=== PATIENT | female | born 1965 | race Caucasian/White ===

== ENCOUNTER 2024-12-05 22:08 | Emergency (ER) | payer BC, SELFPAY ==
--- OUTSIDE RECORDS SUMMARY | 2024-12-05 22:16 | XMS_ITS | Patient Health Record ---
Author Organization [facility] Address [address] [facility] 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 Name Role Phone Rocky Disla Primary Care Provider Unavailab le Allergies Allergen (clinical drug ingredient) Drug/Non Drug Allergy documented on EMR Reaction Allergy Type Onset Date Status angiotensin-converting enzyme inhibitor (FN) vinita inhibitors (uncoded) Unknown Allergy Active Non-steroidal anti-inflammatory agent (FN) nsaids (uncoded) swelling Allergy Active ketamine Ketamine HCl Unknown Drug Allergy Acti ve Reason For Referral No Information Medications Medication SIG (Take, Route, Frequency, Duration) Notes Start Date End Date Status Carvedilol 6.25 MG TAKE ONE (1) TABLET(S) BY MOUTH TWICE A DAY. Oral; Duration: 30 Active Colchicine-Probenecid 0.5-500 MG TAKE ONE (1) TABLET(S) BY MOUTH TWICE A DAY. Oral; Duration: 30 Active oxyBUTYnin Chloride 5 MG TAKE TWO (2) TABLET(S) BY MOUTH TWICE A DAY. Oral; Duration: 30 Active Cyclobenzaprine HCl 10 MG TAKE ONE (1) TABLET(S) BY MOUTH EVERY EIGHT HOURS NEEDED. Oral; Duration: 30 Not-Taking Vitamin D (Ergocalciferol) 45816 UNIT TAKE ONE (1) CAPSULE(S) BY MOUTH ONCE A WEEK. Oral; Duration: 30 Active Montelukast Sodium 10 MG 1 tablet Orally Once a day; Duration: 30 day(s) 12/24/2018 Active Lyrica 50 MG 1 capsule Orally twice daily; Duration: 30 days 02/03/2019 Active rOPINIRole HCl 2 MG TAKE TWO (2) TABLET(S) BY MOUTH ONCE A DAY AT BEDTIME. Oral; Duration: 30 Active Citalopram Hydrobromide 40 MG TAKE ONE AND ONE-HALF (1 AND 1/2) TABLET(S) BY MOUTH ONCE A DAY. Oral; Duration: 30 Active Omeprazole 40 MG TAKE ONE (1) CAPSULE(S) BY MOUTH ONCE A DAY. Oral; Duration: 30 Active Methocarbamol 750 MG TAKE ONE (1) TABLET(S) BY MOUTH THREE TIMES A DAY FOR 7 DAYS. Oral; Duration: 30 Not-Taking Social History Tobacco Use: Social History Observation Description Date Details (start date - stop date) Never Smoker NA - NA Tobacco Use/Smoking Question Answer Notes Are you a nonsmoker Problems Problem Type SNOMED Code ICD Code Onset Dates Problem Status W/U Status Risk Notes Problem Fibromyalgia (421408974) Fibromyalgia (M79.7) Active confirmed Plan Of Treatment No Information Insurance Providers Payer Name Payer Address Payer Phone Subscriber Number Group Number Insured Name Patient Relationship to Insured Coverage Start Date Coverage End Date [facility] [address] [place] [address] [id number] LALY GEORGE Self - patient is the insured 9 Medical (General) History Medical History History ICD Code stroke: No seizures: No schizophrenia: No restless leg syndrome: Yes neuropathy: Yes memory loss: Yes ischemic heart disease: No hypertension: Yes hyperlipidemia: No diabetes, type I: No diabetes, type II: No vitamin B12 deficiency: No Surgical History Surgery Date(Month/Year) tubal 1993 foot 2008 hernia 2004 ovarian cyst 2004 cataract 2009 Hospitalization History Reason Date(Month/Year) blood transfusion 2015
--- OUTSIDE RECORDS SUMMARY | 2024-12-05 22:16 | XMS_ITS | Patient Health Record ---
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 Name Role Phone Patric Lynn DO Primary Care Provider Unavailab le Allergies Allergen (clinical drug ingredient) Drug/Non Drug Allergy documented on EMR Reaction Allergy Type Onset Date Status hydrogen peroxide Hydrogen Peroxide (uncoded) Unknown Allergy Active Vicodin Unknown Drug Allergy Active Naproxen Unknown Drug Allergy Active Lodine Unknown Drug Allergy Active ibuprofen Unknown Drug Allergy Active celecoxib Celebrex Unknown Drug Allergy Active Reason For Referral No Information Medications Medication SIG (Take, Route, Fr equency, Duration) Notes Start Date End Date Status Mobic 7.5 mg 1 tab(s) orally once daily Active Lyrica 100 mg 1 cap by mouth bid Active Lexapro 1 tab(s) orally once daily Active Iron as directed qd Activ e Benicar 20 mg 1 tab(s) orally once daily for 30 day(s) Active melatonin 3 mg 1 tab qd Activ e Ambien 5 mg 1 tab(s) orally at b edtime for 30 day(s) Active Plan Of Treatment No Information Medical (General) History Medical History History ICD Code hypertension depression anemia headache polymyalgia rheumatica Surgical History Surgery Date(Month/Year) tubal ligation 1992 Foot Surgery (right) 1999 Gallbladder 2005 Hernia repair 2006,2007
--- OUTSIDE RECORDS SUMMARY | 2024-12-05 22:17 | XMS_ITS | Clinical Summary ---
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 Active ergocalciferol (ERGOCALCIFEROL) 1,250 mcg (50,000 unit) capsule Take 1 capsule (50,000 Units total) by mouth every 7 (seven) days. Active montelukast (SINGULAIR) 10 mg tablet Take 1 tablet (10 mg total) by mouth daily. Active carvediloL (COREG) 6.25 MG tablet Take 1 tablet (6.25 mg total) by mouth 2 (two) times daily. Active hyoscyamine (SYMAX DUOTAB) 0.125 mg-0.25 mg (0.375 mg) TbMP extended release tablet Take 1 tablet (0.375 mg total) by mouth every 12 (twelve) hours. Active omeprazole (PRILOSEC) 40 MG capsule Take 1 capsule (40 mg total) by mouth daily. Active cyclobenzaprine (FLEXERIL) 5 MG tabletIndication s:Fibromyalgia Take 1 tablet (5 mg total) by mouth nightly. Active acetaminophen (TYLENOL) 500 MG tabletIndication s:Fibromyalgia Take 1,000 mg by mouth every 6 (six) hours as needed for pain. Active semaglutide (OZEMPIC) 1 mg/dose (2 mg/1.5 mL) PnIjIndications: Morbid obesity with BMI of 50.0-59.9, adult ([facility]) Inject 0.75 mLs (1 mg total) under the skin every 7 (seven) days Inject 1 mg into the skin every 7 days Pt stated she is doing compounded med taking 20 units weekly . Active traMADoL (ULTRAM) 50 mg tabletIndication s:acute pain Take 1 tablet (50 mg total) by mouth every 8 (eight) hours as needed for pain. Indications: acute pain 30 tablet 5 Active methylPREDNISolo ne (MEDROL DOSEPACK) 4 mg tabletIndication s:Acute bronchitis, unspecified organism Take 21 tablets (84 mg total) by mouth As directed Follow package directions.. 21 each 5 Active Active Problems Problem Noted Date Diagnosed Date Depressive disorder 06/24/2024 Anxiety disorder, unspecified 06/24/2024 Body mass index (BMI) 50.0-59.9, adult 5 Fibromyalgia 06/24/2024 Family History Medical History Relation Name Comments Cancer Father Heart disease Father Abnormal EKG Mother Relation Name Status Comments Brother Alive Daughter 1 Alive Daughter 2 Alive Daughter 3 Alive Father Mother Alive Other Son 1 Alive Son 2 Alive Social History Tobacco Use Types Packs/Day Years Used Date Smoking Tobacco: Never Smokeless Tobacco: Never Tobacco Cessation:Counseling Given: Not Answered Alcohol Use Standard Drinks/Week Comments Not Currently 0 (1 standard drink = 0.6 oz pur e alcohol) Depression Answer Date Recorded PHQ-2 Score 1 06/24/2024 Last PHQ-9 Score Not on file 06/24/2024 Interpersonal Safety Answer Date Record ed Feels UN-safe at Home or Work/School no 01/24/2024 Feels Unsafe Not on file 01/24/2024 Physical Signs of Abuse Present no 01/24/2024 Comments No Sex and Gender Information Value Date Recorded Sex Assigned at Not on file Legal Sex Female 10:38 PM CDT Gender Identity Not on file Sexual Orientation Not on file Last Filed Vital Signs Vital Sign Reading Time Taken Comments Blood Pressure 126/70 06/24/2024 4:19 PM BIOLOGY LABORATORY ASSISTANT Pulse 69 06/24/2024 4:19 PM BIOLOGY LABORATORY ASSISTANT Temperature 36.7 C (98.1 F) 06/24/2024 4:19 PM BIOLOGY LABORATORY ASSISTANT Respiratory Rate 18 06/24/2024 4:19 PM BIOLOGY LABORATORY ASSISTANT Oxygen Saturation 97% 06/24/2024 4:19 PM BIOLOGY LABORATORY ASSISTANT Inhaled Oxygen Concentration - - Weight 139.7 kg (308 lb) 08/18/2024 8:48 AM CDT Height 165.1 cm (5' 5 ) 08/18/2024 8:48 AM CDT Body Mass Index 51.25 08/18/2024 8:48 AM CDT Plan of Treatment Upcoming Encounters Date Type Department Care Team (Late st Contact Info) Description 12/19/2024 3:15 PM CDT Office Visit [facility] [place] [facility] [place] [address] [place] [address] Anders Leon PA-C [address] [place], [place] [id number] Health Maintenance Due Date Last Done Comments Colorectal Cancer Screening: CT Colonography 1963 Colorectal Cancer Screening: Colonoscopy 1963 Colorectal Cancer Screening: FIT-DNA 1963 Colorectal Cancer Screening: Fecal Occult Blood 1963 Colorectal Cancer Screening: Sigmoidoscopy 1963 Colorectal Cancer Screening 1963 Hepatitis C Screening Adults 1963 Kidney Health Evaluation 1973 Preventive Visit (Non-Medicare) 1981 Pneumococcal Vaccine (50+) ( 1 of 2 - PCV) 1982 Tetanus Booster Vaccines 1982 Zoster Vaccine (1 of 2) 1982 Lipid Screening 1983 Cervical Cancer Screening: P ap Smear 1984 Cervical Cancer Screening: HPV/Cotest 1993 Cervical Cancer Screening 1993 Breast Cancer Screening (Bilateral) 04/22/2013 04/22/2012, 04/22/2012 COVID-19 Vaccine (3 - Modern a risk series) 11/03/2020 10/06/2020, 08/25/2020 RSV (Adults 60+) (1 - Risk 60-74 years 1-dose series) 2023 Seasonal Influenza Vaccine (#1) 2025 Mood Screen 06/24/2025 06/24/2024 HPV Vaccines Aged Out No longer eligi ble based on patient's age to complete this topic Hepatitis A Vaccines Aged Out No long er eligible based on patient's age to complete this topic Hepatitis B Vaccines Aged Out No long er eligible based on patient's age to complete this topic Hib Vaccines Aged Out No longer eligi ble based on patient's age to complete this topic Meningococcal (ACWY) Vaccines Aged Out No longer eligible based on patient's age to complete this topic Meningococcal B Vaccine Aged Out No l onger eligible based on patient's age to complete this topic Pediatric RSV Vaccines Aged Out No lo nger eligible based on patient's age to complete this topic Polio Vaccines Aged Out No longer theresa gible based on patient's age to complete this topic Insurance [facility] EXCHANGE [facility] EXCHANGE [facility] EXCHANGE [facility] Care Teams Senior Business Manager Relationship Specialty Start Date End Date Octavio Santos MD [address] [id number] [address] [place] [address] PCP - General Family Medicine 06/24/24
--- OUTSIDE RECORDS SUMMARY | 2024-12-05 22:17 | XMS_ITS | Data Portability ---
Author Organization [place] - Dr. Rocky Disla, [facility], [employer] Address [address] [address] Assessment Encounter Date Assessment Date Assessment LastModified by Organization Details LastModified Time 05/19/2024 05/19/2024 Patient presented for follow up of labs. Studies ordered as below. Discussed plan with patient, who expressed understanding. Follow up as noted below. Not available 05/19/2024 16:40:58 09/25/2024 09/25/2024 Greater than 30 minutes spent discussing educating plan of care evaluating diagnostic studies and redeveloping plan of care. With and without patient today. [email or web address] Not available 09/25/2024 16:31:34 11/19/2024 11/19/2024 Patient presented for follow up of labs. Studies ordered as below. Discussed plan with patient, who expressed understanding. Follow up as noted below. 38 minutes spent discussing, educating, planning care, reviewing labs with and without patient today. Not available 11/19/2024 19:03:25 Plan of Treatment Reminders Order Date Submit Date Provider Last Modified By Organization Details Last Modified Time Details Appointments None recorded. Lab vitamin D, 25-hydroxy , total, serum 2024 025 [facility], [address], [address], [place], [address], 18:04:51 CBC w/ auto diff 2024 025 [facility], [address], [address], [place], [address], 5 18:04:52 CMP, serum or plasma 2024 025 [facility], [address], [address], [place], [address], 5 18:04:51 lipid panel, serum 2024 025 [facility], [address], [address], [place], [address], 5 18:04:52 microalbum in/creatin ine, mass ratio, urine 2024 025 [facility], [address], [address], [place], [address], 5 18:04:52 vitamin D, 25-hydroxy , total, serum 2023 025 [facility], [address], [address], [place], [address], 5 11:04:14 CBC w/ auto diff 2023 025 [facility], [address], [address], [place], [address], 5 11:04:11 CMP, serum or plasma 2023 025 [facility], [address], [address], [place], [address], 5 11:04:12 lipid panel, serum 2023 025 [facility], [address], [address], [place], [address], 5 11:04:13 microalbum in/creatin ine, mass ratio, urine 2023 025 [facility], [address], [address], [place], [address], 5 11:04:14 Referral orthopedic surgeon referral 2023 0[facility], [address], [address], [place], [address], 4 17:12:45 Procedures None recorded. Surgeries None recorded. Imaging XR, hand, 2 view 2024 025 [facility] ([facility]), [address] [place], [address], 5 17:21:32 Medication Orders tramadol 50 mg tablet [address], [id number], 5 18:04:45 oxybutynin chloride 5 mg tablet [address], [id number], 5 18:04:43 carvedilol 6.25 mg tablet [address], [id number], 5 18:04:44 amlodipine 5 mg tablet [address], [id number], 5 18:04:44 levofloxac in 500 mg tablet [address], [id number], 5 17:05:38 compounded medication 2024 025 [facility], 1928–[facility], [address], [address], 5 16:05:16 omeprazole 40 mg capsule,de layed release [address], [id number], 4 17:23:49 compounded medication [address], [address], [facility] [address], [address], 5 15:27:34 duloxetine 60 mg capsule,de layed release [address], [id number], 4 17:23:44 ergocalcif roberto (vitamin D2) 1,250 mcg (50,000 unit) capsule [address], [id number], 5 17:52:14 cyclobenza shima 5 mg tablet [address], [id number], 4 17:23:42 metronidaz ole 500 mg tablet [address], [id number], 5 15:27:15 ciprofloxa refugio 500 mg tablet 2023 024 [facility] [place], [facility] [address] [place], [place], [id number], 15:27:07 carvedilol 6.25 mg tablet 2023 024 [facility] [place] [address] [place], [place], [id number], 17:23:48 tramadol 50 mg tablet [address] [facility] [place] [address] [place], [place], [id number], 15:28:00 Patient TargetsNo targets recorded. Patient InstructionsNo instructions recorded. Reason for Referral Orthopedic Surgeon Referral for Pain of right shoulder joint Right shoulder pain Referring Physician: Birgit Mcrae, Family Medicine, Encounter Date: 08/09/2023 Results Created Date Observation Date Name Description Value Unit Range Abnormal Flag Note LastModifiedBy Organization Detail LastModifiedTime 05/12/2005/13/2024 CBC W/AUT O DIFF WITH PLATE LETS WBC 5.3 K/uL 3.5-11 .0 Not Available [facility] Main Lab (Blood Not Drawn At This Location) Visit [employer] [place], [address], 05/13/2024 09:08:23 05/12/2005/13/2024 CBC W/AUT O DIFF WITH PLATE LETS RBC 4.59 M/uL 3.80-5 .40 Not Available [facility] Main Lab (Blood Not Drawn At This Location) Visit [employer] [place], [address], 05/13/2024 09:08:23 05/12/20 24 05/13/2024 CBC W/AUT O DIFF WITH PLATE LETS hemoglobin 12.4 g/dL 11.5-1 5.5 Not Available [facility] Main Lab (Blood Not Drawn At This Location) Visit [employer] [place], [address], 05/13/2024 09:08:23 05/12/20 24 05/13/2024 CBC W/AUT O DIFF WITH PLATE LETS hematocrit 39.4 % 34.0-4 5.0 Not Available [facility] Main Lab (Blood Not Drawn At This Location) Visit [employer] [place], [address], 05/13/2024 09:08:23 05/12/20 24 05/13/2024 CBC W/AUT O DIFF WITH PLATE LETS MCV 85.8 fL 80.0-9 9.0 Not Available [facility] Main Lab (Blood Not Drawn At This Location) Visit [employer] [place], [address], 05/13/2024 09:08:23 05/12/20 24 05/13/2024 CBC W/AUT O DIFF WITH PLATE LETS MCH 27.0 pg 25.0-3 3.0 Not Available [facility] Main Lab (Blood Not Drawn At This Location) Visit [employer] [place], [address], 05/13/2024 09:08:23 05/12/20 24 05/13/2024 CBC W/AUT O DIFF WITH PLATE LETS MCHC 31.5 g/dL 31.0-3 6.0 Not Available [facility] Main Lab (Blood Not Drawn At This Location) Visit [employer] [place], [address], 05/13/2024 09:08:23 05/12/20 24 05/13/2024 CBC W/AUT O DIFF WITH PLATE LETS RDW 13.9 % 11.5-1 5.0 Not Available [facility] Main Lab (Blood Not Drawn At This Location) Visit [employer] [place], [address], 05/13/2024 09:08:23 05/12/20 24 05/13/2024 CBC W/AUT O DIFF WITH PLATE LETS neutrophils 61.1 % Not Available [facility] Main Lab (Blood Not Drawn At This Location) Visit [facility] Location Nearest [facility], [place], [address], 05/13/2024 09:08:23 05/12/20 24 05/13/2024 CBC W/AUT O DIFF WITH PLATE LETS lymphocytes 30.6 % Not Available [facility] - Main Lab (Blood Not Drawn At This Location) Visit [facility] For Location Nearest [facility], [place], [address], 05/13/2024 09:08:23 05/12/20 24 05/13/2024 CBC W/AUT O DIFF WITH PLATE LETS monocytes 6.2 % Not Available [facility] Main Lab (Blood Not Drawn At This Location) Visit [facility] For Location Nearest [facility], [place], [address], 05/13/2024 09:08:23 05/12/20 24 05/13/2024 CBC W/AUT O DIFF WITH PLATE LETS eosinophils 1.5 % Not Available [facility] - Main Lab (Blood Not Drawn At This Location) Visit [facility] For Location Nearest [facility], [place], [address], 05/13/2024 09:08:23 05/12/20 24 05/13/2024 CBC W/AUT O DIFF WITH PLATE LETS basophils 0.4 % Not Available [facility] Main Lab (Blood Not Drawn At This Location) Visit [facility] For Location Nearest [facility], [place], [address], 05/13/2024 09:08:23 05/12/20 24 05/13/2024 CBC W/AUT O DIFF WITH PLATE LETS immature granulocytes 0.2 % Not Available [facility] - Main Lab (Blood Not Drawn At This Location) Visit [employer] [place], [address], 05/13/2024 09:08:23 05/12/20 24 05/13/2024 CBC W/AUT O DIFF WITH PLATE LETS nucleated RBCs 0.0 /100_ WBC's 0.0 Not Available [facility] Main Lab (Blood Not Drawn At This Location) Visit [employer] [place], [address], 05/13/2024 09:08:23 05/12/20 24 05/13/2024 CBC W/AUT O DIFF WITH PLATE LETS platelet count 234 K/uL 130-40 0 Not Available [facility] Main Lab (Blood Not Drawn At This Location) Visit [facility] [place], [address], 05/13/2024 09:08:23 05/12/20 24 05/13/2024 CBC W/AUT O DIFF WITH PLATE LETS absolute neutrophils 3.26 K/uL 1.50-7 .50 Not Available [facility] Main Lab (Blood Not Drawn At This Location) Visit [facility] [place], [address], 05/13/2024 09:08:23 05/12/20 24 05/13/2024 CBC W/AUT O DIFF WITH PLATE LETS absolute lymphocytes 1.63 K/uL 1.00-4 .00 Not Available [facility] Main Lab (Blood Not Drawn At This Location) Visit [facility] [place], [address], 05/13/2024 09:08:23 05/12/20 24 05/13/2024 CBC W/AUT O DIFF WITH PLATE LETS absolute monocytes 0.33 K/uL 0.20-1 .00 Not Available [facility] Main Lab (Blood Not Drawn At This Location) Visit [facility] [place], [address], 05/13/2024 09:08:23 05/12/20 24 05/13/2024 CBC W/AUT O DIFF WITH PLATE LETS absolute eosinophils 0.08 K/uL 0.00-0 .50 Not Available [facility] Main Lab (Blood Not Drawn At This Location) Visit [facility] [place], [address], 05/13/2024 09:08:23 05/12/20 24 05/13/2024 CBC W/AUT O DIFF WITH PLATE LETS absolute basophils 0.02 K/uL 0.00-0 .20 Not Available [facility] Main Lab (Blood Not Drawn At This Location) Visit [employer] [place], [address], 05/13/2024 09:08:23 05/12/20 24 05/13/2024 CBC W/AUT O DIFF WITH PLATE LETS abs immature granulocytes 0.01 K/uL 0.00-0 .10 Not Available [facility] Main Lab (Blood Not Drawn At This Location) Visit [employer] [place], [address], 05/13/2024 09:08:23 05/12/20 24 05/13/2024 CBC W/AUT O DIFF WITH PLATE LETS abs nucleated RBCs 0.00 K/uL 0.00-0 .11 Testi ng Perfo rmed At: [facility] [address] [place] [address] Labor atory Dire tor: Jalen maradiaga, MZhanna. SARAH villafana [id number] [place]. [id number] Not Available [facility] Main Lab (Blood Not Drawn At This Location) Visit [employer] [place], [address], 05/13/2024 09:08:23 05/12/20 24 05/13/2024 COMPR EHENS CESAR METAB OLIC PANEL + E-GFR glucose 109 mg/dL 70-99 high Not Available [facility] Main Lab (Blood Not Drawn At This Location) Visit [employer] [place], [address], 05/13/2024 09:08:24 05/12/20 24 05/13/2024 COMPR EHENS CESAR METAB OLIC PANEL + E-GFR BUN 23 mg/dL 8-23 Not Available [facility] Main Lab (Blood Not Drawn At This Location) Visit [employer] [place], [address], 05/13/2024 09:08:24 05/12/20 24 05/13/2024 COMPR EHENS CESAR METAB OLIC PANEL + E-GFR creatinine 0.96 mg/dL 0.60-1 .30 Not Available [facility] Main Lab (Blood Not Drawn At This Location) Visit [employer] [place], [address], 05/13/2024 09:08:24 05/12/20 24 05/13/2024 COMPR EHENS CESAR METAB OLIC PANEL + E-GFR eGFR (2020 CKD-epi) 68 mL/mi n/1.7 3 >60 Not Available [facility] Main Lab (Blood Not Drawn At This Location) Visit [employer] [place], [address], 05/13/2024 09:08:24 05/12/20 24 05/13/2024 COMPR EHENS CESAR METAB OLIC PANEL + E-GFR calc BUN/creat 24 ratio 6-28 Not Available [facility] Main Lab (Blood Not Drawn At This Location) Visit [employer] [place], [address], 05/13/2024 09:08:24 05/12/20 24 05/13/2024 COMPR EHENS CESAR METAB OLIC PANEL + E-GFR sodium 138 mEq/L 133-14 6 Not Available [facility] Main Lab (Blood Not Drawn At This Location) Visit [employer] [place], [address], 05/13/2024 09:08:24 05/12/20 24 05/13/2024 COMPR EHENS CESAR METAB OLIC PANEL + E-GFR potassium 4.5 mEq/L 3.5-5. 4 Not Available [facility] Main Lab (Blood Not Drawn At This Location) Visit [employer] [place], [address], 05/13/2024 09:08:24 05/12/20 24 05/13/2024 COMPR EHENS CESAR METAB OLIC PANEL + E-GFR chloride 104 mEq/L 95-107 Not Available [facility] Main Lab (Blood Not Drawn At This Location) Visit [facility] [place], [address], 05/13/2024 09:08:24 05/12/20 24 05/13/2024 COMPR EHENS CESAR METAB OLIC PANEL + E-GFR carbon dioxide 27 mEq/L 19-31 Not Available [facility] Main Lab (Blood Not Drawn At This Location) Visit [facility] [place], [address], 05/13/2024 09:08:24 05/12/20 24 05/13/2024 COMPR EHENS CESAR METAB OLIC PANEL + E-GFR calcium 9.1 mg/dL 8.5-10 .5 Not Available [facility] Main Lab (Blood Not Drawn At This Location) Visit [facility] [place], [address], 05/13/2024 09:08:24 05/12/20 24 05/13/2024 COMPR EHENS CESAR METAB OLIC PANEL + E-GFR protein, total 6.7 g/dL 6.1-8. 3 Not Available [facility] Main Lab (Blood Not Drawn At This Location) Visit [employer] [place], [address], 05/13/2024 09:08:24 05/12/20 24 05/13/2024 COMPR EHENS CESAR METAB OLIC PANEL + E-GFR albumin 3.8 g/dL 3.5-5. 2 Not Available [facility] Main Lab (Blood Not Drawn At This Location) Visit [facility] [place], [address], 05/13/2024 09:08:24 05/12/20 24 05/13/2024 COMPR EHENS CESAR METAB OLIC PANEL + E-GFR calc globulin 2.9 g/dL 1.9-3. 7 Not Available [facility] Main Lab (Blood Not Drawn At This Location) Visit [employer] [place], [address], 05/13/2024 09:08:24 05/12/20 24 05/13/2024 COMPR EHENS CESAR METAB OLIC PANEL + E-GFR calc A/G ratio 1.3 ratio 1.0-2. 6 Not Available [facility] Main Lab (Blood Not Drawn At This Location) Visit [employer] [place], [address], 05/13/2024 09:08:24 05/12/20 24 05/13/2024 COMPR EHENS CESAR METAB OLIC PANEL + E-GFR bilirubin, total 0.5 mg/dL <=1.2 Not Available [facility] Main Lab (Blood Not Drawn At This Location) Visit [employer] [place], [address], 05/13/2024 09:08:24 05/12/20 24 05/13/2024 COMPR EHENS CESAR METAB OLIC PANEL + E-GFR alkaline phosphatase 89 U/L 40-136 Not Available [facility] - Main Lab (Blood Not Drawn At This Location) Visit [employer] [place], [address], 05/13/2024 09:08:24 05/12/20 24 05/13/2024 COMPR EHENS CESAR METAB OLIC PANEL + E-GFR AST 14 U/L 9-40 Not Available [facility] Main Lab (Blood Not Drawn At This Location) Visit [employer] [place], [address], 05/13/2024 09:08:24 05/12/20 24 05/13/2024 COMPR EHENS CESAR METAB OLIC PANEL + E-GFR ALT 9 U/L 5-40 Testi ng Perfo rmed At: [facility] [address] [place] [address] Labor atory Dire tor: Denise Hammonds r [id number] [place] [id number] Not Available [facility] Main Lab (Blood Not Drawn At This Location) Visit [employer] [place], [address], 05/13/2024 09:08:24 05/12/20 24 05/13/2024 LIPID PANEL cholesterol 153 mg/dL <200 Not Available [facility] Lab (Blood Not Drawn At This Location) Visit [employer] [place], [address], 05/13/2024 09:08:24 05/12/20 24 05/13/2024 LIPID PANEL triglyceride s 61 mg/dL <150 Not Available [facility] Lab (Blood Not Drawn At This Location) Visit [employer] [place], [address], 05/13/2024 09:08:24 05/12/20 24 05/13/2024 LIPID PANEL HDL cholesterol 68 mg/dL >39 Not Available [facility] - Main Lab (Blood Not Drawn At This Location) Visit [employer] [place], [address], 05/13/2024 09:08:24 05/12/20 24 05/13/2024 LIPID PANEL calc LDL chol 71 mg/dL <100 NOTE: CALCU LATED LDL IS BASED ON TARUN N-HOP KINS METHO D WHICH INCLU HERNANDEZ ADJUS TABLE TRIGL YCERI DE:VL DL GURU STERO L RATIO . THIS FACTO R VARIE S BY MEASU RED TRIGL YCERI DE AND NON-H DL GURU STERO L MICHELLE NTRAT IONS WITH INCRE ASED CALCU LATED LDL SEEN IN HIGHE R TRIGL YCERI DE OR LOWER NON-H DL SPECI MENS. FOR MORE INFOR BRENNA Mary, SEE BITA REGALADO NT AT [email or web address]: [email or web address] Not Available [facility] Main Lab (Blood Not Drawn At This Location) Visit [employer] [place], [address], 05/13/2024 09:08:24 05/12/20 24 05/13/2024 LIPID PANEL risk ratio LDL/HDL 1.04 ratio <3.22 Testi ng Perfo rmed At: [facility] [address] [place] [address] Labor atory Dire tor: Denise Hammonds [id number] [place]. [id number] Not Available [facility] Main Lab (Blood Not Drawn At This Location) Visit [employer] [place], [address], 05/13/2024 09:08:24 05/12/20 24 05/13/2024 ALBUM IN/CR EATIN INE RATIO , URINE , RANDO M creatinine, urine, conc. 276.0 mg/dL not estab Not Available [facility] Main Lab (Blood Not Drawn At This Location) Visit [employer] [place], [address], 05/13/2024 09:08:25 05/12/20 24 05/13/2024 ALBUM IN/CR EATIN INE RATIO , URINE , RANDO M albumin, urine, random 2.9 mg/dL not estab Not Available [facility] Main Lab (Blood Not Drawn At This Location) Visit [employer] [place], [address], 05/13/2024 09:08:25 05/12/20 24 05/13/2024 ALBUM IN/CR EATIN INE RATIO , URINE , RANDO M calc albumin/crea t, rnd 11 mg/g <30 Note: Album in/Cr eatin ine ratio refer ence inter kodi refle cts ADA and NKF guide lines . Testi ng Perfo rmed At: [facility] [address] [place] [address] Labor atory Direc tor: Denise Hammonds [id number] [place] [id number] Not Available [facility] Main Lab (Blood Not Drawn At This Location) Visit [employer] [place], [address], 05/13/2024 09:08:25 05/12/20 24 05/13/2024 VITAM IN D, 25 OH vitamin D, 25 oh 22 NG/mL see below low NOTE: 25-HY DROXY VITAM IN D ASSAY INCLU HERNANDEZ 25-HY DROXY VITAM IN D2 AND D3. INTER PRETI VE RANGE S PEDIA TRIC (<17 YEARS ) . . . . . . . . . . . NG/ML 20-10 0 ADULT : INSUF FICIE NT . . . . . . . . . . . . . . NG/ML <20 SUBOP TIMAL . . . . . . . . . . . . . . . NG/ML 20-29 OPTIM AL . . . . . . . . . . . . . . . . . NG/ML 30-10 0 Testi ng Perfo rmed At: [facility] [address] [place] [address] Labor atory Dire tor: Jalen maradiaga M.D. SARAH Bolanos r [id number] [place]. [id number] Not Available [facility] Main Lab (Blood Not Drawn At This Location) Visit [employer] [place], [address], 05/13/2024 09:08:25 11/14/19 25 11/14/2024 CBC W/AUT O DIFF WITH PLATE LETS WBC 5.8 K/uL 3.5-11 .0 Not Available [facility] Main Lab (Blood Not Drawn At This Location) Visit [employer] [place], [address], 11/14/2024 11:04:11 11/14/19 25 11/14/2024 CBC W/AUT O DIFF WITH PLATE LETS RBC 4.07 M/uL 3.80-5 .40 Not Available [facility] Main Lab (Blood Not Drawn At This Location) Visit [employer] [place], [address], 11/14/2024 11:04:11 11/14/19 25 11/14/2024 CBC W/AUT O DIFF WITH PLATE LETS hemoglobin 11.1 g/dL 11.5-1 5.5 low Not Available [facility] Main Lab (Blood Not Drawn At This Location) Visit [employer] [place], [address], 11/14/2024 11:04:11 11/14/19 25 11/14/2024 CBC W/AUT O DIFF WITH PLATE LETS hematocrit 35.3 % 34.0-4 5.0 Not Available [facility] Main Lab (Blood Not Drawn At This Location) Visit [employer] [place], [address], 11/14/2024 11:04:11 11/14/19 25 11/14/2024 CBC W/AUT O DIFF WITH PLATE LETS MCV 86.7 fL 80.0-9 9.0 Not Available [facility] Main Lab (Blood Not Drawn At This Location) Visit [employer] [place], [address], 11/14/2024 11:04:11 11/14/19 25 11/14/2024 CBC W/AUT O DIFF WITH PLATE LETS MCH 27.3 pg 25.0-3 3.0 Not Available [facility] Main Lab (Blood Not Drawn At This Location) Visit [employer] [place], [address], 11/14/2024 11:04:11 11/14/19 25 11/14/2024 CBC W/AUT O DIFF WITH PLATE LETS MCHC 31.4 g/dL 31.0-3 6.0 Not Available [facility] Main Lab (Blood Not Drawn At This Location) Visit [employer] [place], [address], 11/14/2024 11:04:11 11/14/19 25 11/14/2024 CBC W/AUT O DIFF WITH PLATE LETS RDW 13.7 % 11.5-1 5.0 Not Available [facility] Main Lab (Blood Not Drawn At This Location) Visit [employer] [place], [address], 11/14/2024 11:04:11 11/14/19 25 11/14/2024 CBC W/AUT O DIFF WITH PLATE LETS neutrophils 55.9 % Not Available [facility] Main Lab (Blood Not Drawn At This Location) Visit [employer] [place], [address], 11/14/2024 11:04:11 11/14/19 25 11/14/2024 CBC W/AUT O DIFF WITH PLATE LETS lymphocytes 33.7 % Not Available [facility] Main Lab (Blood Not Drawn At This Location) Visit [employer] [place], [address], 11/14/2024 11:04:11 11/14/19 25 11/14/2024 CBC W/AUT O DIFF WITH PLATE LETS monocytes 7.3 % Not Available [facility] Main Lab (Blood Not Drawn At This Location) Visit [employer] [place], [address], 11/14/2024 11:04:11 11/14/19 25 11/14/2024 CBC W/AUT O DIFF WITH PLATE LETS eosinophils 2.3 % Not Available [facility] Lab (Blood Not Drawn At This Location) Visit [employer] [place], [address], 11/14/2024 11:04:11 11/14/19 25 11/14/2024 CBC W/AUT O DIFF WITH PLATE LETS basophils 0.5 % Not Available [facility] Main Lab (Blood Not Drawn At This Location) Visit [employer] [place], [address], 11/14/2024 11:04:11 11/14/19 25 11/14/2024 CBC W/AUT O DIFF WITH PLATE LETS immature granulocytes 0.3 % Not Available [facility] - Main Lab (Blood Not Drawn At This Location) Visit [facility] [place], [address], 11/14/2024 11:04:11 11/14/19 25 11/14/2024 CBC W/AUT O DIFF WITH PLATE LETS nucleated RBCs 0.0 /100_ WBC's 0.0 Not Available [facility] Main Lab (Blood Not Drawn At This Location) Visit [facility] [place], [address], 11/14/2024 11:04:11 11/14/19 25 11/14/2024 CBC W/AUT O DIFF WITH PLATE LETS platelet count 251 K/uL 130-40 0 Not Available [facility] Main Lab (Blood Not Drawn At This Location) Visit [facility] [place], [address], 11/14/2024 11:04:11 11/14/19 25 11/14/2024 CBC W/AUT O DIFF WITH PLATE LETS absolute neutrophils 3.21 K/uL 1.50-7 .50 Not Available [facility] Main Lab (Blood Not Drawn At This Location) Visit [facility] [place], [address], 11/14/2024 11:04:11 11/14/19 25 11/14/2024 CBC W/AUT O DIFF WITH PLATE LETS absolute lymphocytes 1.94 K/uL 1.00-4 .00 Not Available [facility] Main Lab (Blood Not Drawn At This Location) Visit [facility] [place], [address], 11/14/2024 11:04:11 11/14/19 25 11/14/2024 CBC W/AUT O DIFF WITH PLATE LETS absolute monocytes 0.42 K/uL 0.20-1 .00 Not Available [facility] Lab (Blood Not Drawn At This Location) Visit [facility] [place], [address], 11/14/2024 11:04:11 11/14/19 25 11/14/2024 CBC W/AUT O DIFF WITH PLATE LETS absolute eosinophils 0.13 K/uL 0.00-0 .50 Not Available [facility] Main Lab (Blood Not Drawn At This Location) Visit [facility] [place], [address], 11/14/2024 11:04:11 11/14/19 25 11/14/2024 CBC W/AUT O DIFF WITH PLATE LETS absolute basophils 0.03 K/uL 0.00-0 .20 Not Available [facility] Lab (Blood Not Drawn At This Location) Visit [facility] [place], [address], 11/14/2024 11:04:11 11/14/19 25 11/14/2024 CBC W/AUT O DIFF WITH PLATE LETS abs immature granulocytes 0.02 K/uL 0.00-0 .10 Not Available [facility] Lab (Blood Not Drawn At This Location) Visit [facility] [place], [address], 11/14/2024 11:04:11 11/14/19 25 11/14/2024 CBC W/AUT O DIFF WITH PLATE LETS abs nucleated RBCs 0.00 K/uL 0.00-0 .11 Testi ng Perfo rmed At: [facility] [address] [place] [address] Labor atory Direc tor: Jalen maradiaga M.D. MARGIIA Numbe r [id number] [place]. [id number] Not Available [facility] (Blood Not Drawn At This Location) Visit [facility] [place], [address], 11/14/2024 11:04:11 11/14/19 25 11/14/2024 COMPR EHENS CESAR METAB OLIC PANEL + E-GFR glucose 107 mg/dL 70-99 high Not Available [facility] Lab (Blood Not Drawn At This Location) Visit [facility] [place], [address], 11/14/2024 11:04:12 11/14/19 25 11/14/2024 COMPR EHENS CESAR METAB OLIC PANEL + E-GFR BUN 17 mg/dL 8-23 Not Available [facility] Main Lab (Blood Not Drawn At This Location) Visit [facility] [place], [address], 11/14/2024 11:04:12 11/14/19 25 11/14/2024 COMPR EHENS CESAR METAB OLIC PANEL + E-GFR creatinine 0.91 mg/dL 0.60-1 .30 Not Available [facility] Main Lab (Blood Not Drawn At This Location) Visit [facility] [place], [address], 11/14/2024 11:04:12 11/14/19 25 11/14/2024 COMPR EHENS CESAR METAB OLIC PANEL + E-GFR eGFR (2020 CKD-epi) 72 mL/mi n/1.7 3 >60 Not Available [facility] Lab (Blood Not Drawn At This Location) Visit [facility] [place], [address], 11/14/2024 11:04:12 11/14/19 25 11/14/2024 COMPR EHENS CESAR METAB OLIC PANEL + E-GFR calc BUN/creat 19 ratio 6-28 Not Available [facility] - Main Lab (Blood Not Drawn At This Location) Visit [facility] [place], [address], 11/14/2024 11:04:12 11/14/19 25 11/14/2024 COMPR EHENS CESAR METAB OLIC PANEL + E-GFR sodium 138 mEq/L 133-14 6 Not Available [facility] Main Lab (Blood Not Drawn At This Location) Visit [facility] [place], [address], 11/14/2024 11:04:12 11/14/19 25 11/14/2024 COMPR EHENS CESAR METAB OLIC PANEL + E-GFR potassium 4.5 mEq/L 3.5-5. 4 Not Available [facility] Main Lab (Blood Not Drawn At This Location) Visit [facility] [place], [address], 11/14/2024 11:04:12 11/14/19 25 11/14/2024 COMPR EHENS CESAR METAB OLIC PANEL + E-GFR chloride 102 mEq/L 95-107 Not Available [facility] Main Lab (Blood Not Drawn At This Location) Visit [facility] [place], [address], 11/14/2024 11:04:12 11/14/19 25 11/14/2024 COMPR EHENS CESAR METAB OLIC PANEL + E-GFR carbon dioxide 26 mEq/L 19-31 Not Available [facility] Lab (Blood Not Drawn At This Location) Visit [facility] [place], [address], 11/14/2024 11:04:12 11/14/19 25 11/14/2024 COMPR EHENS CESAR METAB OLIC PANEL + E-GFR calcium 9.3 mg/dL 8.5-10 .5 Not Available [facility] Main Lab (Blood Not Drawn At This Location) Visit [facility] [place], [address], 11/14/2024 11:04:12 11/14/19 25 11/14/2024 COMPR EHENS CESAR METAB OLIC PANEL + E-GFR protein, total 6.5 g/dL 6.1-8. 3 Not Available [facility] Main Lab (Blood Not Drawn At This Location) Visit [facility] [place], [address], 11/14/2024 11:04:12 11/14/19 25 11/14/2024 COMPR EHENS CESAR METAB OLIC PANEL + E-GFR albumin 3.6 g/dL 3.5-5. 2 Not Available [facility] Main Lab (Blood Not Drawn At This Location) Visit [facility] [place], [address], 11/14/2024 11:04:12 11/14/19 25 11/14/2024 COMPR EHENS CESAR METAB OLIC PANEL + E-GFR calc globulin 2.9 g/dL 1.9-3. 7 Not Available [facility] Main Lab (Blood Not Drawn At This Location) Visit [facility] [place], [address], 11/14/2024 11:04:12 11/14/19 25 11/14/2024 COMPR EHENS CESAR METAB OLIC PANEL + E-GFR calc A/G ratio 1.2 ratio 1.0-2. 6 Not Available [facility] - Main Lab (Blood Not Drawn At This Location) Visit [facility] [place], [address], 11/14/2024 11:04:12 11/14/19 25 11/14/2024 COMPR EHENS CESAR METAB OLIC PANEL + E-GFR bilirubin, total 0.6 mg/dL <=1.2 Not Available [facility] - Main Lab (Blood Not Drawn At This Location) Visit [facility] [place], [address], 11/14/2024 11:04:12 11/14/19 25 11/14/2024 COMPR EHENS CESAR METAB OLIC PANEL + E-GFR alkaline phosphatase 99 U/L 40-140 Not Available [facility] - Main Lab (Blood Not Drawn At This Location) Visit [facility] [place], [address], 11/14/2024 11:04:12 11/14/19 25 11/14/2024 COMPR EHENS CESAR METAB OLIC PANEL + E-GFR AST 12 U/L 9-40 Not Available [facility] Main Lab (Blood Not Drawn At This Location) Visit [facility] [place], [address], 11/14/2024 11:04:12 11/14/19 25 11/14/2024 COMPR EHENS CESAR METAB OLIC PANEL + E-GFR ALT 11 U/L 5-40 Testi ng Perfo rmed At: [facility] [address] [place] [address] Labor atory [facility] tor: Jalen maradiaga M.D. SARAH Bolanos r [id number] [place] [id number] Not Available [facility] - Main Lab (Blood Not Drawn At This Location) Visit [facility] [place], [address], 11/14/2024 11:04:12 11/14/19 25 11/14/2024 LIPID PANEL cholesterol 155 mg/dL <200 Not Available [facility] Lab (Blood Not Drawn At This Location) Visit [facility] [place], [address], 11/14/2024 11:04:13 11/14/19 25 11/14/2024 LIPID PANEL triglyceride s 72 mg/dL <[address] [facility] - Main Lab (Blood Not Drawn At This Location) Visit [facility] [place], [address], 11/14/2024 11:04:13 11/14/19 25 11/14/2024 LIPID PANEL HDL cholesterol 72 mg/dL >39 Not Available [facility] - Main Lab (Blood Not Drawn At This Location) Visit [facility] [place], [address], 11/14/2024 11:04:13 11/14/19 25 11/14/2024 LIPID PANEL calc LDL chol 68 mg/dL <100 NOTE: CALCU LATED LDL IS BASED ON TARUN N-HOP KINS METHO D WHICH INCLU HERNANDEZ ADJUS TABLE TRIGL YCERI DE:VL DL GURU STERO L RATIO . THIS FACTO R VARIE S BY MEASU RED TRIGL YCERI DE AND NON-H DL GURU STERO L MICHELLE NTRAT IONS WITH INCRE ASED CALCU LATED LDL SEEN IN HIGHE R TRIGL YCERI DE OR LOWER NON-H DL SPECI MENS. FOR MORE INFOR BRENNA Mary, SEE BITA REGALADO NT AT [email or web address]: [email or web address] Not Available [facility] - Main Lab (Blood Not Drawn At This Location) Visit [facility] [place], [address], 11/14/2024 11:04:13 11/14/19 25 11/14/2024 LIPID PANEL risk ratio LDL/HDL 0.94 ratio <3.22 Testi ng Perfo rmed At: [facility] [address] [place] [address] Labor atory Dire tor: Denise HammondsIA Luis Miguel r [id number] [place] [id number] Not Available [facility] Main Lab (Blood Not Drawn At This Location) Visit [facility] [place], [address], 11/14/2024 11:04:13 11/14/19 25 11/14/2024 ALBUM IN/CR EATIN INE RATIO , URINE , RANDO M creatinine, urine, conc. 76.9 mg/dL not estab Not Available [facility] Main Lab (Blood Not Drawn At This Location) Visit [facility] [place], [address], 11/14/2024 11:04:14 11/14/19 25 11/14/2024 ALBUM IN/CR EATIN INE RATIO , URINE , RANDO M albumin, urine, random 0.4 mg/dL not estab Not Available [facility] - Main Lab (Blood Not Drawn At This Location) Visit [facility] [place], [address], 11/14/2024 11:04:14 11/14/19 25 11/14/2024 ALBUM IN/CR EATIN INE RATIO , URINE , RANDO M calc albumin/crea t, rnd 5 mg/g <30 Note: Album in/Cr eatin ine ratio refer ence inter kodi refle cts ADA and NKF guide lines . Testi ng Perfo rmed At: [facility] [employer] [address] [place] [address] Labor [employer] Dire tor: Denise Hammonds r [id number] [place] [id number] Not Available [facility] Main Lab (Blood Not Drawn At This Location) Visit [facility] [place], [address], 11/14/2024 11:04:14 11/14/19 25 11/14/2024 VITAM IN D, 25 OH vitamin D, 25 oh 18 NG/mL see below low NOTE: 25-HY DROXY VITAM IN D ASSAY INCLU HERNANDEZ 25-HY DROXY VITAM IN D2 AND D3. INTER PRETI VE RANGE S PEDIA TRIC (<17 YEARS ) . . . . . . . . . . . NG/ML 20-10 0 ADULT : INSUF FICIE NT . . . . . . . . . . . . . . NG/ML <20 SUBOP TIMAL . . . . . . . . . . . . . . . NG/ML 20-29 OPTIM AL . . . . . . . . . . . . . . . . . NG/ML 30-10 0 Testi ng Perfo rmed At: [facility] [address] [place] [address] Labor [employer] Dire tor: Denise Hammonds r [id number] [place] [id number] Not Available [facility] Main Lab (Blood Not Drawn At This Location) Visit [facility] [place], [address], 11/14/2024 11:04:14 11/14/19 25 11/19/2024 NOTE: note: (NOTE) IN ACCOR DANCE WITH PASCUAL [place] GUIDE LINES REQUI RING ALL VERBA L REQUE STS FOR LABOR ATORY TESTS TO BE ACCOM CHERISE Lopez BY MARIBEL EN ALMA DELIAO RIAMPAROT ION WITHI N [address], PLEAS E SIGN BELOW AND RETUR N A COPY OF THIS REPOR T BY FAX TO THE LABOR ATORY SCANN ING DEPAR TMENT AT [phone]. PHYSI PATITO' S SIGNA TURE DATE Testi ng Perfo rmed At: [facility] [address] [place] [address] Labor atory Direc tor: Denise Hammonds r [id number] [place] [id number] Not Available [facility] Main Lab (Blood Not Drawn At This Location) Visit [facility] [place], [address], 11/19/2024 07:09:22 11/14/19 25 11/18/2024 HEMOG LOBIN A1C hemoglobin A1C 5.6 % 4.2-5. 6 Testi ng Perfo rmed At: [facility] [employer] [facility] [address] [place] [address] Labor atory Dire tor: Denise Hammonds Numbe r [id number] [place] [id number] Not Available [facility] - Main Lab (Blood Not Drawn At This Location) Visit [facility] [place], [address], 11/19/2024 07:09:23 09/26/19 25 09/25/2024 XR, hand, 2 view No observ ation record ed. [address] (Medical Records) [address] [place], [address], 09/26/2024 08:09:53 09/26/19 25 09/25/2024 XR, hand, 2 view No observ ation record ed. [email or web address] [facility] (Medical Records) [address], [place], [address], 09/25/2024 17:58:50 Result Notes None recorded. 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 Rocky Disla, [facility] 0 18:24:08 Dehydrat ion 39959945 Active 2016 CJ lamb - Dr. Rocky Disla, [facility] 7 10:24:45 Wheezing 04512912 Active 2016 CJ lamb - Dr. Rocky Disla, [facility] 7 16:49:39 Cough 15304665 Completed 201611/14/2017 Removal Reason: resolved CJ lamb - Dr. Rocky Disla, [facility] 0 18:24:08 Communit y acquired pneumoni a 704477262 Completed 201611/20/2018 CJ Regalado - Dr. Rocky Disla, [facility] 9 23:02:33 Increase d frequenc y of urinatio n 877742977 Active [address] [facility] 7 17:15:03 Restless legs 95891466 Active [address] [facility] 7 17:16:05 Acute pharyngi tis 760774811 Completed 201611/20/[address] [facility] 9 12:44:41 Candidia sis of skin 33400660 Active [address] [facility] 7 11:59:32 Sinusiti s 22882043 Completed 201711/20/[address] [facility] 9 23:02:36 Perimeno pausal disorder 610539227 Active 2017 richard gordon, [place] - Dr. Rocky Disla, [facility] 8 16:47:10 Adult health examinat ion Completed 201711/14/2017 Removal Reason: resolved richard gordon, C[place] - Dr. Rocky Disla, [facility] 2 10:45:19 Hyperlip idemia screenin g Completed 201711/14/2017 Removal Reason: resolved richard gordon, [place] - Dr. Rocky Disla, [facility] 2 10:45:31 Mixed anxiety and depressi ve disorder 721929982 Active 2017 CJ lamb - Dr. Rocky Disla, [facility] 8 14:04:30 Benign essentia l hyperten kevin 6025891 Active 2017 CJ lamb - Dr. Rocky Disla, [facility] 8 14:04:31 Gynecolo gic examinat ion Completed 201711/20/2018 Removal Reason: complete d CJ Regalado - Dr. Rocky Disla, [facility] 9 23:02:54 Seasonal allergic rhinitis 493935758 Active [address] [facility] 8 14:06:19 Vitamin D deficien cy 82657746 Active [address] [facility] 8 17:13:33 Acute ethmoida l sinusiti s 36144103 Active [address] [facility] 8 17:13:37 Obesity 247130982 Active [address] [facility] 8 15:40:51 Nausea and vomiting 87198711 Active 2017 CJ lamb - Dr. Rocky Disla, [facility] 8 15:40:52 Myalgia/ myositis - multiple 642757849 Active 2017 richard gordon, [place] - Dr. Rocky Disla, [facility] 8 15:40:53 Acute sinusiti s 18928340 Active 2018 richard gordon, [place] - Dr. Rocky Disla, [facility] 9 17:56:24 Knee pain Active 2018 richard gordon, [place] - Dr. Rocky Disla, [facility] 9 17:59:04 Fatigue 73071077 Active 2018 richard gordon, [place] - Dr. Rocky Disla, [facility] 9 17:59:20 Otitis externa 9483179 Completed 201811/20/2018 Rita gordon, [place] - Dr. Rocky Disla, [facility] 9 23:02:22 Morbid obesity 931662679 Active 2018 Rita gordon, [place] - Dr. Rocky Disla, [facility] 9 18:21:49 Spasm 16540699 Active 2018 Rita gordon, [place] - Dr. Rocky Disla, [facility] 9 18:54:32 Lumbago with sciatica 505854809 Active 2018 Rita gordon, [place] - Dr. Rocky Disla, [facility] 9 15:37:29 Streptoc occal tonsilli tis 59797076 Active 2018 Rita gordon, [place] - Dr. Rocky Disla, [facility] 9 12:43:18 Generali zed acute body pains 992241700 Active 2018 Rita gordon, [place] - Dr. Rocky Disla, [facility] 9 12:44:37 Acute pharyngi tis 578108909 Active 2018 Rita gordon, [place] - Dr. Rocky Disla, [facility] 9 12:44:41 Muscle pain 57076238 Active 2019 richard gonzalez null, [place] - Dr. Rocky Disla, [facility] 0 11:02:34 Influenz a 1083565 Active 2019 richard gonzalez null, [place] - Dr. Rocky Disla, [facility] 0 11:19:11 Sore throat 190347634 Active 2019 richard gordon, [place] - Dr. Rocky Disla, [facility] 0 11:19:28 Streptoc occal sore throat 82139768 Active 2019 richard gordon, [place] - Dr. Rocky Disla, [facility] 0 11:24:37 Dyspnea 136403918 Active 2019 richard gordon, [place] - Dr. Rocky Disla, [facility] 0 18:24:07 Cough 17489907 Active 2019 richard gordon, [place] - Dr. Rocky Disla, [facility] 0 18:24:08 Respirat ory tract congesti on and cough 396924622 Active 2019 richard gordon, [place] - Dr. Rocky Disla, [facility] 0 18:24:10 Diarrhea 28217990 Active 2019 richard gordon, [place] - Dr. Rocky Disla, [facility] 0 18:24:10 Feeling nervous 262293389 Active 2019 richard gordon, [place] - Dr. Rocky Disla, [facility] 0 11:25:44 Abdomina l pain 14545524 Active 2019 Rubio Garza null, [place] - Dr. Rocky Disla, [facility] 0 11:09:07 Severe obesity 11242181937 104 Active 2019 Rubio Garza null, [place] - Dr. Rocky Disla, [facility] 0 13:46:58 Body mass index 40+ - severely obese 844411130 Active 2019 Rubiocholo Garza null, [place] - Dr. Rocky Disla, [facility] 0 13:46:59 Acute bronchit is 55284019 Active 2019 Rubio Garza null, [place] - Dr. Rocky Disla, [facility] 0 14:38:44 Gastroes ophageal reflux disease without esophagi tis 994675527 Active 2019 Rubiocholo Garza null, [place] - Dr. Rocky Disla, [facility] 0 09:53:46 Chronic kidney disease stage 3 935850349 Active 2019 Adrian Greg null, [place] - Dr. Rocky Disla, [facility] 0 18:12:28 Divertic ulitis of colon 321567299 Active 2020 richard gordon, [place] - Dr. Rocky Disla, [facility] 1 17:50:44 Candidia sis of vagina 39097127 Active 2020 richard gordon, [place] - Dr. Rocky Disla, [facility] 1 11:08:55 Exposure to SARS-CoV -2 Active 2020 richard gordon, [place] - Dr. Rocky Disla, [facility] 1 10:27:57 Pain in throat 106943346 Active 2020 richard gordon, [place] - Dr. Rocky Disla, [facility] 1 10:29:21 Allergy Active 2021 RONAL Goins [address], [address] , [place] - Dr. Rocky Disla, [facility] 2 11:53:32 Generali zed anxiety disorder 37249915 Active 2021 RONAL Goins [address], [address], [place] - Dr. Rocky Disla, [facility] 2 15:10:52 Edema of lower extremit y 946219338 Active 2021 Tevin Thor, [employer] [address] [facility] [address], [place], [address], [place] - Dr. Rocky Disla, [facility] 2 15:13:48 Adult health examinat ion Active 2021 richard gordon, [place] - Dr. Rocky Disla, [facility] 2 10:45:19 Hyperlip idemia screenin g Active 2021 richard gordon, [place] - Dr. Rocky Disla, [facility] 2 10:45:31 Screenin g for osteopor osis Active 2021 richard gordon, [place] - Dr. Rocky Disla, [facility] 2 10:46:48 Screenin g mammogra phy of bilatera l breasts Active 2021 richard gordon, [place] - Dr. Rocky Disla, [facility] 2 10:46:58 Renewal of prescrip tion Active 2021 richard gordon, [place] - Dr. Rocky Disla, [facility] 2 16:23:41 Nocturna l sleep-re lated eating disorder 659909537 Active 2021 richard gordon, [place] - Dr. Rocky Disla, [facility] 2 16:25:30 Sleep disorder 39459689 Active 2021 richard gordon, [place] - Dr. Rocky Disla, [facility] 2 16:26:15 Insomnia 470221746 Active 2021 richard gordon, [place] - Dr. Rocky Disla, [facility] 2 16:32:20 Anemia 347265924 Active 2021 richard gordon [place] - Dr. Rocky Disla, [facility] 2 07:58:09 COVID-19 733052621 Active 2022 Tevin MARLENE McraeP-C [address] [address], [place], [address], [place] - Dr. Rocky Disla, [facility] 3 16:46:22 Prediabe ida 668564133 Active 2022 richard gordon, [place] - Dr. Rocky Disla, [facility] 3 08:40:42 Lower abdomina l pain 44960541 Active 2022 CJ lamb - Dr. Rocky Disla, [facility] 3 16:07:27 Derangem ent of joint of hand 49018936283 9109 Active 2024 Tevin Mcrae [facility]- [address] [address], [place], [address], [place] - Dr. Rocky Disla, [facility] 5 17:48:45 Notes:Some problems listed i n Documents: #[id number], #[id number] could not be added to this patient's chart. Please review these documents and add these problems to the patient's chart manually as needed. Problem Notes None recorded. Procedures Surgical History Date Name Laterality Status Provider Name and Address Organization Details Recorded Time 12/02/19 20 Skin Tag Removal completed Rubio Garza [place] - Dr. Fr sydney Disla, [facility] 12/04/2019 20:18:53 10/13/19 17 Nebulizer tx completed richard Disla, [facility] 10/12/2016 17:30:48 Cataract Surgery completed FILIPE Shen - Dr. Rocky Disla, [facility] 02/14/2016 16:33:13 Cholecystectomy completed FILIPE Shen - Dr. Rocky Disla, [facility] 02/14/2016 16:33:22 Hernia Repair completed FILIPE Shen - Dr. Rocky Disla, [facility] 02/14/2016 16:33:31 Tubal Ligation completed Jenifer Ortez [place] - Dr. Rocky Disla, [facility] 02/14/2016 16:33:47 Colonoscopy completed FILIPE Shen - Dr. Rocky Disla, [facility] 02/14/2016 16:37:21 Imaging Results None recorded. Procedure Notes None recorded. Medical Equipment None Reported. Allergies Allergen ID Allergen Name Allergen Category Reaction Reaction Severity Criticality Documentation Date Start Date Code Code System Note Provider Name and Address Organization Details Recorded Time 3301 Non-stero idal anti-infl ammatory agent (product) medicatio n Not available Not available Not available 02/14/2016 56406 005 SNOMED FILIPE Shen, CJ - Dr. Rocky Disla, [facility] 6 16:34:11 3302 Product containin g angiotens in-conver ting enzyme inhibitor (product) medicatio n Not available Not available Not available 02/14/2016 11156 009 SNOMED FILIPE Shen, [place] - Dr. Rocky Disla, [facility] 6 16:34:20 3303 ketamine medicatio n Not available Not available Not available 02/14/2016 6130 RxNorm FILIPE Shen, CJ - Dr. Rocky Disla, [facility] 6 16:34:29 3304 hydrogen peroxide medicatio n Not available Not available Not available 02/14/2016 5499 RxNorm FILIPE Shen, CJ Disla, [facility] 6 16:34:41 Medications Name Sig Start Date Stop Date Status Note LastModified by Organization Details LastModified Time compounde d medicatio n INJECT UNDER THE SKIN 20 UNITS (0.5MG) EVERY 7 DAYS 2024 active Not Available Not Available Not Avai lable compounde d medicatio n INJECT 20 UNITS (0.50 MG) BY SUBCUTAN EOUSLY ROUTE ONCE WEEKLY FOR 5 WEEKS 09/25 completed Not Available Not Available Not Available compounde d medicatio n INJECT UNDER THE SKIN 20 UNITS (0.5MG) EVERY 7 DAYS 10/06 completed Not Available Not Available Not Available [facility] home ida 09/04 completed Not Available Not Available Not Available celecoxib 200 mg capsule TAKE ONE (1) CAPSULE( S) BY MOUTH TWICE A DAY. 05/12 completed Not Available Not Available Not Available amoxicill in 500 mg capsule Take 2 capsules every 8 hours by oral route for 10 days. 06/10 completed Not Available Not Available Not Available desonide 0.05 % topical cream APPLY TO AFFECTED AREA TWICE A DAY FOR 1 TO 2 WEEKS. 12/28 completed Not Available Not Available Not Available metformin 500 mg tablet 1 qam and 2 qpm 10/17 completed made her sick Not Available Not Available Not Available promethaz ine-DM 6.25 mg-15 mg/5 mL oral syrup TAKE FIVE (5) ML(S) BY MOUTH FOUR TIMES A DAY NEEDED. 09/25 completed Not Available Not Available Not Available carvedilo l 6.25 mg tablet TAKE ONE (1) TABLET(S ) BY MOUTH TWICE A DAY. 2024 active Not Available Not Available Not Avai lable prednison e 10 mg tablet TAKE FOUR (4) TABLET(S ) BY MOUTH IN THE MORNING FOR 4 DAYS, THEN 3 TABLETS DAILY FOR 3 DAYS, THEN 2 TABLETS DAILY FOR 2 DAYS, THEN 1 TABLET 12/01 completed Not Available Not Available Not Available ipratropi um 0.5 mg-albute rol 3 mg (2.5 mg base)/3 mL nebulizat ion soln USE ONE (1) VIAL VIA NEBULIZE R TWICE A DAY. 08/24 completed Not Available Not Available Not Available citalopra m 40 mg tablet TAKE ONE AND ONE-HALF (1 AND 1/2) TABLET(S ) BY MOUTH ONCE A DAY. 08/19 completed Not Available Not Available Not Available azithromy refugio 250 mg tablet TAKE 2 TABLETS BY MOUTH ON DAY 1, THEN 1 TABLET DAILY ON DAYS 2 TO 5. 03/30 completed Not Available Not Available Not Available ibuprofen 800 mg tablet TAKE ONE (1) TABLET(S ) BY MOUTH THREE TIMES A DAY. 03/04 completed Not Available Not Available Not Available tizanidin e 4 mg tablet TAKE ONE (1) OR TWO (2) TABLET(S ) BY MOUTH ONCE A DAY AT BEDTIME NEEDED FOR INSOMNIA . 12/01 completed Not Available Not Available Not Available fluconazo le 150 mg tablet TAKE ONE (1) TABLET(S ) BY MOUTH ONE DOSE. 06/24 completed Not Available Not Available Not Available benzonata te 200 mg capsule TAKE ONE (1) CAPSULE( S) BY MOUTH 2 TO 3 TIMES A DAY NEEDED FOR COUGH. 09/25 completed Not Available Not Available Not Available clarithro mycin 500 mg tablet TAKE ONE (1) TABLET(S ) BY MOUTH TWICE A DAY. 12/01 completed Not Available Not Available Not Available hydrocodo ne 5 mg-acetam inophen 325 mg tablet Take 1 tablet every 8 hours by oral route. 08/15 completed prescrib ed by Dr. Salvatore brumfield Not Available Not Available Not Available fluconazo le 200 mg tablet TAKE ONE (1) TABLET(S ) BY MOUTH ONCE NEEDED FOR YEAST INFECTIO N. 07/25 completed Not Available Not Available Not Available meloxicam 15 mg tablet TAKE ONE (1) TABLET(S ) BY MOUTH DAILY NEEDED FOR PAIN. 05/19 completed Not Available Not Available Not Available ondansetr on HCl 4 mg tablet TAKE ONE (1) TABLET(S ) BY MOUTH FOUR TIMES A DAY. 05/01 completed Not Available Not Available Not Available prednison e 20 mg tablet TAKE TWO (2) TABLET(S ) BY MOUTH ONCE A DAY FOR 5 DAYS. 08/19 completed Not Available Not Available Not Available probeneci d 500 mg-colchi cine 0.5 mg tablet TAKE ONE (1) TABLET(S ) BY MOUTH TWICE A DAY. 12/01 completed Not Available Not Available Not Available penicilli n V potassium 500 mg tablet Take 1 tablet every 8 hours by oral route for 10 days. 08/25 completed Not Available Not Available Not Available topiramat e 25 mg tablet TAKE ONE (1) TABLET(S ) BY MOUTH ONCE A DAY AT BEDTIME. 11/19 completed Not Available Not Available Not Available potassium chloride ER 10 mEq tablet,ex tended release TAKE ONE (1) TABLET(S ) BY MOUTH DAILY. 05/19 completed Not Available Not Available Not Available metronida zole 500 mg tablet Take 1 tablet twice a day by oral route for 7 days. 09/25 completed Not Available Not Available Not Available phentermi ne 37.5 mg tablet TAKE ONE (1) TABLET(S ) BY MOUTH ONCE A DAY. 12/28 completed Not Available Not Available Not Available acetamino phen 300 mg-codein e 30 mg tablet TAKE ONE (1) TABLET(S ) BY MOUTH EVERY FOUR HOURS NEEDED FOR PAIN. 11/30 completed Not Available Not Available Not Available amlodipin e 5 mg tablet TAKE ONE (1) TABLET(S ) BY MOUTH ONCE A DAY FOR BLOOD PRESSURE . active Not Available Not Available No t Available ciproflox acin 500 mg tablet Take 1 tablet every 12 hours by oral route for 7 days. 09/25 completed Not Available Not Available Not Available Tamiflu 75 mg capsule Take 1 capsule twice a day by oral route for 5 days. 08/25 completed Not Available Not Available Not Available sulfameth oxazole 800 mg-trimet hoprim 160 mg tablet TAKE ONE (1) TABLET(S ) BY MOUTH EVERY TWELVE HOURS FOR SEVEN DAYS. 05/01 completed Not Available Not Available Not Available omeprazol e 40 mg capsule,d elayed release TAKE ONE (1) CAPSULE( S) BY MOUTH ONCE A DAY. active Not Available Not Available No t Available doxycycli ne monohydra te 100 mg tablet TAKE ONE (1) TABLET(S ) BY MOUTH EVERY TWELVE HOURS. 09/25 completed Not Available Not Available Not Available tramadol 50 mg tablet TAKE ONE (1) TABLET(S ) BY MOUTH TWICE A DAY NEEDED FOR SEVERE PAIN. active Not Available Not Available No t Available triamtere ne 37.5 mg-hydroc hlorothia zide 25 mg capsule TAKE ONE (1) CAPSULE( S) BY MOUTH ONCE A DAY. 12/01 completed Not Available Not Available Not Available ondansetr on 8 mg disintegr ating tablet DISSOLVE ONE (1) TABLET(S ) BY MOUTH EVERY SIX HOURS. 04/27 completed Not Available Not Available Not Available Kenalog 40 mg/mL suspensio n for injection Take 40 mg by injectio n route. 08/15 completed Not Available Not Available Not Available methocarb ellen 750 mg tablet Take 1 tablet 3 times a day by oral route for 7 days. 06/10 completed Not Available Not Available Not Available hyoscyami ne ER 0.375 mg tablet,ex tended release,1 2 hr TAKE ONE (1) TABLET(S ) BY MOUTH EVERY TWELVE HOURS. 05/19 completed Not Available Not Available Not Available dicyclomi ne 20 mg tablet TAKE ONE (1) TABLET(S ) BY MOUTH FOUR TIMES A DAY NEEDED. 05/12 completed Not Available Not Available Not Available meclizine 25 mg tablet Take 1 tablet 3 times a day by oral route for 20 days. 08/15 completed Not Available Not Available Not Available colesevel am 625 mg tablet TAKE ONE (1) TABLET(S ) BY MOUTH THREE TIMES A DAY. 12/01 completed Not Available Not Available Not Available baclofen 10 mg tablet TAKE ONE-HALF (1/2) TABLET(S ) BY MOUTH ONCE A DAY. 07/26 completed Not Available Not Available Not Available benzonata te 100 mg capsule TAKE ONE (1) CAPSULE( S) BY MOUTH EVERY EIGHT HOURS NEEDED FOR COUGH. 05/19 completed Not Available Not Available Not Available doxycycli ne monohydra te 100 mg capsule TAKE ONE (1) CAPSULE( S) BY MOUTH EVERY TWELVE HOURS FOR 7 DAYS. 06/14 completed Not Available Not Available Not Available levothyro xine 50 mcg tablet TAKE ONE (1) TABLET(S ) BY MOUTH ONCE A DAY. 10/31 completed Not Available Not Available Not Available ropinirol e 2 mg tablet TAKE TWO (2) TABLET(S ) BY MOUTH ONCE A DAY AT BEDTIME. 05/12 completed Not Available Not Available Not Available cephalexi n 500 mg capsule TAKE ONE (1) CAPSULE( S) BY MOUTH EVERY SIX HOURS FOR 7 DAYS. 12/28 completed Not Available Not Available Not Available pantopraz ole 40 mg tablet,de layed release TAKE ONE (1) TABLET(S ) BY MOUTH ONCE A DAY. 08/24 completed Not Available Not Available Not Available hyoscyami ne sulfate 0.125 mg tablet TAKE ONE (1) TABLET(S ) BY MOUTH EVERY FOUR TO SIX HOURS NEEDED FOR ABDOMINA L CRAMPING . 05/12 completed Not Available Not Available Not Available cyanocoba cecelia (vit B-12) 1,000 mcg/mL injection solution Inject 1 mL every 2 weeks by intramus cular route. 02/25 completed Not Available Not Available Not Available ropinirol e 0.5 mg tablet TAKE ONE (1) TABLET(S ) BY MOUTH FOUR TIMES A DAY. 10/31 completed Not Available Not Available Not Available nystatin 100,000 unit/gram topical cream APPLY TO THE AFFECTED AREA(S) BY TOPICAL ROUTE 2 TIMES PER DAY 08/15 completed Not Available Not Available Not Available dexametha sone 4 mg tablet TAKE ONE (1) TABLET(S ) BY MOUTH TWICE A DAY FOR 5 DAYS. 06/24 completed Not Available Not Available Not Available orphenadr ine citrate ER 100 mg tablet,ex tended release Take 1 tablet(s ) twice a day by oral route for 14 days. 06/10 completed Not Available Not Available Not Available gabapenti n 300 mg capsule TAKE ONE (1) CAPSULE( S) BY MOUTH THREE TIMES A DAY. 08/24 completed Not Available Not Available Not Available monteluka st 10 mg tablet TAKE ONE (1) TABLET(S ) BY MOUTH ONCE A DAY. active Not Available Not Available No t Available codeine 10 mg-guaife nesin 100 mg/5 mL oral liquid Take 10 mL every 4 hours by oral route as needed. 04/27 completed Not Available Not Available Not Available furosemid e 20 mg tablet TAKE ONE (1) TABLET(S ) BY MOUTH DAILY. 03/30 completed Not Available Not Available Not Available diazepam 10 mg tablet TAKE TWO (2) TABLET(S ) BY MOUTH 2 HOURS PRIOR TO APPOINTM ENT AND TWO TABLETS ONE HOUR BEFORE APPOINTM ENT IF NEEDED. 12/01 completed Not Available Not Available Not Available levofloxa refugio 500 mg tablet TAKE ONE (1) TABLET(S ) BY MOUTH DAILY FOR 7 DAYS. 11/17 completed Not Available Not Available Not Available levofloxa refugio 750 mg tablet TAKE ONE (1) TABLET(S ) BY MOUTH EVERY DAY FOR 7 DAYS. 07/26 completed Not Available Not Available Not Available methylpre dnisolone 4 mg tablets in a dose pack TAKE PER PACKAGE DIRECTIO NS. 09/25 completed Not Available Not Available Not Available albuterol sulfate HFA 90 mcg/actua tion aerosol inhaler INHALE ONE (1) TO 2 PUFFS BY MOUTH EVERY 4 HOURS NEEDED FOR SHORTNES S OF BREATH OR WHEEZE. 08/24 completed Not Available Not Available Not Available Vitamin D2 1,250 mcg (50,000 unit) capsule TAKE ONE (1) CAPSULE( S) BY MOUTH ONCE A WEEK. 11/18 completed dose increase Not Available Not Available Not Available colchicin e 0.6 mg tablet TAKE TWO (2) TABLETS BY MOUTH ONCE. THEN, 1 TABLET 1 HOUR LATER. 11/30 completed Not Available Not Available Not Available propranol ol 20 mg tablet TAKE ONE (1) TABLET(S ) BY MOUTH TWICE A DAY. 12/01 completed Not Available Not Available Not Available ketoconaz ole 2 % topical cream APPLY TO AFFECTED AREA TWICE A DAY FOR 1 TO 2 WEEKS. 12/28 completed Not Available Not Available Not Available oxybutyni n chloride 5 mg tablet TAKE ONE (1) TABLET(S ) BY MOUTH TWICE A DAY FOR 90 DAYS. active Not Available Not Available No t Available ondansetr on 4 mg disintegr ating tablet DISSOLVE ONE (1) TABLET(S ) BY MOUTH THREE TIMES A DAY NEEDED FOR NAUSEA AND VOMITING . 05/19 completed Not Available Not Available Not Available cefdinir 300 mg capsule TAKE ONE (1) CAPSULE( S) BY MOUTH EVERY 12 HOURS FOR 10 DAYS. 02/27 completed Not Available Not Available Not Available fluticaso ne propionat e 50 mcg/actua tion nasal spray,silas pension USE TWO (2) SPRAY(S) INTO EACH NOSTRIL ONCE A DAY. 11/19 completed Not Available Not Available Not Available colestipo l 1 gram tablet TAKE ONE (1) TABLET(S ) BY MOUTH THREE TIMES A DAY. 05/12 completed Not Available Not Available Not Available dicyclomi ne 10 mg capsule TAKE ONE (1) CAPSULE( S) BY MOUTH EVERY SIX HOURS NEEDED. 06/24 completed Not Available Not Available Not Available ipratropi um bromide 21 mcg (0.03 %) nasal spray USE TWO (2) SPRAY(S) INTO EACH NOSTRIL THREE TIMES A DAY. 11/19 completed Not Available Not Available Not Available amoxicill in 875 mg-potass ium clavulana te 125 mg tablet TAKE ONE (1) TABLET(S ) BY MOUTH TWICE A DAY FOR 10 DAYS. 09/25 completed Not Available Not Available Not Available amoxicill in 500 mg-potass ium clavulana te 125 mg tablet TAKE ONE (1) TABLET(S ) BY MOUTH THREE TIMES A DAY FOR SEVEN DAYS. 12/01 completed Not Available Not Available Not Available neomycin- polymyxin -hydrocor t 3.5 mg-10,000 unit/mL-1 % ear drops,silas p INSTILL 4 DROPS INTO AFFECTED EAR(S) BY OTIC ROUTE 3 TIMES PER DAY 11/20 completed Not Available Not Available Not Available Comp-Air Nebulizer Compresso r USE DIRECTED . 08/24 completed Not Available Not Available Not Available azithromy refugio 500 mg tablet TAKE ONE (1) TABLET(S ) BY MOUTH ONCE A DAY FOR 5 DAYS. 11/30 completed Not Available Not Available Not Available cyclobenz aprine 5 mg tablet Take 1 tablet 3 times a day by oral route as needed for 30 days. 2023 active Not Available Not Available Not Avai lable Premarin 0.625 mg/gram vaginal cream Apply small amount seven nights each week. 10/31 completed Not Available Not Available Not Available duloxetin e 60 mg capsule,d elayed release TAKE TWO (2) CAPSULE( S) BY MOUTH ONCE A DAY AT BEDTIME. active Not Available Not Available No t Available eszopiclo ne 2 mg tablet TAKE ONE (1) TABLET(S ) BY MOUTH ONCE A DAY AT BEDTIME. 05/19 completed Not Available Not Available Not Available eszopiclo ne 1 mg tablet Take 1 tablet every day by oral route for 30 days. 10/31 completed Not Available Not Available Not Available pregabali n 50 mg capsule TAKE ONE (1) CAPSULE( S) BY MOUTH TWICE A DAY. 12/01 completed Not Available Not Available Not Available quetiapin e 50 mg tablet TAKE ONE (1) TABLET(S ) BY MOUTH DAILY. 05/12 completed Not Available Not Available Not Available FeroSul 325 mg (65 mg iron) tablet TAKE ONE (1) TABLET(S ) BY MOUTH ONCE A DAY. 12/26 completed Not Available Not Available Not Available Mucinex 1,200 mg tablet, extended release Take 1 tablet twice a day by oral route for 7 days. 05/19 completed Not Available Not Available Not Available Mucinex DM 60 mg-1,200 mg tablet,ex tended release 12 hr Take 1 tablet every 12 hours by oral route as needed for 7 days. 07/25 completed Not Available Not Available Not Available Solu-Medr ol (PF) 125 mg/2 mL solution for injection Take 125 mg by injectio n route. 08/15 completed Not Available Not Available Not Available Gralise 600 mg tablet,ex tended release TAKE 1 TO TWO TABLETS BY MOUTH ONCE DAILY WITH DINNER 12/01 completed Not Available Not Available Not Available Trokendi XR 50 mg capsule, extended release Take 1 capsule every day by oral route. 10/17 completed will increase to 100 mg at the end of this week Not Available Not Available Not Available Trokendi XR 200 mg capsule, extended release TAKE ONE (1) CAPSULE( S) BY MOUTH EVERY DAY. 04/05 completed Not Available Not Available Not Available guaifenes in ER 600 mg tablet, extended release 12 hr Take 1 tablet every 12 hours by oral route for 7 days. 04/05 completed Not Available Not Available Not Available Genvoya 150 mg-150 mg-200 mg-10 mg tablet 08/24 completed Not Available Not Available Not Available Impavido 50 mg capsule 08/24 completed Not Available Not Available Not Available bupropion HCl 150 mg tablet,12 hr sustained -release( smoking deterrent ) Take 1 tablet every day by oral route. 03/14 completed Not Available Not Available Not Available Zenpep 40,000 unit-126, 000 unit-168, 000 unit capsule,d elayed release 08/03 /2021 completed Not Available Not Available Not Available baclofen 5 mg tablet TAKE ONE (1) TABLET(S ) BY MOUTH EVERY DAY. 05/15 completed Not Available Not Available Not Available Flucelvax Quad 60 mcg (15 mcg x 4)/0.5 mL intramusc ular susp IMMUNIZA TION GIVEN 12/01 completed Not Available Not Available Not Available ID NOW COVID-19 Test Kit TEST DIRECTED . 08/24 completed Not Available Not Available Not Available BinaxNOW COVID-19 Ag Self Test kit TEST DIRECTED TODAY 09/04 completed Not Available Not Available Not Available semagluti de (weight loss) 0.25 mg/0.5 mL subcutane ous pen injector pyridoxi ne/sodiu m semaglut jael 25/1 mg/ 1 mL injectio n solution , injectio n 0.25 mL subcutan eously once weekly for 30 days 05/19 completed Not Available Not Available Not Available Paxlovid 300 mg (150 mg x 2)-100 mg tablets in a dose pack TAKE DIRECTED . 07/25 completed Not Available Not Available Not Available Vitals Date Recorded Body height Body mass index (BMI) Body weight Respiratory rate Body temperature Oxygen saturation Oxygen saturation in Arterial blood by Pulse oximetry Heart rate Systolic And Diastolic Provider Name and Address Organization Details Last Updated DateTime 4 165.1 cm 50.4 kg/m2 575880. 49 g 16 /min 96.5 [degF] 96 % 96 % 66 /min 128/76 mm[Hg] Gabriella Disla, [facility] 4 16:12:01 Date Recorded Body height Provider Name an d Address Organization Details Last Updated DateTime 09/25/2024 165.1 cm stephen Disla, [facility] 09/25/2024 15:26:33 Date Recorded Body height Oxygen saturation Oxygen saturation in Arterial blood by Pulse oximetry Heart rate Respiratory rate Body temperature Body mass index (BMI) Body weight Provider Name and Address Organization Details Last Updated DateTime 5 165.1 cm 97 % 97 % 66 /min 14 /min 97 [degF] 55.8 kg/m2 498433. 84 g Gabriella Disla, [facility] 5 17:24:27 Date Recorded Body height Oxygen saturation Oxygen saturation in Arterial blood by Pulse oximetry Heart rate Respiratory rate Body temperature Body mass index (BMI) Body weight Systolic And Diastolic Provider Name and Address Organization Details Last Updated DateTime 4 165.1 cm 98 % 98 % 70 /min 16 /min 97.3 [degF] 52.2 kg/m2 518100. 86 g 136/92 mm[Hg] Gabriella Disla, [facility] 4 16:52:16 Social History Question Answer Notes LastModified by Organizat ion Details LastModified Time Tobacco Smoking Status Never Smoker FILIPE Shen, CJ - Dr. Rocky Disla, [facility] 02/14/2016 16:32:52 What Is Your Level Of Caffeine Consumption? Occasional Information not available 11/20/2018 What Type Of Diet Are You Following? REGULAR Information not available 11/20/2018 Have You Directly Handled Bats, Rodents, Or Primates From Ebola Endemic Areas? No Information not available 11/20/2018 Have You Processed Blood Or Body Fluids From An Ebola Virus Disease Patient Without Appropriate PPE? No Information not available 11/20/2018 Have You Had Household Contact With An Ebola Virus Disease Patient? No Information not available 11/20/2018 Have You Had Direct Contact With A Body In An Ebola-affected Area Without Appropriate PPE? No Information not available 11/20/2018 Have You Had Percutaneous (e.g. Needle Stick) Or Mucous Membrane Exposure To Blood Or Body Fluids From An Ebola Virus Disease Patient? No Information not available 11/20/2018 Have You Had Other Close Contact With An Ebola Virus Disease Patient In Health Care Facilities Or Community Settings? No Information not available 11/20/2018 Do You Reside In Or Have You Traveled To An Area Where Ebola Virus Transmission Is Active? No Information not available 11/20/2018 Hard Of Hearing Or Deaf In One Or Both Ears? No Information not available 11/20/2018 Legally Blind In One Or Both Eyes? No Information no t available 11/20/2018 Live Alone Or With Others? With Others [email or web address] Information not available 02/14/2016 What Was The Date Of Your Most Recent Tobacco Screening? 12/26/2022 Information not available 12/26/2022 Seat Belts Used Routinely Yes Information not available 11/20/2018 Smoke Alarm In Home Yes Information not available 11/20/2018 How Much Tobacco Do You Smoke? No [email or web address] Information not available 02/14/2016 Do You Use Sunscreen Routinely? Yes Information not available 11/20/2018 How Many Years Have You Smoked Tobacco? 0 Information not available 11/14/2017 Sex: Unknown Functional Status Question Answer Note LastModified by Organizat ion Details LastModified Time What is your level of alcohol consumption? Occasional [email or web address] Information not available 02/14/2016 Do you or have you ever used smokeless tobacco? Never used smokeless tobacco Information not available 06/10/2019 Are you currently employed? Yes [email or web address] Information not available 02/14/2016 Are you able to care for yourself? 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 Never used electronic cigarettes Information not available 06/10/2019 What is your exercise level? Occasional Information not available 11/20/2018 Mental Status None recorded. Family History Relationship Description Onset Age of this Age Resolved Age Notes LastModified by Organization Details LastModified Time Father Arthritis [email or web address] Not availab le 03/15/2016 17:10:13 Father Coronary arterioscler osis nbraddock Not available 2015 17:13:21 Father Ulcer nbraddock Not available 11/14/2017 16:53:16 Father Heart disease nbraddock Not available 2015 17:21:06 Father Myocardial infarction nbraddock Not available 03/15 17:23:20 Father Hyperlipidem ia nbraddock Not available 2017 16:53:16 Father Essential hypertension nbraddock Not available 16:53:16 Father Cerebrovascu lar accident nbraddock Not available 17:28:20 Unspecified Relation Asthma cousin s on mother 's side and father 's side [email or web address] Not available 03/15/2016 17:11:06 Brother Dysmorphism nbraddock Not avai lable 11/14/2017 16:53:16 Brother Disorder of eye nbraddock Not available 2017 16:53:16 Brother Hearing disorder nbraddock Not available 2017 16:53:16 Brother Heart disease nbraddock Not available 2015 17:21:06 Brother Heart disease nbraddock Not available 2015 17:21:06 Maternal Grandmother Depressive disorder nbraddock Not available 2015 17:12:45 Maternal Grandmother Epilepsy nbraddock Not available 17:19:50 Maternal Grandmother Heart disease nbraddock Not available 2015 17:21:06 Maternal Grandmother Myocardial infarction nbraddock Not available 03/15 17:23:20 Maternal Grandmother Cerebrovascu lar accident nbraddock Not available 17:28:20 Mother Depressive disorder nbraddock Not available 2015 17:12:45 Mother Heart disease nbraddock Not available 2015 17:21:06 Mother Hyperlipidem ia nbraddock Not available 2017 16:53:16 Mother Essential hypertension nbraddock Not available 16:53:16 Maternal Grandfather Malignant neoplasm of prostate nbraddock Not available 2017 16:53:16 Maternal Grandfather Malignant neoplasm of urinary bladder nbraddock Not available 2017 16:53:16 Maternal Grandfather Heart disease nbraddock Not available 2015 17:21:06 Maternal Grandfather Myocardial infarction nbraddock Not available 03/15 17:23:20 Maternal Grandfather Cerebrovascu lar accident nbraddock Not available 17:28:20 Sister Ulcer nbraddock Not available 11/14/2017 16:53:16 Sister Heart disease nbraddock Not available 2015 17:21:06 Sister Migraine nbraddock Not availabl e 03/15/2016 17:27:02 Paternal Grandfather Heart disease nbraddock Not available 2015 17:21:06 Paternal Grandfather Myocardial infarction nbraddock Not available 03/15 17:23:20 Paternal Grandfather Cerebrovascu lar accident nbraddock Not available 17:28:20 Paternal Grandmother Heart disease nbraddock Not available 2015 17:21:06 Paternal Grandmother Myocardial infarction nbraddock Not available 03/15 17:23:20 Paternal Grandmother Cerebrovascu lar accident nbraddock Not available 17:28:20 Medical History Condition Response Hives or Eczema N Coronary Artery Disease N Other N Gout N High Blood Pressure Y Back trouble Y Blood Diseases N Respiratory Problem - Other N Kidney Stones N Hyperthyroidism N Blood Transfusion Y Urinary Incontinence N Veneral Disease N ADD N Depression N COPD N Prostate Problems N Migraine Headaches Y Sinusitis N Anxiety Disorder N Muscle, Joint, or Bone Problems Y Hemorrhoids Y Obesity Y Vision or Eye Problems N Arthritis Y Polyps N Infertility N IBS N Varicosities N Stroke N Polio N Headaches N Fibromyalgia N other neurological condition N RSV N Kidney Disease N Heart Problems N Menorrhagia N Ear or Hearing Problems N Hospitalizations N Gallstones N Hypogonadism N Low Blood Sugar N Bleeding tendency N Acne N Skin Problems N Eating Disorder N MRSA exposure N Constipation N Bladder Problems N Rheumatic Fever N Tuberculosis N AIDS/HIV N Asthma N Mitral Valve Prolapse N Hepatitis N Neuropathy Y Pulmonary Embolism N Stomach Ulcer N Chronic Ear Infections N Chicken Pox Y Autism Spectrum Disorder (ASD) N Thrombophilias N Hernia Y Menopause N Lung Disease N Hypothyroidism N Glaucoma N Developmental or Behavioral Disorders N Defects or Inherited Disease N Breast Problem N Bipolar N Measles N Difficulty Swallowing N Cancer (type) N Breathing Problems N Anesthesia Complications N Skin Ulcer N Other Sleep Problem N Infectious Owen N Meniere's disease N Shingles N ADHD N Endometriosis N High Cholesterol N Liver Disease N Allergies/Hayfever Y Mumps N Thyroid Problems N GI Problems N Allergic Reaction to Medications N Anemia Y Diabetes (type) N Mental Illness N Ovarian Cancer N Bedwetting N Seizures/Epilepsy N Congestive Heart Failure (CHF) N Insomnia N Eczema N Chronic Pain N Low Blood Pressure N Diverticulitis N Abuse/Domestic Violence N Chronic Back Pain N Epilepsy N Reflux/GERD N Sleep Apnea N Plasma transfusion N Heart Disease N Bronchitis Y Pre-Eclampsia N Osteoporosis N Gynecological HistoryNo gynecological history recorded. Obstetrics History GPAL:G 0 P 0 0 0 0 Immunizations Vaccine Type Date Status Note Provider Conrad e and Address Organization Details Recorded Time SARS-COV-2 (COVID-19) vaccine, UNSPECIFIED 1 completed stephen gordon, [place] - Dr. Rocky Disla, [facility] 02/02/2021 10:04:00 SARS-COV-2 (COVID-19) vaccine, UNSPECIFIED 1 completed stephen gordon, [place] - Dr. Rocky Disla, [facility] 02/02/2021 10:04:07 Influenza, split virus, quadrivalent, preservative 1 completed Tamara gordon, [place] - Dr. Rocky Disla, [facility] 03/28/2021 15:27:15 Influenza, split virus, quadrivalent, PF 6 completed Not Available [facility] 06/14/2019 02:21:12 Past Encounters Encounter ID Performer Location Encounter Start Date Encounter Closed Date Diagnosis/Indication Diagnosis SNOMED-CT Code Diagnosis ICD10 Code Diagnosis Note [id number] RONAL Davila Main Office [address] [address] 02/14/2016 15:50:18 02/14/2016 18:50:10 Nausea and vomiting 35502606 R11.2 Begin clear liquid diet for 24 hours. Slowly resume soft foods. RTC in 1 week. Obese 003217796 E66.9 Advised to lose weight. Obtain labs and follow up in 1 week for results. Goal is steady weight loss with increased physical activity and improved dietary intake. Discussed weight loss surgery. [id number] RONAL Davila Main Office 2[address] [facility] [address] [place] [address] 03/15/2016 16:49:26 03/20/2016 11:07:11 Gouty arthropathy 388234128 M10.09 Continue probenecid 500 mg - colchicine 0.5 mg tablet twice daily by mouth. Iron defic iency anemia 04360952 D50.[address] Cantrell. Patient had an infusion in june of this year for anemia. Hypothyroidism 66041581 E03.9 Stable. Continue levothyrox ine 50 mcg by mouth on an empty stomach each morning. High hemog lobin A1c level 820575911 R73.09 Prescribe metformin 500 mg by mouth increasing weekly to 2,000 units daily. Gastroesop hageal reflux disease 588411055 K21.9 Continue omeprazole . Elevated hed of bed 4 inches and do not eat or drink 2 hours before reclining. Obese 275240928 E66.9 Advised to lose weight. Goal is steady weight loss with increased physical activity and improved dietary intake. Patient understand s weight has negative impact on her health. Administra tion of influenza vaccine 64680750 Z23 [place]. [id number] RONAL Davila Main Office [address] [address] 03/29/2016 11:15:03 03/29/2016 13:01:35 Community acquired pneumonia 626726262 J18.9 Prescribe azithromyc in 250 mg and medrol 4mg dose pack. Cough 18298642 R05 Prescribe guaifenesi n ER 600 mg tablet ER every 12 hours. Obese 116981017 E66.9 Advised to lose weight. Current weight loss is 10 pounds. Goal is steady weight loss with increased physical activity and improved dietary intake. Patient understand s weight has negative impact on her health. [id number] RONAL Davila Main Office [address] [address] 07/11/2016 15:24:49 07/12/2016 10:56:26 Iron deficiency anemia 66393319 D50.9 Obtain labs today. RTC in 3 days. Otitis externa 2217397 H 62.41 Prescribe neomycin-p olymyxin-h ydrocort 3.5 mg. Hypothyroidism 57701436 E03.9 Non-compli ant on taking medication . Obtain labs. Sleep disorder 31958739 G47.9 Obtain sleep study. Prescribe eszopiclon e 1 mg 1 hour before sleep. Obese 796957259 E66.9 Advised to lose weight. Goal is steady weight loss with increased physical activity and improved dietary intake. Patient understand s weight has negative impact on her health. Pain doctor has given her phentermin e. [id number] RONAL Davila Main Office [address] [facility] [address] [place] [address] 07/14/2016 09:44:05 07/17/2016 12:51:16 Iron deficiency anemia 76401189 D50.9 Improved. Dehydration 52196644 E86 .0 Discussed labs and need for increased hydration. Gave her a note for work to allow morning, lunch, and afternoon water breaks. Obese 055717975 E66.9 Advised to lose weight. Goal is steady weight loss with increased physical activity and improved dietary intake. Patient understand s weight has negative impact on her health. Pain doctor has given her phentermin e. [id number] RONAL Davila Main Office [address] [address] 10/12/2016 16:21:10 10/14/2016 19:22:50 Cough 06779876 R05 Continue guaifenesi n ER 600 mg tablet ER every 12 hours. Wheezing 33910635 R06.2 Administer ed DuoNeb nebulizer treatment with improved breath sounds. Prescribe nebulizer and ipra tropium-al buterol for nebulizati on. Administer solumedrol 125 mg and kenalog 40 mg IM. RTC on October 16 for recheck. Community acquired pneumonia 985302852 J18.9 Prescribe azithromyc in 250 mg and levofloxac in 500 mg Candidiasis of skin 4988 3006 B37.2 Apply nystatin 100,000 unit/gram topical cream twice daily after showering with soap and water. Dry skin well with blow dryer and keep clean, dry, cotton fabric between skin in abdominal apron fold. Obese 822930827 E66.9 Advised to lose weight.She has lost about 40 pounds. Goal is steady weight loss with increased physical activity and improved dietary intake. Patient understand s weight has negative impact on her health. Pain doctor has given her phentermin e. [id number] RONAL Davila Main Office [address] [facility],[address] [address] 10/17/2016 15:47:14 10/17/2016 23:03:35 Community acquired pneumonia 178348235 J18.9 Improved. Complete levofloxac in 500 mg. Notify office if symptoms return. Obese 041309426 E66.9 Advised to lose weight. She has lost about 40 pounds. Goal is steady weight loss with increased physical activity and improved dietary intake. Patient understand s weight has negative impact on her health. Pain doctor has given her phentermin e and trokendi XR 200 mg. She is doing well and I will refill these. [id number] RONAL Davila Main Office [address] [address] 02/07/2017 16:15:13 02/08/2017 13:05:19 Urethritis 02539045 N34.2 Dipstick negative. Obtain UA and C&S as indicated. Prescribe premarin 0.625 mg/gram vaginal cream. Increased frequency of urination 617969618 R35.0 Prescribe oxybu tynin chloride 5 mg tablet daily. Restless legs 32729419 G 25.81 Prescribe ropinirole 2 mg tablet twice daily by mouth. [id number] RONAL Davila Main Office [address] [address] 04/05/2017 10:46:57 04/06/2017 10:54:38 Acute pharyngitis 676231879 J02.9 Prescribe amoxicilli n 500 mg tablet twice daily for 7 days. Candidiasis of skin 4988 3006 B37.2 Apply nystatin 100,000 unit/gram topical cream twice daily after showering with soap and water. Dry skin well with blow dryer and keep clean, dry, cotton fabric between skin in abdominal apron fold. Restless legs 75448562 G 25.81 Prescribe ropinirole 2 mg tablet. Take 2 tablets one hour before bedtime. [id number] RONAL Davila Main Office [address] [address] 06/06/2017 15:27:47 06/09/2017 16:00:22 Sinusitis 47906517 J32.9 Begin daily oral antihistam ine such as claritin or zyrtec and nasal spray such as flonase or nasacort. Use saline nasal spray throughout the day. Perimenopa usal disorder 088613494 N95.9 Has had 2 light menses in the last two months after 10 months of no menses. Discussion included details of menopause. Hypothyroidism 92499035 E03.9 Discussed medication s and she will continue levothyrox ine. [id number] BEBETO Davila-Soraida Main Office [address] [facility],[address] [place] [address] 10/31/2017 10:44:45 11/01/2017 12:29:49 Adult health examination 517304344 Z00.00 Morbidly obese 52 year old female here today for annual exam including PAP and breast exam. Patient reports mammogram was clear in July of 2017. We will attempt to get records from [facility]. Hyperlipid emia screening 001833644 Z13.220 Obtain fasting labs today. Candidiasis of skin 4988 3006 B37.2 Apply nystatin 100,000 unit/gram topical cream twice daily after showering with soap and water. Dry skin well with blow dryer and keep clean, dry, cotton fabric between skin in abdominal apron fold. Gynecologi c examination 43979049 Z01.419 No abnormalit ies seen on pelvic exam. Obese 277257292 E66.9 Advised to lose weight. Goal is steady weight loss with increased physical activity and improved dietary intake. Patient understand s weight has negative impact on her health. In the past pain doctor has given her phentermin e and trokendi XR 200 mg. Due to the cost of trokendi XR she has not been taking. Today we will prescribe Topamax 25 mg tablet. She will start 25 mg daily qhs x 1 week, then may increase by 25 mg/day each week with max dosing at 100 mg daily. She will RTC in 10 days. If the dose is effective, a new prescripti on will be called into the pharmacy for 100 mg tablets. Gouty arthropathy 465300 008 M10.09 Stable. Continue probenecid 500 mg-colchic ine 0.5 mg. Restless legs 58442941 G 25.81 Stable. Continue ropinirole 2 mg tablet. Take 2 tablets one hour before bedtime. Benign ess ential hypertension 3935193 I10 Stable. Continue carvedilol 6.25 mg and triamteren e 37.5 mg-hydroch lorothiazi de 25 mg. Mixed anxi ety and depressive disorder 646720534 F41.8 Stable. Continue quetiapine 50 mg and citalopram 40 mg daily. Seasonal a llergic rhinitis 870528439 J30.2 Stable. Continue montelukas t 10 mg daily. Instructed to use oral histamine such as zyrtec or claritin. Daily flonase or nasocort. Gastroesop hageal reflux disease 079785064 K21.9 Continue omeprazole . Elevated hed of bed 4 inches and do not eat or drink 2 hours before reclining. Increased frequency of urination 742295214 R35.0 Increase oxybutynin chloride from 10 mg to 20 mg daily. If symptoms persist with increased dose, will refer to urology. [id number] RONAL Davila Main Office [address] [facility] [address] [place] [address] 11/14/2017 15:57:04 11/15/2017 15:30:39 Acute ethmoidal sinusitis 31094340 J01.20 Administer solumedrol 125 mg and kenalog 40 mg IM. Prescribe azithromyc in 250 mg and medrol 4 mg dose pack. Begin daily oral antihistam ine such as claritin or zyrtec and saline nasal spray. Vitamin D deficiency 347 64601 E55.9 Prescribe ergocalcif roberto 50,000 units weekly for 12 weeks. RTC in 6 months for labs and OV. Benign ess ential hypertension 2147216 I10 Stable. Continue carvedilol 6.25 mg and triamteren e 37.5 mg-hydroch lorothiazi de 25 mg. High hemog lobin A1c level 003565058 R73.09 Improved. Continue to work on improving diet and increasing exercise. RTC in 6 months for labs and OV. Obese 230084144 E66.9 Weight loss since 10/31/2017 visit is 10 pounds. Advised to continue weight loss. Goal is steady weight loss with increased physical activity and improved dietary intake. Patient understand s weight has negative impact on her health. Continue Topamax 25 mg tablet, taking 2 tablets daily (50 mg). She may increase by 25 mg/day each week with max dosing at 100 mg daily. [id number] Rocky Disla DO Main Office [address] [facility],[address] [place] [address] 04/08/2018 14:47:46 04/09/2018 11:29:05 Nausea and vomiting 52024942 R11.2 Begin clear liquid diet for 24 hours. Slowly resume soft foods. Prescribe zofran 8 mg. Myalgia/my ositis - multiple 084722780 M79.10 Obese 021337123 E66.9 Weight loss since 10/31/2017 visit is 10 pounds. Advised to continue weight loss. Goal is steady weight loss with increased physical activity and improved dietary intake. Patient understand s weight has negative impact on her health. Continue Topamax 25 mg tablet, taking 2 tablets daily (50 mg). She may increase by 25 mg/day each week with max dosing at 100 mg daily. [id number] Rocky Disla DO Main Office [address] [facility] [address] [place] [address] 08/06/2018 17:08:11 08/07/2018 13:18:34 Acute sinusitis 63577791 J01.90 Begin daily oral antihistam ine such as claritin or zyrtec and nasal spray such as nasacort or flonase. Use saline nose spray frequently to rinse nasal passages. Knee pain 87089496 M25.5 69 Improving. No treatment at this time. Fatigue 01689136 R53.83 Benign ess ential hypertension 6549035 I10 Stable. Continue carvedilol 6.25 mg and triamteren e 37.5 mg-hydroch lorothiazi de 25 mg. Hypothyroidism 36993621 E03.9 Discussed medication s and she will continue levothyrox ine. [id number] Rocky Disla DO Main Office [address] [facility] [address] [place] [address] 08/15/2018 16:48:42 08/16/2018 11:33:33 Benign essential hypertension 5910958 I10 Continue to monitor and record BP. Report readings greater than 130/80 to clinic. RTC in 3 months for labs and OV. Vitamin D deficiency 347 79638 E55.9 Prescribe Vitamin D 50,000 IU 1 cap x 12 weeks. RTC in 3 months for labs and OV if necessary. High hemog lobin A1c level 432102076 R73.09 Normal. Mixed anxi ety and depressive disorder 622553291 F41.8 Stable. Continue current medication . Acute sinusitis 91962559 J01.90 Prescribe z-pack and medrol dose pack. Encouraged to use OTC antihistam sandra such as claritin or zyrtec. Seasonal a llergic rhinitis 283930094 J30.2 Continue montelukas t 10 mg daily. Gastroesop hageal reflux disease 947646881 K21.9 Stable. Re-fill medication today. Increased frequency of urination 314241257 R35.0 Stable. Re-fill medication today. Iron defic iency anemia 93968445 D50.9 Begin Ferrous sulfate 325 mg TID. She understand s this may cause GI upset, and states she has been on this medication in the past. Advised her to take an OTC vitamin C with Iron supplement . Supplies sent home with her today to check stool guiac. She will return this sample TREASURE. She would like to have another colonoscop y, but discussed her previous one being a couple of years ago without the need for another on for at least a few years. Will discuss more at length when we are able to get test result back. RTC in 3 months for labs. Morbid obesity 627825273 E66.01 Restless legs 89053454 G 25.81 Otitis externa 5057010 H 62.41 Prescribe neomycin-p olymyxin-h ydrocort 3.5 mg. Perimenopa usal disorder 465278296 N95.9 Gouty arthropathy 757265 008 M10.09 [id number] Rocky Disla DO Main Office [address] [facility],[address] [place] [address] 09/20/2018 10:49:42 09/23/2018 10:39:19 Right upper quadrant pain 762512786 R10.11 UA unremarkab le. We discussed her recent lab results that were performed in July, specifical ly her liver functions and kidney functions, along with anemia. Send patient for US. Will call her when results are received. She knows when to seek emergency care if needed. Verbalizes an understand ing. Iron defic iency anemia 27082818 D50.9 Patient requested to see Dr. Leon again. She HAS NOT been taking prescribed iron supplement ation. I have encouraged her to pick up worker and take the medication as prescribed by Jareka, BUILDING WRECKER from previous visit. Will send referral to Dr. Leon now. Benign ess ential hypertension 8729968 I10 Increased in office. I have encouraged patient to monitor blood pressure periodical ly, log, and bring results with her at follow up visits. Will adjust medication s as needed. [id number] Rocky Disla DO Main Office [address] [facility],[address] [place] [address] 11/20/2018 15:53:17 11/21/2018 15:38:41 Spasm 81296246 R25.2 Prescribe methocarba mol 750 mg 1 tablet TID x 7 days. Spasms began last Sunday and were so severe she sought emergency care. Labs that were done during this timer were normal, including all electrolyt es. She was prescribed flexeril and has had no relief. Currently while in office she is not having any cramps, but states it happens out of no where . No obvious swelling or redness to left calf or left shoulder. Encouraged and demonstrat ed stretching techniques . 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 Encouraged to rest affected areas when possible. 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 Morbid obesity 982759414 E66.01 During today's visit she has also requested a refill on phentermin e and topamax. I have explained to her these medication s will not be re-filled until she gets fasting labs done. She states she will schedule labs prior to leaving. Iron defic iency anemia 46155395 D50.9 Obtain fasting labs and RTC within the next 1-2 weeks. High hemog lobin A1c level 689911508 R73.09 Obtain hemoglobin A1C Hypothyroidism 90314268 E03.9 Obtain labs and RTC for OV Vitamin D deficiency 347 07105 E55.9 Prescribe Vitamin D 50,000 IU 1 cap x 12 weeks. RTC in 3 months for labs and OV if necessary. Gouty arthropathy 442595 008 M10.09 Obtain uric acid level at next scheduled lab appointmen t Benign ess ential hypertension 6388100 I10 Continue to monitor and record BP. Report readings greater than 130/80 to clinic. RTC in 3 months for labs and OV. [id number] Rocky Disla, DO Main Office [address] [facility] [address] [place] [address] 01/10/2019 11:48:32 01/13/2019 12:39:10 Acute sinusitis 58453514 J01.90 See treatment # 1. Acute pharyngitis 714334 003 J02.9 Strep test + See treatment # 3. Streptococ santa tonsillitis 90891878 J03.00 Prescribe amoxicilli n 500 mg, take 2 capsules every 8 hours x 10 days. She is educated on hand hygiene to help reduce the risk of transmitti ng bacteria. Work note provided, she may return on Sunday. Educated on throwing away toothbrush es, or anything else that touches mouth and cannot be washed thoroughly . Generalize d acute body pains 488796122 R52 Flu test - [id number] Rocky Disla, DO Main Office [address] [facility] [address] [place] [address] 06/10/2019 10:01:40 06/11/2019 14:53:41 Fever 779785784 R50.9 Muscle pain 70752352 M79 .10 Nausea and vomiting 1693 2000 R11.2 Zofran 8 mg provided in clinic with relief. Influenza 0955088 J11.1 Sore throat 218501226 J0 2.9 Streptococ santa sore throat 41417440 J02.0 [id number] Rocky Disla, DO Main Office [address] [facility] [address] [place] [address] 08/26/2019 16:38:11 08/27/2019 12:40:37 Dyspnea 984706760 R06.00 She was recently seen by Dr. Mayer 2 weeks ago for bronchitis and prescribe prednisone and clarithrom ycin, which she completed. She had a slight improvemen t for a few days, then about 8 days ago felt she was not improving. She last used her inhaler yesterday because it makes her jittery. 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 She was unable to carry on conversati on due to cough, SOB at rest, and chest tightness. She used inhaler while we were together on telemedici ne visit. She is a possible COVID-19 infection patient and works at a daycare. She worked today. Signs and symptoms discussed with patient. As she was being educated to self-isola te in a room at home away from others they live with. Instructed patient to wear a mask (if available) in the presence of others, she began to experience worsening of her respirator y distress with difficulty breathing and was experienci ng chest and back pain. She was advised to call EMS. [facility] ED notified. Report given to Jeffrey. Cough 18940544 R05 Respirator y tract congestion and cough 277796927 R05 Diarrhea 36373209 R19.7 Fever 111971734 R50.9 [id number] Rocky Disla DO Main Office [address] [facility] [address] [place] [address] 09/17/2019 10:50:20 09/18/2019 16:08:36 Viral upper respiratory tract infection 499259749 J06.9 Resolved. She was able to RTW on 09/16/2019. We will email her a work release. Feeling nervous 41077726 4 R45.0 We discussed taking propranolo l 20 mg BID. She would like to try this and will report medication effectiven ess to clinic in 1 week. [id number] Rocky Disla, Main Office [address] [facility],[address] [address] 12/02/2019 15:28:33 12/05/2019 21:21:19 Irritable bowel syndrome 59785291 K58.9 Best explains the patients symptoms. We discussed further treatment and follow up. Decided to try dicyclomin e as needed. Will modify diet as directed. RTC in 7-10 days if not improving with the use of dicyclomin e. Send to GI if needed. Exposure t o SARS-CoV-2 220550025 Z20.828 Patient feels she was exposed to the COVID virus 1-2 months ago. Would like to have the IGG test performed. Skin tag 528720447 L91.8 Removed. Patient tolerated well. She has other area's that could be removed but she refuses for now. Benign ess ential hypertension 6858933 I10 Had a lengthy discussion with patient about abruptly stopping medication s and that this should not be done without consulting with the office first. She verbalizes an understand ing and states she will begin taking her Carvedilol again. Monitor BP twice a day, log, and bring results in at 2 weeks. Will proceed accordingl y. Aware of red flag symptoms that warrant immediate medical attention. Avoid salt. [id number] Rocky Disla, DO Main Office [address] [facility] [address] [place] [address] 01/19/2020 10:33:35 01/20/2020 11:34:17 Abdominal pain 54778459 R10.9 After lengthy discussion with Bindu, I think she would benefit from having a CT scan of her abdomen and pelvis to assess for any other issues, like mass, or diverticul ar disease. She agree's with this plan of care and will have the CT performed at [facility]. I will call her when her results are received. She is aware of red flag symptoms that warrant immediate medical attention. Benign ess ential hypertension 8562960 I10 I had Bindu check her BP while on visit with a result of 141/80. Continue prescribed medication s. Monitor BP twice daily, log, and bring results to office at follow up visits. Avoid excessive salt intake. Severe obesity 342969980 1 9104 E66.01 See note #1. If CT normal, I will discuss a referral to general surgery who specialize s in bariatric surgery to consider options for weight loss. Body mass index 40+ - severely obese 296705415 Z68.44 See note #3. [id number] Rocky Disla, DO Main Office [address] [facility] [address] [place] [address] 03/23/2020 11:58:20 03/24/2020 22:31:32 Acute bronchitis 11167292 J20.9 Start Azithromyc in and Prednisone as prescribed . Use ProAir inhaler every 4-6 hours as needed for wheezing (she has plenty of this at home). Monitor for red flag symptoms as discussed and seek emergency care immediatle y if these occur. RTC in 5-7 days if not improving. Cough 55290889 R05 See note #1. May use cough syrup every 4 hours as needed. Take with caution as it can cause drowsiness . Cover mouth when coughing and wash hands frequently . [id number] Rocky Disla, DO Main Office [address] [facility] [address] [place] [address] 05/12/2020 15:24:19 05/13/2020 15:05:11 Sialoadenitis 66934120 K11.20 Start Cephalexin as prescribed . I encouraged her to try sugar free hard candies to increase salivary flow. Also, perform parotid massage as directed. May use Tylenol or Motrin every 4-6 hours as needed for pain. RTC in 7-10 days if no improvemen t. Candidiasis of vagina 72 333978 B37.3 No active deanna, however, she reports that she always gets a yeast infection when I take antibiotic s. Will send in fluconazol e for patient to have on hand in case she needs this. Chronic ki dney disease stage 3 148024097 N18.30 Pain management referred patient to us to discuss her Gfr. We have discussed this in the past and have diagnosed her with CKD III. Her Gfr has been stable in the 50's for 5 years. Her Gfr on lab work from pain management is 56. We discussed substances to avoid and maintainin g appropriat e hydration to preserve current kidney functions. She verbalizes an understand ing. Discussed referring to Nephrology and patient refuses for now. Will discuss again at follow up visits. [id number] Rocky Disla, DO Main Office [address] [facility] [address] [place] [address] 12/28/2020 16:44:15 12/29/2020 18:30:45 Abdominal pain 58634070 R10.9 See # 2 below. Diverticul itis of colon 875055195 K57.32 She will begin 24 hour liquid diet followed by 24 hour soft diet. She will resume regular diet on day three as symptoms allow. Prescribe cipro 500 mg and metronidaz ole 500 mg. Candidiasis of vagina 72 994431 B37.3 Chronic ki dney disease stage 3 633555712 N18.30 She inquired about having Sebastian's disease. We agreed to obtain labs with her labs in April. High hemog lobin A1c level 707893051 R73.09 Improved. Continue to work on improving diet and increasing exercise. RTC in 6 months for labs and OV. Gouty arthropathy 087100 008 M10.09 Stable. Continue probenecid 500 mg-colchic ine 0.5 mg. Iron defic iency anemia 07075364 D50.9 Improved. Vitamin D deficiency 347 19353 E55.9 Prescribe ergocalcif roberto 50,000 units weekly for 12 weeks. RTC in April for labs and OV. Benign ess ential hypertension 9190955 I10 Stable. Continue carvedilol 6.25 mg and triamteren e 37.5 mg-hydroch lorothiazi de 25 mg. 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 [address] [place] [address] 02/02/2021 10:20:50 02/04/2021 14:22:22 Exposure to SARS-CoV-2 729555833 Z20.822 Signs and symptoms discussed with patient. Patient educated to self-isola te in a room at home away from others they live with. Instructed patient to wear a mask (if available) in the presence of others. Patient advised not to leave house for any reason, other than to receive emergency medical care after calling EMS or ED of the medical facility to allow for proper PPE and isolation. Self-treat ment discussed included Tylenol for fever, pain, or myalgia; cough and cold medication s for symptoms. Patient is to check temperatur e daily and monitor for symptoms of respirator y distress. Patient is to check in daily with our clinic by phone with symptoms.N ature of disease to cause severe respirator y distress day 01/03 discussed. Fever 102613152 R50.9 Headache 30742600 R51.9 Respirator y tract congestion and cough 641735370 R05 Pain in throat 365919611 R07.0 [id number] Rocky Disla DO Main Office [address] [facility] [address] [place] [address] 06/09/2021 12:01:41 06/13/2021 14:19:38 Streptococcal sore throat 69295339 J02.0 Start Augmentin as prescribed . Discussed ways to reduce the risk of recurrent strep infections . May take Tylenol 1000 mg every 6 hours as needed for pain. RTC in 7 to 10 days if not improving. Checking COVID PCR, remain in quarantine until further directions are provided. Gout 74883542 M10.9 Start Colchicine as prescribed . Discussed ways to reduce the risk of gout flares. Exposure t o SARS-CoV-2 106993598 Z20.828 Symptom onset was 06/07/2021 . 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 Check COVID PCR. Remain in quarantine until results are received and further directions are provided. Aware of when to seek emergency care if needed. Pain in throat 545078861 R07.0 Strep positive. See note #1. [id number] Rocky Disla DO Main Office [address] [address] 06/24/2021 10:17:41 06/28/2021 14:07:09 Cough 28205189 R05.9 Pt has persistent cough will start mucinex DM. Pt reports positive rapid home test on sunday will send PCR Acute bronchitis 0101574 2 J20.9 Pt has failed a course of augmentin and has rebound symptoms. Will treat aggressive ly. Pt instructed on Red Flag Signs and when to seek urgent care. [id number] Rocky Disla DO Main Office [address] [facility] [address] [place] [address] 07/26/2021 15:09:04 07/27/2021 14:58:18 Respiratory crackles 40451311 R09.89 Discussed with patient. Send for 2V CXR. I will call when her results are received. [id number] Rocky Disla DO Main Office [address] [facility] [address] [place] [address] 08/19/2021 11:15:04 08/22/2021 12:59:12 Cough 60664125 R05.9 Patient has a 2 to 3-week history of cough and congestion . Patient was sent to the [facility] for x-ray and when the patient got there the patient checked into the ER. The patient reports that she had pneumonia no evidence of that in her current file. Patient is very anxious about having pneumonia. Although exam findings or minimal will order x-ray to rule out pneumonia. Will follow the patient with results. Allergy 276435577 J30.2 Patient has exam findings and symptoms consistent of allergies. Discussed things the patient can do over-the-c ounter that will help with the symptoms. Discussed with the patient's avoidance of triggers and trying to determine what those triggers are. Generalize d anxiety disorder 60882609 F41.1 Lengthy discussion with the patient regarding her anxiety and current symptoms. Discussed things that she can do at home to help with her anxiety and reduce her stress. Patient's THUY 7 score today is 17 and PHQ 9 is 17. Patient is nonsuicida l. Discussed patient's current medication . She is not taking 1-1/2 of the citalopram as prescribed . She is only taking 1. She reports that she feels like that her anxiety medication is not helping as much as it once did. We will stop the citalopram and start duloxetine . Discussed with the patient blackbox warnings and red flag signs and symptoms and when to seek emergent care. Patient has a good understand ing all questions answered. Greater than 25 minutes spent discussing planning and educating patient. Edema of l ower extremity 021154265 R60.0 Patient has edema in lower extremitie s mild 1+. Patient wants referral to cardiology . Will refer. Benign ess ential hypertension 5144864 I10 Patient has a history of hypertensi on. Today she is more anxious and her blood pressure is 153/80. Based on patient's anxiety the like that this may be whitecoat syndrome. Patient has a planned visit with Richard on 08/24/21 we will hold on adding lisinopril at this time. [id number] Rocky Disla, Main Office [address] [facility],[address] [place] [address] 08/24/2021 10:16:16 08/25/2021 14:23:03 Benign essential hypertension 7128500 I10 Stable. Continue carvedilol 6.25 mg and triamteren e 37.5 mg-hydroch lorothiazi de 25 mg. Obtain fasting labs. Chronic ki dney disease stage 3 794010603 N18.30 Obtain labs today Gouty arthropathy 470942 008 M10.09 Stable. Continue probenecid 500 mg-colchic ine 0.5 mg. High hemog lobin A1c level 164500339 R73.09 Obtain fasting labs. Hypothyroidism 81917787 E03.9 Discussed medication s and she will continue levothyrox ine. Obtain fasting labs. Iron defic iency anemia 37193214 D50.9 Obtain fasting labs. Vitamin D deficiency 347 19004 E55.9 Obtain fasting labs. Adult heal th examination 451915784 Z00.00 Morbidly obese 56 year old female here today for annual. Hyperlipid emia screening 616251559 Z13.220 Obtain fasting labs today. Screening mammography of bilateral breasts 7009238268 43810 Z12.31 Screening for osteoporosis 596914267 Z13.820 Gastroesop hageal reflux disease 032598501 K21.9 Continue omeprazole . Elevated head of bed 4 inches and do not eat or drink 2 hours before reclining. Lumbago with sciatica 20 3614927 M54.42 Spasm 00756025 R25.2 Seasonal a llergic rhinitis 683050795 J30.2 Stable. Continue montelukas t 10 mg daily. Instructed to use oral histamine such as zyrtec or claritin. Daily flonase or nasocort. Muscle pain 13788908 M79 .10 Nocturnal sleep-related eating disorder 165581890 F51.3 [id number] Rocky Disla, Main Office [address] [facility],[address] [place] [address] 11/30/2021 15:05:05 12/02/2021 21:55:56 Benign essential hypertension 9425841 I10 Elevated. Discussed BP goals for her age and ways to improve through diet and exercise. She reports to have been under an increased amount of stress and she feels this is why her BP is elevated. We discussed ways to de-escalat e from daily stress. I would like for her to monitor her BP's twice daily, log, and follow up in our office in 2 to 3 weeks. We will proceed accordingl y. Aware of when to seek emergency care if needed. History of palpitations 992409839 Z86.79 See note #2. Intermitte nt palpitations 497459493 R00.2 Per patient, this has been long-stand ing but has seem to have gotten worse over the last 1 to 2 months due to increased life stressors. I recommende d she be seen in the emergency room today due to recent symptoms to have a cardiac rule out performed. She refused, stating, I'm not going to go right now. She is aware of the potential complicati ons associated with untreated problems of the CV system. She is alert and oriented x4 and is able to make her own decisions regarding her health care. She is aware of acute symptoms that warrant immediate medical attention and care from the emergency room setting. She has agreed to have a holter monitor placed by cardiology . She has refused, in the past, an echocardio gram, stating, I didn't need it. I recommende d she see cardiology again and ask about having echo and possible stress testing performed. She verbalizes an understand ing. Anxiety 81337996 F41.9 She has been under increased stress due to family problems. I recommende d we focus on helping alleviate some of her anxiety with short term medication s. She refuses. I strongly encouraged her to seek a counselor and have provided her with a list of local counselors . She refuses this for now as well. I encouraged her to notify our office if she has any further questions or concerns on ways to help her improve her anxiety [id number] Rocky Disla DO Main Office [address] [facility] [address] [place] [address] 02/16/2022 08:48:50 02/17/2022 12:10:09 Cough 62670278 R05.9 Patient has symptoms and exam findings of upper respirator y tract infection will screen. 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 Streptococ santa sore throat 30808621 J02.0 Patient has strep throat Will start treatment discussed with patient things that she can do at home to help with symptoms. Patient has good understand ing. Body mass index 40+ - severely obese 066870472 Z68.44 Lengthy discussion with the patient regarding her weight. Discussed things that she can do at home to help with weight loss. Greater than 25 minutes spent discussing educating and plan of care with patient. [id number] Rocky Disla DO Main Office [address] [facility] [address] [place] [address] 03/30/2022 09:42:24 03/30/2022 12:56:20 Acute cystitis 68385374 N30.01 Insomnia 613911298 G47.0 0 discussed eliminatin g caffeine in the evenings, good sleep hygiene -when time for bed turn off devices. RTC 2 weeks for follow up and check to see if mood improves with better sleep. [id number] Rocky Disla, DO Main Office [address] [address] 05/01/2022 15:20:48 05/02/2022 18:35:50 Renewal of prescription 028618978 Z76.0 Benign ess ential hypertension 4800277 I10 Stable. Continue carvedilol 6.25 mg and triamteren e 37.5 mg-hydroch lorothiazi de 25 mg. Obtain fasting labs. Generalize d anxiety disorder 56270020 F41.1 Vitamin D deficiency 347 83831 E55.9 Obtain fasting labs. Insomnia 284758375 G47.0 0 Seasonal a llergic rhinitis 422691361 J30.2 Stable. Continue montelukas t 10 mg daily. Instructed to use oral histamine such as zyrtec or claritin. Daily flonase or nasocort. Gastroesop hageal reflux disease 565752259 K21.9 Continue omeprazole . Elevated head of bed 4 inches and do not eat or drink 2 hours before reclining. Fatigue 06419204 R53.83 Diabetes m ellitus screening 396039352 Z13.1 Iron defic iency anemia 70908193 D50.9 Obtain fasting labs. Myalgia/my ositis - multiple 404459641 M79.10 Muscle pain 16694014 M79 .10 Nocturnal sleep-related eating disorder 567938754 F51.3 Sleep disorder 03926687 G47.9 She reports extreme fatigue and loud snoring. Obtain sleep study. Prescribe eszopiclon e 1 mg 1 hour before sleep. [id number] Rocky Disla, DO Main Office [address] [facility],[address] [address] 06/05/2022 10:27:35 06/06/2022 15:18:44 Abdominal pain 21854227 R10.9 Patient has exam findings and symptoms consistent with urinary tract infection will screen. Urinary tr act infectious disease 36973874 N39.0 Patient has urinary tract infection. Will treat and send patient's urine for micro and possible culture. Advised the patient to return to clinic in 3 days if not improved or he gets worse sooner. Diverticul itis of colon 914072320 K57.32 pt has a history of diverticul itis. She does report eating some popcorn recently. She does not have fever or diarrhea. Pt exam was essentiall y unremarkab le and only had a mild discomfort to palpation RLQ. Advised the patient to start a CL diet and advance. RTC if not improved or gets worse. Benign ess ential hypertension 2174765 I10 Pt has elevated B/P discussed things the patient can do to help with B/P at home. Advised the patient to keep home B/P for two weeks and submit to clinic. [id number] Rocky Disla DO Main Office [address] [facility],[address] [address] 06/30/2022 11:41:59 07/03/2022 16:53:24 Respiratory tract congestion and cough 630925325 R05.9 Patient has exam findings and symptoms consistent with upper respirator y tract infection patient also reports that she had a positive home COVID test we will repeat test here today. COVID-19 645822028 U07.1 Patient has COVID-19. Lengthy discussion with patient about treatment plan. Patient understand s. Further discussed with the patient red flag signs and symptoms when to seek emergency care. Patient has good understand ing. Advised patient if not improved by Sunday to return to clinic. [id number] Rocky Disla DO Main Office [address] [facility],[address] [place] [address] 07/04/2022 16:09:11 07/06/2022 09:18:58 COVID-19 545212546 U07.1 Patient has COVID-19. Patient is on the fifth day of her Paxlovid. Patient's symptoms appear improved from initial visit. Lungs are clear still clear. Patient refused x-ray. Advised patient to continue antibiotic s will start Medrol Dosepak advised patient if not improved by Sunday return to clinic advised the patient on red flag signs and symptoms of when to seek emergency care. We will give patient work note until Sunday. [id number] Rocky Disla, DO Main Office [address] [facility] [address] [place] [address] 07/25/2022 15:46:50 07/26/2022 13:59:20 Generalized acute body pains 788276005 R52 Patient is taking tramadol consistent ly. Patient needs to be evaluated by pain management for long-term pain medication . Dr. Disla has recommende d we refer to pain management . We will refer [id number] Rocky Disla DO Main Office [address] [facility] [address] [place] [address] 09/04/2022 14:18:39 09/05/2022 15:55:37 Cough 43747719 R05.9 Patient has symptoms and exam findings of upper respirator y tract infection patient reports that she was exposed to COVID 4 days ago. COVID test is negative discussed with patient. Further discussed with the patient things that she can do over-the-c ounter that will help with her symptoms such as Mucinex and antihistam sandra. Patient understand s. Advised patient if her sputum begins to have color ending or she was to get worse to notify this clinic within 72 hours. [id number] Rocky Disla DO Main Office [address] [facility] [address] [place] [address] 10/18/2022 15:41:31 10/19/2022 20:20:14 Benign essential hypertension 4784849 I10 Stable. Continue carvedilol 6.25 mg and triamteren e 37.5 mg-hydroch lorothiazi de 25 mg. Labs reviewed with patient. RTC in 6 months for labs and OV. Generalize d anxiety disorder 77865033 F41.1 She is feeling more sad and irritated. We agreed to try an increase in duloxetine 60 mg to 120 mg HS. She will let me know how she does on this medication increase. Vitamin D deficiency 347 98723 E55.9 Vitamin D 40. Encouraged 15 minutes of sunshine daily. May continue Vitamin D 50,000 units weekly. Will continue to monitor with 6 month labs. Gastroesop hageal reflux disease 549432355 K21.9 Continue omeprazole . Elevated head of bed 4 inches and do not eat or drink 2 hours before reclining. Fatigue 76838075 R53.83 TSH and Free T 4 WNL. Iron defic iency anemia 09076799 D50.9 Resolved. Continue healthy diet. Will continue to monitor with 6 month labs. Sleep disorder 20033171 G47.9 She reports extreme fatigue and loud snoring. Obtain sleep study. Prediabetes 368946404 R7 3.03 Fasting glucose 114 and A1c 5.9. Advised to avoid simple sugars in her diet. RTC in 6 months for labs and OV. Chronic ki dney disease stage 3 583431565 N18.30 BUN slightly elevated at 22 (6-20) and eGFR slightly low at 59 (>60). Encouraged increased water intake, decrease sodium, BP and glucose control. RTC in 6 months for labs and OV. Morbid obesity 681250541 E66.01 Advised to lose weight to improve her health. We discussed the topiramate she is currently taking and semaglutid e medication . Spasm 35223256 R25.2 Insomnia 180596389 G47.0 0 Seasonal a llergic rhinitis 430027905 J30.2 Stable. Continue montelukas t 10 mg daily. Instructed to use oral histamine such as zyrtec or claritin. Daily flonase or nasacort. Nocturnal sleep-related eating disorder 321915707 F51.3 Muscle pain 30626587 M79 .10 [id number] Rocky Disla, Main Office [address] [facility],[address] [place] [address] 12/26/2022 14:43:05 12/31/2022 22:49:15 Lower abdominal pain 69396076 R10.30 We discussed the possibilit y of this being diverticul itis. She will begin clear liquid diet for 24 hours, then soft diet for 24 hours. We agreed to prescribe cipro 500 mg and metronidaz ole 500 mg for 7 days. She will let us know if this does not improve. Pain of ri ght shoulder joint 2203215195 7389662 M25.511 We discussed obtaining cervical x-rays, but she said [facility] cannot afford this now. She will try to sleep with a rolled blanket under upper right arm to prevent arm from falling backwards towards the bed and stretching the shoulder. Morbid obesity 836585833 E66.01 Advised to lose weight to improve her health. We discussed semaglutid e medication . She would like to proceed. She signed the weight loss agreement. At this time her weight goal is 300 pounds. [id number] Rocky Disla, DO Main Office [address] [facility],[address] [place] [address] 01/03/2023 10:02:35 01/05/2023 15:00:20 Lower abdominal pain 76183957 R10.30 Patient reports that her pain just went away she did not do the diet nor did she do the antibiotic s. Patient denies any of those abdominal symptoms at this time. Congestion of nasal sinus 35719870 R09.81 Discussed with patient symptoms and test findings. Discussed with the patient things that she can do over-the-c ounter that will help with symptoms. Advised the patient if not improved in 3 days to return to clinic. Anterior c hest wall pain 743110293 R07.89 Patient complains of right upper chest wall pain points at clavicle more medial and reports tenderness . She reports that she did change a pillow but really has not changed the way that she has been sleeping discussed with the patient to take Tylenol use heating pad and to follow-up if not improved in 10 days To return to clinic.. Advised the patient there is no way to completely rule out this is from a cardiac origin here in this clinic and would need to be evaluated acutely in the emergency room setting. Patient does not believe this is cardiac and she does not want to go to the emergency room. Discussed with the patient red flag signs and symptoms when to seek emergency care. Pain in throat 113816034 R07.0 Patient has exam findings and symptoms consistent with strep throat will screen. Discussed with the patient things that she can do at home that will help with symptoms. Streptococ santa sore throat 70347000 J02.0 Patient has strep throat Will start treatment discussed with patient things that she can do at home to help with symptoms. Advised the patient to throw out toothbrush after 2 days on antibiotic s and return to clinic if not improved in 3 days Patient has good understand ing. [id number] Rocky Disla, DO Main Office [address] [facility],[address] [place] [address] 03/01/2023 14:20:12 03/05/2023 11:32:30 Morbid obesity 036930577 E66.01 Patient has had a 5 pound weight loss since December. Reports that her clothes are fitting differentl y. Discussed how swelling impacts weight. Further discussed patient dietary patterns. Patient continues to eat out and has not significan tly improved diet. Reports has cut down on portions and will order a kids meal. Is eating fewer sweets and has stopped drinking sodas. Lengthy discussed about patient goals and the habits needed to achieve goals. Educated patient on healthy eating habits and the need to increase number of daily steps by taking a walk (as tolerated) . Patient verbalized understand ing to all. Patient declines semaglutid e dose increase at this time due to cost. Will continue current dose and work on improving healthy habits. Patient scheduled for routine follow-up next month. Benign ess ential hypertension 4919932 I10 Stable. Blood pressure today 117/65. Continue carvedilol 6.25 mg and triamteren e 37.5 mg-hydroch lorothiazi de 25 mg. Patient due for fasting labs and OV next month. Generalize d anxiety disorder 16000666 F41.1 Improved. Continues to worry about family but the thoughts are not overwhelmi ng or interferin g with her daily routine. Feels the duloxetine 120 mg daily is helping. Recently went on a trip to [place] and enjoyed her time. Patient due for fasting labs and OV next month. Will re-evaluat e at that time. [id number] Rocky Disla, DO Main Office [address] [facility],[address] [place] [address] 04/26/2023 11:27:47 04/27/2023 14:01:32 Benign essential hypertension 5530519 I10 Stable. Continue carvedilol 6.25 mg and triamteren e 37.5 mg-hydroch lorothiazi de 25 mg. Labs reviewed with patient. RTC in 6 months for labs and OV. Generalize d anxiety disorder 12937404 F41.1 Patient reports has had an increase in irritation and sadness. 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 She feels that her medication is working. Continue duloxetine 120 mg HS. RTC in 3 months of sooner for evaluation . Vitamin D deficiency 347 76565 E55.9 Vitamin D 32. May continue Vitamin D 50,000 units weekly. RTC in 6 months for labs and OV. Gastroesop hageal reflux disease 853497575 K21.9 Continue omeprazole . Patient encouraged to avoid triggers, elevate head of bed 4 inches and do not eat or drink 2 hours before reclining. Verbalized understand ing. Iron defic iency anemia 03411153 D50.9 Resolved. Continue healthy iron rich diet. RTC in 6 months for labs and OV. Sleep disorder 93258157 G47.9 Is having increasing difficulty sleeping. States the lunesta has not been as effective as she hoped. She states she was previously taking another medication for sleep that worked well and still has the bottle at home. She will call the office to let us know the name of the medication . 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 Discussed bedtime habits and good sleep hygiene. Verbalized understand ing. Prediabetes [id number] R7 3.03 Improving. Fasting glucose 114 and A1c 5.9. Advised to avoid simple sugars and complex carbohydra ida. RTC in 6 months for labs and OV. Chronic ki dney disease stage 3 [id number] N18.30 BUN normalized at 20 and eGFR improved at 60. Encouraged increased water intake, decrease sodium, BP and glucose control. RTC in 6 months for labs and OV. Morbid obesity 995607892 E66.01 Advised to lose weight to improve her health. Patient continues to take topiramate and semaglutid e 0.25 weekly. She has lost 2 pounds since her last visit. Denies N/V/C. Discussed importance of dietary changes and walking daily. Patient is not working and has been more sedentary. Patient verbalized understand ing. Insomnia [id number] G47.0 0 Refill requested. Will refill. [id number] Rocky Disla, Main Office [address] [facility],[address] [place] [address] 08/09/2023 15:56:28 08/15/2023 16:24:00 Pain of right shoulder joint [id number] M25.511 Reports increasing pain to right shoulder. Unable to flex and extend over head without discomfort . Patient describes pain that wraps around shoulder anterior to posterior. Pain worsens with movement. Patient will likely need advanced imaging as I suspect rotator cuff involvemen t. Will refer to orthopedic surgeon. [id number] Rocky Disla DO Main Office [address] [facility],[address] [place] [address] 05/19/2024 16:28:38 05/23/2024 16:50:06 Benign essential hypertension 7954545 I10 Blood pressure 132/92. Reports is stressed today. Continue carvedilol 6.25 mg and triamteren e 37.5 mg-hydroch lorothiazi de 25 mg. Labs reviewed with patient. RTC in 6 months for labs and OV. Generalize d anxiety disorder 79337989 F41.1 Stable. Is happy with new job and is expecting a promotion soon. She feels that her medication is working. Continue duloxetine 120 mg HS. RTC in 3 months of sooner for evaluation . Vitamin D deficiency 347 19762 E55.9 Vitamin D 22. Continue Vitamin D 50,000 units weekly. RTC in 6 months for labs and OV. Gastroesop hageal reflux disease 862579125 K21.9 Continue omeprazole . Patient encouraged to avoid triggers, and not eat or drink 2 hours before reclining. Verbalized understand ing. Iron defic iency anemia 08882414 D50.9 Resolved. Continue healthy iron rich diet. RTC in 6 months for labs and OV. Prediabetes 284713305 R7 3.03 Last A1c 5.9. Advised to avoid simple sugars and complex carbohydra ida. RTC in 6 months for labs and OV. Chronic ki dney disease stage 3 672174739 N18.30 BUN normalized at 23 and eGFR improved at 68. Encouraged increased water intake, decrease sodium, BP and glucose control. RTC in 6 months for labs and OV. Morbid obesity 217832340 E66.01 Advised to lose weight to improve her health. Patient continues to take topiramate and will increase semaglutid e 0.50 weekly. She has gain 13 pounds since her last visit. Denies nausea and vomiting. Discussed importance of dietary changes and walking daily. Patient verbalized understand ing. RTC in 3 months for OV. Irritable bowel syndrome characterized by constipation 625255524 K58.1 Will try to identify triggers. Will start trial of miralax, patient provided with samples. RTC in 3 months for labs and OV. Diverticul itis of colon 024610966 K57.32 History of diverticul osis with discomfort to right/left lower quadrant. Will start clear liquid diet and treat with antibiotic s. Patient aware of red flag warnings and when to seek emergency care services. Will call or RTC if symptoms worsen. RTC as needed or in 3 months for labs and OV. 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 Patient has a history of fibromyalg ia. Discussed supportive care measures and natural ways to relieve tension. Will use cyclobenza shima for severe discomfort . RTC in 3 months for labs and OV. [id number] Rocky Disla, Main Office [address] [facility],[address] [place] [address] 09/25/2024 15:18:01 09/29/2024 12:09:35 Derangement of joint of hand [id number] 35992 M24.9 Patient reports that she was picking up a child about a week ago and felt something pop in my hand and then noticed pain and swelling at the right third finger proximal joint. Patient has wrapped it in an Manuel wrap. Will send patient for x-ray and notify patient of the results. Patient return to clinic after x-ray we discussed her right hand x-ray report. All questions answered I discussed RICE with patient we reviewed [employer]'s website about compressio n braces. 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 I did review the patient's allergies, She reports a doctor once told her to avoid NSAIDs because it makes her retain fluid. I advised the patient to weigh herself daily if she Harriett to more than 2 pounds in 1 day to notify this clinic. Morbid obesity 697706790 Z68.44 Patient reports that the weight loss medication does not seem to be working for her anymore she denies any heartburn she reports that she has always had constipati on she reports that it is no worse or no better. She is managing it. Discussed when the patient should contact this office greater than 15 minutes spent discussing educating and planning care about obesity with patient today. [id number] Rocky Disla DO Main Office [address] [facility],[address] [place] [address] 10/06/2024 16:08:15 10/07/2024 15:51:47 Acute sinusitis 06710763 J01.90 History and clinical exam consistent with sinusitis. Supportive care measures discussed. Will prescribe course of levofloxac in. Patient will call or RTC if develops worsening symptoms or changes in drainage, fever, or increasing discomfort /pressure to face/ears. Patient verbalized understand ing. [id number] Rocky Disla DO Main Office [address] [facility] [address] [place] [address] 11/19/2024 16:59:02 11/20/2024 14:58:18 Benign essential hypertension 0244235 I10 Blood pressure 168/88 manual. HR 97, has been having more frequent headaches and fatigue. Reports has been under a lot of stress in work. Reports has only been taking carvedilol once daily in the evening. Forgets morning dose. Patient advised on importance of taking medication as prescribed . Will resume carvedilol twice daily and add amlodipin 5 mg daily. Labs reviewed with patient. Reviewed blood pressure goals for age. Patient will monitor blood pressure at home and report elevated readings to clinic. RTC in 3 months for OV. Morbid obesity 900484692 E66.01 Advised on overall health benefits of weight loss. Patient will continue semaglutid e 0.5 mg weekly. Reports she had stopped taking the medication and started eating more. Denies nausea and vomiting. Discussed importance of dietary changes and walking daily. Patient verbalized understand ing. RTC in 3 months for OV. Vitamin D deficiency 347 51430 E55.9 Vitamin D 18. Increase Vitamin D 50,000 units to twice weekly. RTC in 6 months for labs and OV. Generalize d anxiety disorder 39805935 F41.1 Stable. 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 Reports she does feel stressed. Continue duloxetine 120 mg HS. RTC in 3 months for evaluation . Gastroesop hageal reflux disease 650369437 K21.9 Establishe d. Continue omeprazole 40 mg daily. Patient encouraged to avoid triggers, and not eat or drink 2 hours before reclining. Verbalized understand ing. Iron defic iency anemia 86138264 D50.9 Resolved. Continue healthy iron rich diet. RTC in 6 months for labs and OV. Prediabetes 741451490 R7 3.03 FBS 107. A1c 5.6. Advised to avoid simple sugars and complex carbohydra ida. RTC in 6 months for labs and OV. Chronic ki dney disease stage 3 388431062 N18.30 eGFR improved at 72. Encouraged increased water intake, decrease sodium, BP and glucose control. RTC in 6 months for labs and OV. Overactive urinary bladder 890272109 N32.81 Reports frequent urination and waking 3-4 times a night. States was previously on oxybutynin and this was helpful. Further discussed bladder irritants to avoid. Patient verbalized understand ing. Will resume oxybutynin 5 mg BID. Will re-evaluat e in 3 months. Fibromyalgia 766220485 M 79.7 Reports history of fibromyalg ia with episodes of severe pain. Reports take tramadol as needed. MANAGER EXCHANGE checked, last filled 06/24/24. Discussed medication expectatio ns and potential side effects. Patient verbalized understand ing. Will refill. Health Concerns Section Related Observation LastModified by Organization Detai ls LastModified Time None Recorded Concern Status LastModified by Organization Details LastModified Time None Recorded Advance Directives Directive None Recorded Payers Insurance Date Sequence Insurance Name Policy Number Policy Narayan Covered Member ID Narayan Member ID Guarantor Name 04/02/2018 1 [place] [id number] Bindu Soraida Dewey [id number] Bindu Wanda Dewey 11/06/2017 1 [employer] [id number] Carol Dewey [id number] Bindu Wanda Dewey 11/18/2024 1 [place] [id number] Bindu Wanda Dewey [id number] Bindu Wanda Dewey 05/12/2024 1 [id number] Ronnie Dewey [id number] Bindu Wanda Dewey 09/25/2024 1 *SELF PAY* Klever Muñoz Zuleima Notes Date Note Type Note Provider Name and Address Organization Details Recorded Time 4 text/html ShoulderReported bypatient.Hand Dominance:right Location:right; Radiating down to elbow Quality:burning; stabbing; throbbing; worsening Severity:moderate Duration:1 months Alleviating Factors:OTC medication; Used Lidocaine ointment with mild improvement Aggravating Factors:lifting; weightbearing Associated Symptoms:no numbness; no tingling; no swelling; no redness; no warmth; no ecchymosis; no catching/locking; no buckling; no grinding; no instability; no drainage; no fever; no chills; no weight loss; no change in bowel/bladder habits;weakness;popping/c licking;radiation down arm Previous Surgery:none Prior Imaging:none Previous Injections:none Previous PT:none Work Related:yes RONAL Early [address] [place] [address], [address], [facility] - Dr. Rocky Disla, [facility] 08/13/2023 18:44:48 4 text/html FibromyalgiaReported bypatient.Notes:Increasin g pain throughout entire bodyHypertension F/UReported bypatient.Medications:no side effects from medication; Does not monitor at home. Lifestyle:not exercising regularly;high salt intake;noncompliant with low salt diet Associated Symptoms:no lightheadedness; no shortness of breath; no calf pain with exertion; no headache;dizziness;chest pain;palpitations;edemaNo ida:Pt is here following up on lab work.InsomniaReported bypatient.Notes:Not sleeping wellMajor Depressive DisorderReported bypatient.Onset/Timing:as long as patient can remember Duration of Episodes:whole life Severity:moderate Context:history of depression Associated Symptoms:fatigue;high irritability;sleep disturbances RONAL Early [address], [address], CJ Disla, [facility] 05/22/2024 16:48:14 5 text/html Hand/FingersReported bypatient.Notes:Patient is here with concerns of right hand pain that started last week after 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 Tevin RONAL Mcrae [address], [address], [facility] - Dr. Rocky Disla, [facility] 09/25/2024 17:48:58 5 text/html Upper Respiratory SymptomsReported bypatient.Location:head; chest Quality:productive cough;colored phlegm;congested Severity:moderate Context:no sick contacts; no foreign travel; non-smoker Associated Symptoms:no sputum production; no change in number of pillows needed to sleep at night; no sweats; no fever; no significant weight gain; no significant weight loss; no morning cough; no sore throat; no vomiting; no diarrhea; no rash; no nausea;chest pain;shortness of breath;fatigue Patient here today with cough and congestion that initially started a few months ago. States she has been on 2 rounds of antibiotics and steroids but symptoms return as soon as medication is completed. RONAL Early [address], [address], [facility] - Dr. Rocky Disla, [facility] 10/06/2024 16:45:57 5 text/html Hypertension F/UReported bypatient.Medications:no side effects from medication; Does not monitor at home. Lifestyle:not exercising regularly;high salt intake;noncompliant with low salt diet Associated Symptoms:no lightheadedness; no shortness of breath; no calf pain with exertion; no headache;dizziness;chest pain;palpitations;edemaNo ida:Pt is here following up on lab work.InsomniaReported bypatient.Notes:Not sleeping wellMajor Depressive DisorderReported bypatient.Onset/Timing:as long as patient can remember Duration of Episodes:whole life Severity:moderate Context:history of depression Associated Symptoms:fatigue;high irritability;sleep disturbances RONAL Early [address], [address], [facility] - Dr. Rocky Disla, [facility] 11/19/2024 19:03:35 OBGyn Episode No OBEpisode recorded.
--- OUTSIDE RECORDS SUMMARY | 2024-12-05 22:17 | XMS_ITS | Encounter Summary ---
Author Organization [facility] Address [address] [address] Care Team Providers Care High Speed Warper Tender Name Role Phone Rocky Disla DO Primary Care Provider George Chen RN Unavailable [phone] Alexa Maynard RN Unavailable [phone] Octavio Santos MD Primary Care Provider [phone] Ector Zamarripa RN Unavailable Unavailab le Encounter Details Date Type Department Care Team (Late st Contact Info) Description 07/29/2020 Orders Only [facility] Vaccination [address] [address] Jose Angel Auguste MD [address] [place] [address] Social History Tobacco Use Types Packs/Day Years Used Date Smoking Tobacco: Never Smokeless Tobacco: Never Alcohol Use Standard Drinks/Week Comments Not Currently 0 (1 standard drink = 0.6 oz pur e alcohol) Depression Answer Date Recorded PHQ2 Screening score 0 08/26/2019 Last PHQ-9 Score Not on file 08/26/2019 Comments Unknown Sex and Gender Information Value Date Recorded Sex Assigned at Not on file Legal Sex Female 10:38 PM CDT Gender Identity Not on file Sexual Orientation Not on file documented as of this encounter Plan of Treatment Upcoming Encounters Date Type Department Care Team (Late st Contact Info) Description 12/19/2024 3:15 PM CDT Office Visit [facility] [address] [place] [address] Anders Leon PA-C [address] [place] [address] documented as of this encounter Visit Diagnoses Not on filedocumented in this encounter Care Teams High Speed Warper Tender Relationship Specialty Start Date End Date Rocky Disla DO [address] [facility] [address] [place] [address] PCP - General Family Medicine 07/02/19 06/23/24 Octavio Santos MD [address] [address] [address] [place] [address] PCP - General Family Medicine 06/24/24 George Chen, RN bar tacker sewing machine [facility] 04/06/24 05/05/24 Alexa Maynard RN [place] bar tacker sewing machine [facility] 05/06/24 08/03/24 Ector Zamarripa, RN bar tacker sewing machine [facility] 08/04/24 10/03/24 documented as of this encounter
--- OUTSIDE RECORDS SUMMARY | 2024-12-05 22:17 | XMS_ITS | Patient Health Record ---
Author Organization [facility] Address [address] [facility] [address] Care Team Providers Care Home Staging Specialist Name Role Phone NaifDevinRocky Primary Care Provider Unavailab Dr Kenny Colon Unavailable [phone] Barbie Mills Unavailable Unavailable Allergies Allergen (clinical drug ingredient) Drug/Non Drug Allergy documented on EMR Reaction Allergy Type Onset Date Status angiotensin-converting enzyme inhibitor (FN) JUSTINE Inhibitors Unknown Drug Allergy Acti ve ketamine Ketamine Unknown Drug Allergy Active Non-steroidal anti-inflammatory agent (FN) NSAIDs Unknown Drug Allergy Active Reason For Referral No Information Medications Medication SIG (Take, Route, Frequency, Duration) Notes Start Date End Date Status FeroSul 325 (65 Fe) MG TAKE ONE (1) TABL ET(S) BY MOUTH ONCE A DAY. Oral for 90 Days Not-Taking Omeprazole 40 MG TAKE ONE (1) CAPSULE (S) BY MOUTH ONCE A DAY. Oral for 90 Days Active Carvedilol 6.25 MG TAKE ONE (1) TABLET( S) BY MOUTH TWICE A DAY. Oral for 90 Days Active DULoxetine HCl 60 MG TAKE TWO (2) CAPSUL E(S) BY MOUTH EVERY DAY AT BEDTIME. Oral for 90 Days Active traMADol HCl 50 MG Oral for 10 Days PRN Active Eszopiclone 2 MG Oral for 30 Days Active Montelukast Sodium 10 MG TAKE ONE (1) TA BLET(S) BY MOUTH ONCE A DAY. Oral for 90 Days Active Hyoscyamine Sulfate ER 0.375 MG TAKE ONE (1) TABLET(S) BY MOUTH EVERY TWELVE HOURS. Oral for 90 Days Active Topiramate 25 MG TAKE ONE (1) TABLET( S) BY MOUTH AT BEDTIME. Oral for 90 Days Active Social History Tobacco Use: Social History Observation Description Date Details (start date - stop date) Never Smoker NA - NA Tobacco Smoking Question Answer Notes Are you a: never smoker Problems Problem Type SNOMED Code ICD Code Onset Dates Problem Status W/U Status Risk Notes Problem 8968645 Primary insomnia (F51.01) Active confirmed Problem 89913172 Sleep disorder, unspecified (G47.9) Active confirmed Problem 18707289 Obstructive slee p apnea syndrome (G47.33) Active confirmed Problem 14863423 Obstructive slee p apnea (G47.33) Active confirmed Problem 915714210 Morbid obesity (E66.01) Active confirmed Problem 26035838 Sleep disorder (G47.9) Active confirmed Problem 789562728 Gastroesophageal reflux disease, unspecified whether esophagitis present (K21.9) Active confirmed Plan Of Treatment No Information Insurance Providers Payer Name Payer Address Payer Phone Subscriber Number Group Number Insured Name Patient Relationship to Insured Coverage Start Date Coverage End Date [facility] [address] [place] [address] [id number] Bindu Dewey Self - patient is the insured Medical (General) History Medical History History ICD Code anemia Allergic rhinitis Depression HTN Insomnia GERD Enlarged Liver fibromyalgia Morbid obesity , Class 4 Surgical History Surgery Date(Month/Year) cataract removal tubal ligation Hernia repair cyst removal Kidney stones Foot surgery Hospitalization History Reason Date(Month/Year) Denies
--- OUTSIDE RECORDS SUMMARY | 2024-12-05 22:17 | XMS_ITS | CCD ---
Author Name Interface, [id number] Address [place] [address] [facility] Address [place] [address] Allergies and Adverse Reactions Medication/Group Name Reaction Severity Date naproxen no mappable FDB reaction NSAIDS (Non-Steroidal Anti-I nflammatory Drug) no mappable FDB reaction 09/16/2007 NSAIDS (Non-Steroidal Anti-I nflammatory Drug) no mappable FDB reaction 09/16/2007 ibuprofen no mappable FDB reaction Reason for Visit Functional Status Date Name Score 06/03/2015 Karnofsky performance status 80 06/28/2015 Karnofsky performance status 80 09/16/2007 Karnofsky performance status 80 05/03/2015 Karnofsky performance status 70 Medications Date Name Route Dose Frequency Instructions Start Date End Date Status Omeprazole Oral Delayed Release Capsule PO 1.0 CAPSULE(S) , ENTERIC COATED daily 016 active 016 Gabapentin Oral PO 1.0 CAPSULE(S) BID 016 active 016 Citalopram Oral PO 1.0 TABLET(S) daily 016 active 016 Amitriptyline Oral PO 1.0 TABLET(S) QHS 016 active 016 Quetiapine Oral PO 1.0 TABLET(S) daily 016 active 016 Acetaminophen Oral PO 2.0 TABLET(S) as directed 016 active Carvedilol Oral PO 1.0 TABLET(S) BID 016 active 016 Bupropion (IR) Oral PO 1.0 TABLET(S) daily 016 active 016 Miscellaneous Drug PO 1.0 CAPSULE(S) , ENTERIC COATED daily 016 active 016 Duloxetine Oral Delayed Release PO 1.0 CAPSULE(S) BID 016 active 008 Multivitamins Oral Tablet PO 1.0 TABLET(S) daily 008 active 008 Calcium Carbonate Oral PO 1.0 TABLET(S) BID 008 active 008 Cyclobenzaprine Oral PO 1.0 TABLET(S) QID PRN 008 active 008 Melatonin Oral PO 1.0 TABLET(S) qhs 008 active 008 Cyanocobalamin Oral PO 1.0 TABLET(S) as directed 008 active Problems Diagnosis Status Date of Diagnosis Resolution Date Anemia of chronic disorder (disorder) Active 2006 Fibromyalgia (disorder) Active Iron deficiency anemia (disorder) Active 04/2015 Body mass index [BMI] 50.0-59.9, adult Inactive Anxiety (finding) Active Depressive disorder (disorder) Active Social History Date Name Value Sex Female
--- OUTSIDE RECORDS SUMMARY | 2024-12-05 22:17 | XMS_ITS | Clinical Summary ---
Author Organization [facility] Address [address] [place] [address] Phone Care Team Providers Care Link Assembler Name Role Phone Unavailable Primary Care Provider Unavailabl e Social History Tobacco Use Types Packs/Day Years Used Date Smoking Tobacco: Never Assessed Comments Unknown Sex and Gender Information Value Date Recorded Sex Assigned at Not on file Legal Sex Female 4:51 PM CALCINER FEEDER Gender Identity Not on file Sexual Orientation Not on file Plan of Treatment Not on file
[2024-12-05 22:18] VITALS: BP 175/92; PULSE 75; RESP 16; TEMP 36.8; O2SAT 94; BMI 53.2
[2024-12-06 00:44] VITALS: BP 150/77; PULSE 62; RESP 16; O2SAT 98
--- NOTE | 2024-12-06 01:14 | ED_ITS ---
HPI - Skin/Abscess/Foreign Bdy 2 General: Chief complaint: Skin/Abscess/Foreign Body Stated complaint: face left check swelling red Time Seen by Provider: 12/06/24 00:46 History of Present Illness: Patient is a 59-year-old female traveling here from the [place] area that presented with initially noting an area to her left upper cheek that occurred yesterday. This worsened today as redness throughout her left cheek. Just below her eye. This is never occurred before. No injury. No fevers. Associated symptoms: Deny chills, fever(s), nausea or vomiting Related Data Previous Rx's ?Medication ?Instructions ?Recorded cefdinir 300 mg capsule 300 mg PO BID 10 days #20 ca ps 12/06/24 doxycycline hyclate 100 mg capsule 100 mg PO BID 10 da ys #20 caps 12/06/24 Allergies Allergy/AdvReac Type Severity Reaction Status Date / Time JUSTINE Inhibitors Allergy ADR-Cough Verified 12/05/24 22:21 NSAIDS (Non-Steroidal Allergy Unknown Verified 12/05/24 22:22 Anti-Inflamma Review of Systems 2 General: Reports: 10 or more systems reviewed and unremarkable except in HPI and below Const: Denies: fever(s), chills, fatigue or malaise Eyes: Denies: change in vision, blurry vision, blind spots, photophobia or eye discomfort ENMT: Denies: throat pain or mouth pain Card: Denies: chest pain or palpitations Resp: Denies: dyspnea, productive cough, non-productive cough or wheezing GI: Denies: abdominal pain, nausea or vomiting : Denies: flank pain or difficulty voiding Musc: Denies: neck pain or back pain Skin/Breast: Reports: rash, erythema and new lesions; Denies: pruritus Physical Exam 2 Const: COMMON NORMALS: no acute distress and patient oriented x3 N UTRITIONAL APPEARANCE: obese HENMT: COMMON NORMALS: normocephalic HEAD & SCALP: normocephalic FACE & SINUS IMAGES: 1. Erythema, mild edema Eye: COMMON NORMALS: Equal, round and reactive pupils present, EOMs intact bilaterally and conjunctivae normal VISUAL ACUITY: Yes acuity normal C ONJUNCTIVA: Yes conjunctivae normal PUPIL: Yes Equal, round and reactive pupils present Neck/C-Spine: COMMON NORMALS: full ROM and no lymphadenopathy Lymph: LYMPHATIC: no lymphadenopathy noted Chest: COMMONS NORMALS: normal inspection of the chest and normal palpation of entire chest wall Resp: COMMON NORMALS: normal respiratory effort and No retractions Cardio: COMMON NORMALS: regular rate and regular rhythm RATE: regular rate RHYTHM: regular rhythm GI: COMMON NORMALS: Normal to inspection, nondistended, normoactive bowel sounds present : COMMON NORMALS: Yes no CVA tenderness BLADDER/KIDNEY EXAM: Yes no CVA tenderness Back/Pelvis: COMMON NORMALS: no CVA tenderness Extremity: COMMON NORMALS: normal to inspection, full ROM and capillary refill normal Neuro: COMMON NORMALS: patient oriented x3 and CN's II-XII intact bilaterally Psych: COMMON NORMALS: mental status grossly normal and Normal thought process present THOUGHT PROCESS: Normal thought process present Skin: NARRATIVE SKIN EXAM: see above Course 2 Vital Signs: Vital signs: Vital Signs Temperature 98.2 F 12/05/24 22:18 Pulse Rate 62 12/06/24 00:44 Respiratory Rate 16 12/06/24 00:44 Blood Pressure 150/77 12/06/24 00:44 Pulse Oximetry 98 12/06/24 00:44 Oxygen Delivery Me thod Room Air 12/06/24 00:44 MDM - Skin/Abscess/Foreign Bdy Medicial Decision Making Patient is a pleasant 59-year-old female that presents with 1 day of increasing redness underneath her left eye, just within the ocular bed, and extending down the face with midface redness. There are no other red flags. Patient is not having any fever. There is no blurry vision or concern for visual changes. She has not had any injury to this area, however what sounds like inclusion cyst was first in this area. I have evaluated this area with otoscopic examination, which does not show any concern for eye association. This appears to be associated with erysipelas. Typically group A strep is associated with erysipelas, therefore we will give her double coverage antibiotics with doxycycline, cefdinir, and ceftriaxone here x 1. No radiology studies performed this visit Discharge Plan Discharge Patient Disposition: Home Clinical Impression: Erysipelas of face Condition: Stable Prescriptions: New doxycycline hyclate 100 mg capsule 100 mg PO BID 10 Days Qty: 20 0RF cefdinir 300 mg capsule 300 mg PO BID 10 Days Qty: 20 0RF Discharge Orders: Discharge ED (Routine); Ordered 12/06/24 Ordered By: Joanne Palumbo Discharge Diet: Usual diet Discharge Activity: Resume usual activity Patient Instructions: Silvia, Patient Portal & Alison Instructions Activity Restrictions/Additional Instructions: Make sure you pick your medicine up early in the morning. [facility] is only open until noon. Your medicine was sent to them electronically with 2 antibiotics. Preferably obtain your medication before 9 AM and start both of them at once. Take twice daily for 10 days. Utilize probiotic or active culture yogurt to avoid infectious diarrhea. You may apply a warm compress to this area for comfort. You may utilize ice for comfort. You may utilize Tylenol, or ibuprofen for pain. Return to ED for worsening redness, extended throughout the face, fever greater than 100.4 ?F. You will need to follow-up with your primary care physician regarding today's visit. Please call on Sunday for a follow-up appointment for reevaluation. Print Language: Turkmen Coding Level of Care Code ED Airport Control Operator for Yesi Vazquez
[2024-12-06] MEDS: HYDROcodone-acetaminophen 10-325 mg Tablet 1 TAB PO (01:33)
[2024-12-06] MEDS: cefTRIAXone 1,000 mg SDV 1000 MG IM (01:34)
== END 2024-12-06 02:29 | disposition home or self-care (01) ==
PROVIDERS: Emergency Provider Physician Assistant
DX: A46 Erysipelas (principal)
CPT/HCPCS: 96372; 99284; J0696; J9999

== ENCOUNTER 2024-12-06 20:41 | Inpatient (IN) | payer BC, SELFPAY ==
--- OUTSIDE RECORDS SUMMARY | 2024-12-06 20:45 | XMS_ITS | Patient Health Record ---
Author Organization [facility] Address [address] [facility] [address] [place] [address] Care Team Providers Care Crystal Machining Coordinator Name Role Phone Patric Lynn DO Primary [...]
--- OUTSIDE RECORDS SUMMARY | 2024-12-06 20:45 | XMS_ITS | Clinical Summary ---
Author Organization [facility] Address [address] [address] Care Team Providers Care Barrel Bung Remover And Dumper Name Role Phone Octavio Santos MD Primary Care Provider [phone] Allergies Active Allergy Reactions Criticality Noted Date [...] Morbid obesity with BMI of 50.0-59.9, adult ([facility]) Inject 0.75 mLs (1 mg total) under [...] Comments Blood Pressure 126/70 06/24/2024 4:19 PM PIER RUNNER Pulse 69 06/24/2024 4:19 PM PIER RUNNER Temperature 36.7 C (98.1 F) 06/24/2024 4:19 PM PIER RUNNER Respiratory Rate 18 06/24/2024 4:19 PM [facility]ER [facility]NER Oxygen Saturation 97% 06/24/2024 4:19 PM PIER RUNNER Inhaled Oxygen Concentration - - Weight 139.7 kg (308 lb) 08/18/2024 8:48 AM CDT Height 165.1 cm (5' 5 ) 08/18/2024 8:48 AM CDT Body Mass Index 51.25 08/18/2024 8:48 AM CDT Plan of Treatment Upcoming Encounters Date Type Department Care Team (Late st Contact Info) Description 12/19/2024 3:15 PM CDT Office Visit [facility] [place] [facility] [place] [address] [place] [address] Anders Leon PA-C [address] [place], [place] [id number] Health Maintenance Due Date Last Done Comments [...] age to complete this topic Insurance EXCHANGE [facility] EXCHANGE [facility] EXCHANGE [facility] EXCHANGE [facility] INS Care Teams Barrel Bung Remover And Dumper Relationship Specialty Start Date End Date Octavio Santos MD [address] [address] [address] [place] [address] PCP - General Family Medicine 06/24/24
--- OUTSIDE RECORDS SUMMARY | 2024-12-06 20:45 | XMS_ITS | CCD ---
Author Name Interface, [id number] lity Address [place] [address] [facility] Address [place] [address] Allergies and Adverse Reactions Medication/Group Name Reaction [...] CAPSULE(S) , ENTERIC COATED daily 016 active Gabapentin Oral PO 1.0 CAPSULE(S) BID 016 [...] PO 1.0 TABLET(S) daily 016 active 016 Duloxetine Oral Delayed Release PO 1.0 CAPSULE(S) BID 016 active 016 Miscellaneous Drug PO 1.0 CAPSULE(S) , ENTERIC COATED daily 016 active 008 Multivitamins Oral Tablet PO [...]
--- OUTSIDE RECORDS SUMMARY | 2024-12-06 20:45 | XMS_ITS | CCD ---
Author Name Interface, [id number] lity Address [place] [address] [facility] Address [place] [address] Allergies and Adverse Reactions Medication/Group Name Reaction [...]
--- OUTSIDE RECORDS SUMMARY | 2024-12-06 20:45 | XMS_ITS | Patient Health Record ---
Author Organization [facility] Address [address] [facility] [place] [address] Care Team Providers Care Accounting Instructor Name Role Phone NaifDevinRocky Primary Care Provider Unavailab Dr Kenny Colon Unavailable [phone] Barbie Mills Unavailable Unavailable Allergies Allergen (clinical [...] Problem Status W/U Status Risk Notes Problem 1617771 Primary insomnia (F51.01) Active confirmed Problem 13692734 Sleep disorder, unspecified (G47.9) Active confirmed Problem 88525445 Obstructive slee p apnea syndrome (G47.33) Active confirmed Problem 08988288 Obstructive slee p apnea (G47.33) Active confirmed Problem 789506060 Morbid obesity (E66.01) Active confirmed Problem 02009059 Sleep disorder (G47.9) Active confirmed Problem 531757052 Gastroesophageal reflux disease, unspecified whether esophagitis present (K21.9) Active confirmed Plan Of Treatment No Information Insurance Providers Payer Name Payer Address Payer Phone Subscriber Number Group Number Insured Name Patient Relationship to Insured Coverage Start Date Coverage End Date [facility] [address] [place] [address] [id number] Bindu Dewey Self - patient is the insured Medical (General) History Medical History History ICD Code anemia Allergic rhinitis Depression HTN Insomnia GERD Enlarged Liver fibromyalgia Morbid obesity , Class 4 Surgical History Surgery Date(Month/Year) cataract removal tubal ligation Hernia repair cyst removal Kidney stones Foot surgery Hospitalization History Reason Date(Month/Year) Denies
--- OUTSIDE RECORDS SUMMARY | 2024-12-06 20:45 | XMS_ITS | Encounter Summary ---
Author Organization [facility] Address [address] [address] Care Team Providers Care Parts Remover Name Role Phone Rocky Disla DO Primary Care Provider George Chen RN Unavailable [phone] Alexa Maynard RN Unavailable [phone] Octavio Santos MD Primary Care Provider [phone] Ector Zamarripa RN Unavailable Unavailab le Encounter Details Date Type Department Care Team (Late st Contact Info) Description 07/29/2020 Orders Only [facility] Vaccination [address] [address] Jose Angel Auguste MD [address] [place] [address] Social History Tobacco Use Types [...] Description 12/19/2024 3:15 PM CDT Office Visit [facility] [place] [place] [facility] [place] [address] [place] [address] [place] [phone] Anders Leon PA-C [address] [place] [address] documented as of this encounter Visit Diagnoses Not on filedocumented in this encounter Care Teams Parts Remover Relationship Specialty Start Date End Date Rocky Disla DO [address] [facility] [address] [place] [phone] PCP - General Family Medicine 07/02/19 06/23/24 Octavio Santos MD [address] [address] [address] [place] [address] PCP - General Family Medicine 06/24/24 George Chen, RN enhanced environmental operator Longitudinal Care Management 04/06/24 05/05/24 Alexa Maynard RN PR enhanced environmental operator Longitudinal Care Management 05/06/24 08/03/24 Ector Zamarripa, RN enhanced environmental operator Longitudinal Care Management 08/04/24 10/03/24 documented as of this encounter
--- OUTSIDE RECORDS SUMMARY | 2024-12-06 20:45 | XMS_ITS | Patient Health Record ---
Author Organization [facility] Address [address] [place] [address] Care Team Providers Care Hammer Setter Name Role Phone Rocky Disla Primary Care [...] Oral; Duration: 30 Not-Taking Vitamin D (Ergocalciferol) 67065 UNIT TAKE ONE (1) CAPSULE(S) BY MOUTH [...] Status W/U Status Risk Notes Problem Fibromyalgia ([id number]) Fibromyalgia (M79.7) Active confirmed Plan Of Treatment No Information Insurance Providers Payer Name Payer Address Payer Phone Subscriber Number Group Number Insured Name Patient Relationship to Insured Coverage Start Date Coverage End Date [facility] [address] [place] [address] [id number] LALY GEORGE Self - patient is the [...]
--- OUTSIDE RECORDS SUMMARY | 2024-12-06 20:45 | XMS_ITS | Clinical Summary ---
Author Organization [facility] Address [address] [place] [address] Phone Care Team Providers Care Remote Sensing Analyst Name Role Phone Unavailable Primary Care Provider Unavailabl e Social History Tobacco Use Types Packs/Day Years Used Date Smoking Tobacco: Never Assessed Comments Unknown Sex and Gender Information Value Date Recorded Sex Assigned at Not on file Legal Sex Female 4:51 PM FOXER Gender Identity Not on file Sexual Orientation Not on file Plan of Treatment Not on file
[2024-12-06 20:56] VITALS: BP 177/82; PULSE 73; RESP 18; TEMP 36.8; O2SAT 96; BMI 53.2
--- NOTE | 2024-12-06 21:19 | CTR_ITS ---
PROCEDURE INFORMATION: Exam: CT Orbits With Contrast Exam date and time: 12/06/2024 9:56 PM Age: 59 years old Clinical indication: Worsening possible cellulitis to inferior aspect of left orbit. ; Additional info: L eye periobital cellulitis TECHNIQUE: Imaging protocol: Computed tomography of the orbits with contrast. Radiation optimization: All CT scans at this facility use at least one of these dose optimization techniques: automated exposure control; mA and/or kV adjustment per patient size (includes targeted exams where dose is matched to clinical indication); or iterative reconstruction. Contrast material: OMNI 350; Contrast volume: 80 ml; Contrast route: INTRAVENOUS (IV); COMPARISON: CT head wo con* [id number] 12/06/2024 9:53 PM RADIATION DOSE METRICS: Total DLP (mGy-cm): 382.98 FINDINGS: Paranasal sinuses: The paranasal sinuses are clear. Orbital cavities: The globes are intact. The retro-orbital fat is within normal limits. There is no evidence of periosteal abscess. Bones/joints: No acute osseous abnormalities are seen. Soft tissues: Mild skin thickening and subcutaneous edema in the left infraorbital region compatible with cellulitis. CT/CT orbit BI w con [id number] IMPRESSION: Mild skin thickening and subcutaneous edema in the left infraorbital region compatible with cellulitis. No evidence of orbital cellulitis.
[2024-12-06 21:33] LABS: Hematocrit 35.9 % (36-47); Hemoglobin 11.20 g/dL (11.27-16.99); Mean Corpuscular HGB Conc 31.2 g/dL (30-55); Mean Corpuscular Hemoglobin 26.5 pg (27-33); Mean Corpuscular Volume 84.9 fl (85-98); Nucleated Red Blood Cells % 0 %; Platelet Count 227 10^3/cmm (157-399); Red Blood Count 4.23 10^6/uL (3.85-5.65); White Blood Count 5.80 10^3/uL (3.29-11.43)
[2024-12-06] MEDS: piperacillin-tazobactam 3.375 GM in sodium chloride 0.9% (plus) 50 ML IV (21:36)
--- NOTE | 2024-12-06 21:40 | W.ED.SKABFB ---
HPI - Skin/Abscess/Foreign Bdy General: Chief complaint: Skin/Abscess/Foreign Body Stated complaint: spot on face is worsening Time Seen by Provider: 12/06/24 21:09 History of Present Illness: 59-year-old female who was diagnosed with erysipelas around her left eye yesterday. She has had 2 dose of antibiotics at home. Today earlier in the day she seemed to improve a bit, but this evening, pain, redness, and swelling became worse. She is experiencing some pain under and behind her eye she says. No significant pain with eye movement. No blurry vision. She felt feverish earlier as well, as she had shaking chills. No vomiting. No shortness of breath. No headache proper. Related Data Home Medications ?Medication ?Instructions ?Recorded ?Confirmed acetaminophen 325 mg tablet 650 mg PO QID PRN Pain 12/07/24 12/07/24 amlodipine 5 mg tablet 5 mg PO DAILY 12/07/24 12/07/24 carvedilol 6.25 mg tablet 6.25 mg PO BID 12/07/24 12/07/24 cyclobenzaprine 5 mg tablet 5 mg PO BEDTIME 12/07/24 12/07/24 duloxetine 60 mg capsule,delayed 120 mg PO BEDTIME 12/07/24 12/07/24 release ergocalciferol (vitamin D2) 1,250 1,250 mcg PO Q7D 12/07/24 12/07/24 mcg (50,000 unit) capsule (Vitamin D2) montelukast 10 mg tablet 10 mg PO DAILY 12/07/24 12/07/24 omeprazole 40 mg capsule,delayed 40 mg PO BEDTIME 12/07/24 12/07/24 release oxybutynin chloride 5 mg tablet 5 mg PO BEDTIME 12/07/24 12/07/24 tramadol 50 mg tablet 50 mg PO BID PRN Pain 12/07/24 12/07/24 Previous Rx's ?Medication ?Instructions ?Recorded cefdinir 300 mg capsule 300 mg PO BID 10 days #20 caps 12/06/24 doxycycline hyclate 100 mg capsule 100 mg PO BID 10 days #20 caps 12/06/24 Allergies Allergy/AdvReac Type Severity Reaction Status Date / Time JUSTINE Inhibitors Allergy ADR-Cough Verified 12/05/24 22:21 hydrogen peroxide Allergy ALGY-Bliste Verified 12/06/24 21:26 r ketamine Allergy ALGY-Anaphy Verified 12/06/24 21:25 laxis NSAIDS (Non-Steroidal Allergy Unknown Verified 12/05/24 22:22 Anti-Inflamma Physical Exam Const: COMMON NORMALS: no acute distress GENERAL APPEARANCE: cooperative; not ill appearing and not frail appearing HENMT: COMMON NORMALS: normocephalic, atraumatic and Normal external nose present HEAD & SCALP: normocephalic and atraumatic FACE & SINUS: erythema (Left infraorbital) and edema (Left infraorbital); no ecchymosis and no laceration NOSE: Normal external nose present Eye: COMMON NORMALS: Equal, round and reactive pupils present and EOMs intact bilaterally PUPIL: Yes Equal, round and reactive pupils present OTHER: No pain with extraocular movement Neck/C-Spine: GENERAL: Yes trachea midline Chest: CHEST: Yes Symmetrical chest wall rise Resp: COMMON NORMALS: normal respiratory effort, No retractions, No use of accessory muscles and clear to auscultation bilaterally AUSCULTATION: clear to auscultation bilaterally Cardio: COMMON NORMALS: regular rate and regular rhythm RATE: regular rate RHYTHM: regular rhythm Neuro: RAFI COMA SCALE: document GCS findings [place] coma scale eye opening: Spontaneous [place] coma scale verbal response: Orientated [place] coma scale motor response: Obey commands Rafi coma scale total score: 15 SENSORY EXAM: Yes extremities (intact) Psych: COMMON NORMALS: speech normal SPEECH: Yes normal speech Course Vital Signs: Vital signs: Vital Signs Temperature 98.1 F 12/07/24 01:50 Pulse Rate 71 12/07/24 01:51 Respiratory Rate 18 12/07/24 01:51 Blood Pressure 210/85 12/07/24 01:51 Pulse Oximetry 95 12/07/24 01:51 Oxygen Delivery Me thod Nasal Cannula 12/07/24 02:02 MDM - Skin/Abscess/Foreign Bdy Medicial Decision Making Patient is afebrile here. She has no intense pain with extraocular movement. No blurry vision. Hemoglobin is 11. White blood cell count is 5.8. CT is pending. She is treated with vancomycin and Zosyn here. CT shows periorbital cellulitis. Swelling does appear a bit worse than when she arrived. She is given Solu-Medrol, 80 mg x 1 for this. Patient complained of a headache, and had a brief episode of aphasia prior to her CT scan. CT of the head/brain was ordered because of this. It is negative. She was hypertensive at the time. She was given 0.5 mg of Ativan, and some morphine for the headache. Blood pressure is now normal. Headache is essentially resolved. She is back to normal in terms of speech, movement, etc. with no signs of stroke. Because of failure of outpatient therapy with antibiotics orally, she will be admitted for inpatient IV antibiotics for periorbital cellulitis. Hospitalist agrees and will see the patient Lab Data 12/06/24 21:20 12/06/24 21:[address] 12/06/24 21:19 IMPRESSION: Mild skin thickening and subcutaneous edema in the left infraorbital region compatible with cellulitis. No evidence of orbital cellulitis. Head CT 12/06/24 21:47 IMPRESSION: 1. No acute intracranial pathology. 2. Trace fluid in the left anterior inferior mastoid air cells which are otherwise clear. Laboratory Results WBC 5.80 10^3/uL (3.29-11.43) 12/06/24 21:20 RBC 4.23 10^6/uL (3.85-5.65) 12/06/24 21:20 Hgb 11.20 g/dL (11.27-16.99) L 12/06/24 21:20 Hct 35.9 % (36-47) L 12/06/24 21:20 MCV 84.9 fl (85-98) L 12/06/24 21:20 MCH 26.5 pg (27-33) L 12/06/24 21:20 MCHC 31.2 g/dL (30-55) 12/06/24 21:20 RDW 13.4 % (12.1-15.1) 12/06/24 21:20 Plt Count 227 10^3/cmm (157-399) 12/06/24 21:20 MPV 11.0 fL (7.4-10.4) H 12/06/24 21:20 Neut % (Auto) 51.5 % 12/06/24 21:20 Lymph % (Auto) 36.6 % 12/06/24 21:20 [place] % (Auto) 9.1 % 12/06/24 21:20 Eos % (Auto) 1.9 % 12/06/24 21:20 Baso % (Auto) 0.7 % 12/06/24 21:20 Neut # (Auto) 2.99 10^3/uL (1.8-7.7) 12/06/24 21:20 Lymph # (Auto) 2.1 10^3/uL (0.8-4.8) 12/06/24 21:20 [place] # (Auto) 0.5 10^3/uL (0.2-0.9) 12/06/24 21:20 Eos # (Auto) 0.1 10^3/uL (0.0-0.8) 12/06/24 21:20 Baso # (Auto) 0.0 10^3/uL (0.0-0.1) 12/06/24 21:20 Nucleated RBC % (auto) 0 % 12/06/24 21:20 Nucleated RBCs # 0.0 /100WBC 12/06/24 21:20 ESR 27 mm/hr (0-15) H 12/06/24 21:20 Sodium 142 mmol/L (136-145) 12/06/24 21:20 Potassium 3.4 mmol/L (3.5-5.1) L 12/06/24 21:20 Chloride 105 mmol/L (98-107) 12/06/24 21:20 Carbon Dioxide 24 mmol/L (22-29) 12/06/24 21:20 Anion Gap 16.4 (5-19) 12/06/24 21:20 BUN 16 mg/dL (8-23) 12/06/24 21:20 Creatinine 0.7 mg/dL (0.5-0.9) 12/06/24 21:20 GFR Calculation 85.1 mL/min (90-130) L 12/06/24 21:20 Glucose 88 mg/dL (65-115) 12/06/24 21:20 Estimat Average Glucose 105 12/06/24 21:20 Hemoglobin A1c 5.3 % (4.0-6.0) 12/06/24 21:20 Calculated Osmolality 295 mOsm/kg (285-295) 12/06/24 21:20 Lactic Acid 1.1 mmol/L (0.5-2.2) 12/06/24 21:20 Calcium 8.8 mg/dL (8.5-10.5) 12/06/24 21:20 Total Bilirubin 0.5 mg/dL (0.15-1.2) 12/06/24 21:20 AST 12 U/L (0-32) 12/06/24 21:20 ALT 9 U/L (0-33) 12/06/24 21:20 Alkaline Phosphatase 96 U/L (35-105) 12/06/24 21:20 C-Reactive Protein 16.8 mg/L (0.0-4.9) H 12/06/24 21:20 Total Protein 6.9 g/dL (6.6-8.7) 12/06/24 21:20 Albumin 3.7 g/dL (3.5-5.2) 12/06/24 21:20 Globulin 3.2 g/dL (1.3-4.6) 12/06/24 21:20 All radiology interpretation(s) finalized by discharge Discharge Plan Discharge Patient Disposition: Admitted As Inpatient Admit Provider: Beata Angelo Clinical Impression: Periorbital cellulitis of left eye Condition: Stable Coding Level of Care Code ED Outside Rigger for Angelikag George
[2024-12-06 21:45] VITALS: BP 190/101; PULSE 71; O2SAT 96
--- NOTE | 2024-12-06 21:46 | PC.NURSE ---
pt states I don't feel right. Pt reports nausea, feeling odd and dizzy.
--- NOTE | 2024-12-06 21:47 | CTR_ITS ---
PROCEDURE INFORMATION: Exam: CT Head Without Contrast Exam date and time: 12/06/2024 9:53 PM Age: 59 years old Clinical indication: Dizziness with hypertension TECHNIQUE: Imaging protocol: Computed tomography of the head without contrast. Radiation optimization: All CT scans at this facility use at least one of these dose optimization techniques: automated exposure control; mA and/or kV adjustment per patient size (includes targeted exams where dose is matched to clinical indication); or iterative reconstruction. COMPARISON: No relevant prior studies available. RADIATION DOSE METRICS: Total DLP (mGy-cm): 1168.28 FINDINGS: Brain: No intracranial hemorrhage. No edema or mass effect. Trace periventricular deep white matter hypodensities are nonspecific though typical of small vessel chronic ischemic disease. Cerebral ventricles: Normal ventricles. Paranasal sinuses: The paranasal sinuses are clear. Mastoid air cells: Trace fluid in the left anterior inferior mastoid air cells which are otherwise clear. The right mastoid air cells are clear. Bones: No acute osseous abnormalities are seen. Soft tissues: The soft tissues are within normal limits. CT/CT head wo con* [id number] IMPRESSION: 1. No acute intracranial pathology. 2. Trace fluid in the left anterior inferior mastoid air cells which are otherwise clear.
[2024-12-06 21:50] LABS: Lactic Sepsis W/Reflex 1.1 mmol/L (0.5-2.2)
[2024-12-06 21:51] LABS: Alanine Aminotransferase 9 U/L (0-33); Albumin Level 3.7 g/dL (3.5-5.2); Alkaline Phosphatase 96 U/L (35-105); Anion Gap 16.4 (5-19); Aspartate Amino Transferase 12 U/L (0-32); Blood Urea Nitrogen 16 mg/dL (8-23); Calcium 8.8 mg/dL (8.5-10.5); Carbon Dioxide 24 mmol/L (22-29); Chloride 105 mmol/L (98-107); Creatinine Clr Calc Pharmacy 127.1773; Globulin 3.2 g/dL (1.3-4.6); Glucose 88 mg/dL (65-115); Osmolality Calculated 295 mOsm/kg (285-295); Potassium 3.4 mmol/L (3.5-5.1); Sodium 142 mmol/L (136-145); Total Protein 6.9 g/dL (6.6-8.7)
[2024-12-06] MEDS: iohexol 350 mg/mL 500 mL Btl (per mL) IV (21:55)
[2024-12-06] MEDS: ondansetron 2 mg/ML SDV 2 mL 4 MG IVP (22:08)
[2024-12-06 22:10] VITALS: BP 155/79; PULSE 78; O2SAT 96
[2024-12-06] MEDS: LORazepam 1 MG/0.5 ML injection IVP (22:12)
[2024-12-06 22:17] VITALS: BP 170/79; PULSE 85; RESP 16; O2SAT 96
--- NOTE | 2024-12-06 22:18 | PC.NURSE ---
pt staring off at ceiling. Pt states I Mariela and then pt quit talking and quit responding to this nurse. Dr. Davenport notified and in room. Pt is now verbally talking a/o.
[2024-12-06 22:25] VITALS: RESP 18; O2SAT 97
[2024-12-06] MEDS: morphine 4 mg/mL SDV 1 mL IVP (22:25)
[2024-12-06 22:26] VITALS: BP 146/93; PULSE 81; O2SAT 97
--- NOTE | 2024-12-06 23:07 | PC.NURSE ---
PT c/o left IV pain, noted swelling and redness. This nurse checked patency and line is no good, IV removed with catheter intact. pressure dressing applied.
--- NOTE | 2024-12-06 23:07 | PC.NURSE ---
Pt in room with family members on each side, pt upset. Pt VS WNLs.
[2024-12-07] VITALS (10 sets, daily range): BP systolic 131–210; BP diastolic 76–96; PULSE 68–88; RESP 15–18; TEMP 36.4–36.7; O2SAT 92–96; BMI 55.0
[2024-12-07] MEDS: methylPREDNISolone sod succ 125 mg/2 mL INJ 80 MG IVP
--- NOTE | 2024-12-07 02:01 | PM.HP ---
Providers/Chief Complaint Admitting Physician: Beata Angelo MD Chief Complaint: spot on face is worsening History of Present Illness Bindu Dewey is a 59 year old female with a past medical history of hypertension, currently visiting this area from [place] who developed initially a small abscess with progressing cellulitis over the cheek for which she presented into the emergency room yesterday. The swelling is located on the left cheek below the lower eyelid. She was diagnosed with erysipelas was started on cefdinir and doxycycline. She presents back into the emergency room stating that she has had no clinical improvement and her daughter is concerned that the swelling has in fact increased as of this evening. She is complaining of pain just below the left eye. CT of the orbits performed was negative for any orbital cellulitis. Patient does not recall any obvious trauma to the site, however states that she may have had a potential spider bite while working on her porch. Review of Systems General: Reports: 10 or more systems reviewed and unremarkable except in HPI and below Const: Denies: fever(s), chills or body aches Eyes: Denies: change in vision, blurry vision or photophobia ENMT: Reports: hoarseness; Denies: throat pain, enlarged tonsils, odynophagia or nasal congestion Card: Denies: chest pain, palpitations, irregular heart rhythm, edema, swelling of feet/ankles, lightheadedness, pre-syncope, dyspnea on exertion or orthopnea Resp: Denies: dyspnea, productive cough, non-productive cough, wheezing, stridor, pain on inspiration, change in phlegm color, hemoptysis or chest congestion GI: Denies: abdominal pain, nausea, vomiting, hematemesis, coffee ground emesis, dysphagia, heartburn, diarrhea, constipation, GI cramping, change in stool character, hematochezia or melena : Denies: flank pain, difficulty voiding, dysuria, urinary frequency, urinary urgency, urinary hesitancy or hematuria Musc: Denies: neck pain, back pain, extremity pain, joint swelling, joint warmth or deformity Neuro: Denies: headache(s), numbness in extremities, weakness in extremities, sensory changes, difficulty walking, frequent falls, dizziness, vertigo, behavioral changes, Slurred speech present or seizure-like activity Psych: Denies: anxiety, depression, suicidal ideation or homicidal ideation Endo: Denies: polyuria, polydipsia, tired all the time, cold intolerance or hot flashes Faustino/Lymph: Denies: easy bruising or easy bleeding Medications/Allergies Home Medications ?Medication ?Instructions ?Recorded ?Confirmed ?Last Taken ?Type cefdinir 300 mg capsule 300 mg PO BID 10 days #20 caps 12/06/24 12/07/24 12/06/24 18:30 Rx doxycycline hyclate 100 mg capsule 100 mg PO BID 10 days #20 caps 12/06/24 12/07/24 12/06/24 18:30 Rx acetaminophen 325 mg tablet 650 mg PO QID PRN Pain 12/07/24 12/07/24 Unknown History amlodipine 5 mg tablet 5 mg PO DAILY 12/07/24 12/07/24 12/06/24 08:00 History carvedilol 6.25 mg tablet 6.25 mg PO BID 12/07/24 12/07/24 12/06/24 08:00 History cyclobenzaprine 5 mg tablet 5 mg PO BEDTIME 12/07/24 12/07/24 12/05/24 20:00 History duloxetine 60 mg capsule,delayed 120 mg PO BEDTIME 12/07/24 12/07/24 12/05/24 20:00 History release ergocalciferol (vitamin D2) 1,250 1,250 mcg PO Q7D 12/07/24 12/07/24 12/01/24 08:00 History mcg (50,000 unit) capsule (Vitamin D2) montelukast 10 mg tablet 10 mg PO DAILY 12/07/24 12/07/24 Unknown History omeprazole 40 mg capsule,delayed 40 mg PO BEDTIME 12/07/24 12/07/24 12/05/24 20:00 History release oxybutynin chloride 5 mg tablet 5 mg PO BEDTIME 12/07/24 12/07/24 12/05/24 20:00 History tramadol 50 mg tablet 50 mg PO BID PRN Pain 12/07/24 12/07/24 12/01/24 History Allergies Allergy/AdvReac Type Severity Reaction Status Date / Time JUSTINE Inhibitors Allergy ADR-Cough Verified 12/05/24 22:21 hydrogen peroxide Allergy ALGY-Bliste Verified 12/06/24 21:26 r ketamine Allergy ALGY-Anaphy Verified 12/06/24 21:25 laxis NSAIDS (Non-Steroidal Allergy Unknown Verified 12/05/24 22:22 Anti-Inflamma Vitals/I&O/Wt Last Vital Signs Temp 98.2 F 12/06/24 20:56 Pulse 71 12/07/24 01:51 Resp 18 12/07/24 01:51 BP 210/85 12/07/24 01:51 Pulse Ox 95 12/07/24 01:51 O2 Del Method Room Air 12/06/24 22:26 12/06/24 12/06/24 12/07/24 14:59 22:59 06:59 Intake Total 50 / 50 300 / 350 Balance 50 / 50 300 / 350 Weight last 48 hrs Weight 149.685 kg Physical Exam Narrative: General: No acute distress, AO x3 HEENT: PERRLA, pupils bilaterally equal and reactive, EOMI Chest: Normal vesicular breath sounds, no added sounds, equal good air entry bilaterally CVS: S1-S2 regular, no murmurs, no tachycardia, no gallops, no rubs Abdomen: Soft, nontender, no organomegaly, bowel sounds present Neuro: No focal deficits, no facial deformity, AO x3, power 5/5 in all limbs EXT: small area of induration and swelling over the left cheek located jult below the lower eyelid Data 12/06/24 21:20 12/06/24 21:20 Other data: Radiology Impressions Orbit CT 12/06/24 21:19 IMPRESSION: Mild skin thickening and subcutaneous edema in the left infraorbital region compatible with cellulitis. No evidence of orbital cellulitis. Head CT 12/06/24 21:47 IMPRESSION: 1. No acute intracranial pathology. 2. Trace fluid in the left anterior inferior mastoid air cells which are otherwise clear. Laboratory Results WBC 5.80 10^3/uL (3.29-11.43) 12/06/24 21:20 RBC 4.23 10^6/uL (3.85-5.65) 12/06/24 21:20 Hgb 11.20 g/dL (11.27-16.99) L 12/06/24 21:20 Hct 35.9 % (36-47) L 12/06/24 21:20 MCV 84.9 fl (85-98) L 12/06/24 21:20 MCH 26.5 pg (27-33) L 12/06/24 21:20 MCHC 31.2 g/dL (30-55) 12/06/24 21:20 RDW 13.4 % (12.1-15.1) 12/06/24 21:20 Plt Count 227 10^3/cmm (157-399) 12/06/24 21:20 MPV 11.0 fL (7.4-10.4) H 12/06/24 21:20 Neut % (Auto) 51.5 % 12/06/24 21:20 Lymph % (Auto) 36.6 % 12/06/24 21:20 [place] % (Auto) 9.1 % 12/06/24 21:20 Eos % (Auto) 1.9 % 12/06/24 21:20 Baso % (Auto) 0.7 % 12/06/24 21:20 Neut # (Auto) 2.99 10^3/uL (1.8-7.7) 12/06/24 21:20 Lymph # (Auto) 2.1 10^3/uL (0.8-4.8) 12/06/24 21:20 [place] # (Auto) 0.5 10^3/uL (0.2-0.9) 12/06/24 21:20 Eos # (Auto) 0.1 10^3/uL (0.0-0.8) 12/06/24 21:20 Baso # (Auto) 0.0 10^3/uL (0.0-0.1) 12/06/24 21:20 Nucleated RBC % (auto) 0 % 12/06/24 21:20 Nucleated RBCs # 0.0 /100WBC 12/06/24 21:20 ESR 27 mm/hr (0-15) H 12/06/24 21:20 Sodium 142 mmol/L (136-145) 12/06/24 21:20 Potassium 3.4 mmol/L (3.5-5.1) L 12/06/24 21:20 Chloride 105 mmol/L (98-107) 12/06/24 21:20 Carbon Dioxide 24 mmol/L (22-29) 12/06/24 21:20 Anion Gap 16.4 (5-19) 12/06/24 21:20 BUN 16 mg/dL (8-23) 12/06/24 21:20 Creatinine 0.7 mg/dL (0.5-0.9) 12/06/24 21:20 GFR Calculation 85.1 mL/min (90-130) L 12/06/24 21:20 Glucose 88 mg/dL (65-115) 12/06/24 21:20 Estimat Average Glucose 105 12/06/24 21:20 Hemoglobin A1c 5.3 % (4.0-6.0) 12/06/24 21:20 Calculated Osmolality 295 mOsm/kg (285-295) 12/06/24 21:20 Lactic Acid 1.1 mmol/L (0.5-2.2) 12/06/24 21:20 Calcium 8.8 mg/dL (8.5-10.5) 12/06/24 21:20 Total Bilirubin 0.5 mg/dL (0.15-1.2) 12/06/24 21:20 AST 12 U/L (0-32) 12/06/24 21:20 ALT 9 U/L (0-33) 12/06/24 21:20 Alkaline Phosphatase 96 U/L (35-105) 12/06/24 21:20 C-Reactive Protein 16.8 mg/L (0.0-4.9) H 12/06/24 21:20 Total Protein 6.9 g/dL (6.6-8.7) 12/06/24 21:20 Albumin 3.7 g/dL (3.5-5.2) 12/06/24 21:20 Globulin 3.2 g/dL (1.3-4.6) 12/06/24 21:20 Nasal MRSA (PCR) Not detected (Not Detecte) 12/07/24 03:33 A&P Assessment and plan 1. Periorbital cellulitis of left eye: Cellulitis affecting left side of the face just below the left lower eyelid. CT of the orbits showing mild skin thickening and subcutaneous edema in the left infraorbital region compatible with cellulitis. There is no evidence of orbital cellulitis. No evidence of any periosteal abscess. Extraocular movements are intact. There is no proptosis congestion or visual disturbances at this time. Given failure of oral antibiotics and progression in spite of being started on oral antibiotics, will start patient on IV treatment with empiric piperacillin/tazobactam and vancomycin at this time. MRSA nares is requested to ascertain if patient may be MRSA colonized. Closely monitor for improvement Check HbA1c 2. Uncontrolled hypertension: Uncontrolled hypertension with blood pressure 191/101 in the emergency room. It appears there was a concern for some transient aphasia for which patient underwent CT of the head which did not show any abnormalities. At the time of my assessment patient is alert awake and oriented x 3 without any focal neurological deficits. She has received 20 mg of IV labetalol in the ER following which blood pressure is currently improved at 131/81. Will continue patient's usual antihypertensive home regimen with amlodipine 5 mg daily and carvedilol 6.25 mg p.o. twice daily. Plan: DVT prophylaxis: Lovenox 40 Full code PDMP PDMP Reviewed: Not Reviewed Attestations Medical Necessity Statement*: Greater than 2 midnight stay is anticipated Coding Level of Care Code Acute Code for Chg Fwd High MDM includes number and complexity of problems actively addressed during encounter, amount and/or complexity of data reviewed/ordered and described risk of complication, morbidity or mortality of management as documented Diagnoses Periorbital cellulitis of left eye L03.213 Uncontrolled hypertension I10
[2024-12-07 02:32] LABS: Estmated Average Glucose 105; Hemoglobin A1C 5.3 % (4.0-6.0)
--- NOTE | 2024-12-07 03:07 | ECG_ITS ---
[facility]: 2024[facility]12[facility]07 Pat Name: Bindu Dewey Department: Room: 279 Gender: Female [employer] Director: : [id number] Requested By: Beaat Angelo Order Number: [id number] Saida MD: Sheri Umaña M.D. Measurements Intervals [place] Rate: 68 P: 56 FL: 182 QRS: -10 QRSD: 107 T: 30 QT: 417 QTc: 445 Interpretive Statements SINUS RHYTHM WITH SINUS ARRHYTHMIA INTERPRETATION BASED ON A DEFAULT AGE OF 40 YEARS No previous ECG available for comparison Electronically Signed On 12-09-2024 10:08:21 CDT by Sheri Umaña M.D. [email or web address]
[2024-12-07] MEDS: hyDRALAzine 20 mg/mL INJ 1 mL 10 MG IVP (03:20)
[2024-12-07 05:41] LABS: MRSA PCR OZH (swab) NOT DETECTED (Not Detecte)
[2024-12-07] MEDS: piperacillin-tazobactam 4.5 GM in sodium chloride 0.9% (plus) 50 ML IV (06:05)
[2024-12-07] MEDS: vancomycin 1,750 MG/350 ML PIGGYBACK 175 MG IV ×2 (11:47→23:40)
--- NOTE | 2024-12-07 15:06 | PHA.VACGOAL ---
Vancomycin Goal - Goal Vancomycin Goal:: 10-15 mg/L Vancomycin Indication:: Other (Periorbital cellulitis of left eye) - Therapy Current therapy:: Pip/Tazo Day of therpy:: Day [1]of [] . Actual body weight (kg): 150.956 kg - Data Labs: WBC 5.80 10^3/uL (3.29-11.43) 12/06/24 21:20 RBC 4.23 10^6/uL (3.85-5.65) 12/06/24 21:20 Hgb 11.20 g/dL (11.27-16.99) L 12/06/24 21:20 Hct 35.9 % (36-47) L 12/06/24 21:20 MCV 84.9 fl (85-98) L 12/06/24 21:20 MCH 26.5 pg (27-33) L 12/06/24 21:20 MCHC 31.2 g/dL (30-55) 12/06/24 21:20 RDW 13.4 % (12.1-15.1) 12/06/24 21:20 Sodium 142 mmol/L (136-145) 12/06/24 21:20 Potassium 3.4 mmol/L (3.5-5.1) L 12/06/24 21:20 Chloride 105 mmol/L (98-107) 12/06/24 21:20 Carbon Dioxide 24 mmol/L (22-29) 12/06/24 21:20 Anion Gap 16.4 (5-19) 12/06/24 21:20 BUN 16 mg/dL (8-23) 12/06/24 21:20 Creatinine 0.7 mg/dL (0.5-0.9) 12/06/24 21:20 GFR Calculation 85.1 mL/min (90-130) L 12/06/24 21:20 Treatment plan:: new consult Regimen:: New start vancomycin for Periorbital cellulitis of left eye. No prior vancomycin history found. 1500 mg dose given in the ER. Started on maintenance dose of 1750 mg q12h.
[2024-12-07] MEDS: piperacillin-tazobactam 3.375 GM in sodium chloride 0.9% (plus) 50 ML IV (16:04)
[2024-12-07] MEDS: lactobacillus 1 Tablet 1 TAB PO (17:10)
--- NOTE | 2024-12-07 18:04 | PM.PN ---
Subjective Subjective: 59-year-old female admitted last night has had pain and swelling of her left cheek with associated cellulitis. She had pins and needle burning but not vision loss. She was admitted for IV antibiotics. Patient states symptoms began to the smallest degree on possibly a spider bite. She came in on Sunday night and was treated with antibiotics which I see were doxycycline and cefdinir. She also received Rocephin x 1 in the emergency department. Daughter Patience present at bedside and both of them are visiting from [facility] arriving Sunday. Patience states that 11:30 AM Sunday the swelling was basically resolved and by 530 no significant rash but patient not feeling well decided to skip buffet dinner that everybody else was going to. By 7:30 PM on Sunday the face was reswollen and patient came to the emergency department. Patience notes the patient was talking a lot and then had hypertension and was quiet. CT scan of the head was done patient reports that she could not form words. It looks like she had systolic blood pressure 180-200 treated with morphine generally improved blood pressure medicines increased from her usual carvedilol and amlodipine to include hydralazine. Blood pressure is much improved Patient did receive methylprednisolone 80 mg in the emergency department CT of the orbits shows mild skin thickening and subcutaneous edema in the left infraorbital region compatible with cellulitis without orbital cellulitis. CT of the head trace fluid in the left anterior mastoid cells but no intracranial pathology Today the patient is complaining of itching of the face and pressure and [id number]. She denies hearing loss she has never had shingles or had a shingles vaccine. She had chickenpox in the 80s she had cataracts 15 years ago and wears glasses left eye vision typically similar to right she denies glaucoma and has yearly eye exam with her new glasses last time was a year ago. She has never had a stroke other than the symptoms yesterday she has had depression mild never been hospitalized for it she had recent promotion and is finding that stressful but it was a promotion that she wanted and a challenge not a unwanted stress. Vitals/I&O/Wt Last Vital Signs Temp 97.7 F 12/07/24 15:54 Pulse 78 12/07/24 15:54 Resp 18 12/07/24 15:54 BP 134/83 12/07/24 15:54 Pulse Ox 94 12/07/24 15:54 O2 Del Method Room Air 12/07/24 15:54 12/07/24 12/07/24 12/07/24 06:59 14:59 22:59 Intake Total 300 / 350 980.625 / 980.625 350 / 1330.625 Balance 300 / 350 980.625 / 980.625 350 / 1330.625 Weight last 48 hrs Weight 150.956 kg Weight 150.139 kg Weight 149.685 kg Physical Exam Narrative: General well-developed well-nourished female morbidly obese she is alert oriented pleasant CV regular rate and rhythm Lungs clear to auscultation bilaterally Face she has swelling on the left face about an inch down from the eye with the pea shaped in size area of induration without fluctuance there is mild erythema. This is decreased from photos that the patient's daughter have from yesterday There is no rash on the tip of the nose. Pupils are equally round and reactive to light accommodation external ocular movements are intact I checked her vision at 2 feet reading the numbers on her hospital issue water bottle and she is able to read all the numbers with either eye individually. Neck is supple Data 12/06/24 21:20 12/06/24 21:20 A&P Assessment and plan 1. Periorbital cellulitis of left eye: Cellulitis affecting left side of the face just below the left lower eyelid. CT of the orbits showing mild skin thickening and subcutaneous edema in the left infraorbital region compatible with cellulitis. There is no evidence of orbital cellulitis. Will start dexamethasone and heat to the left cheek. Continue with current antibiotics. Hold off on treating empirically for shingles as I do not see blisters or obvious shingles rash. The V1 ophthalmic nerve branch would need to be involved on the trigeminal nerve to affect the eye and that typically involves the tip of the nose. There is no rash crossing midline but also no rash on the tip of the nose. 2. Uncontrolled hypertension: Uncontrolled hypertension with blood pressure 191/101 in the emergency room. It appears there was a concern for some transient aphasia for which patient underwent CT of the head which did not show any abnormalities. At the time of my assessment patient is alert awake and oriented x 3 without any focal neurological deficits. She has received 20 mg of IV labetalol in the ER following which blood pressure is currently improved at 131/81. Will continue patient's usual antihypertensive home regimen with amlodipine 5 mg daily and carvedilol 6.25 mg p.o. twice daily. This is improved but ongoing to start losartan 25 mg daily Plan: DVT prophylaxis: Lovenox 40 Full code PDMP PDMP Reviewed: Not Reviewed Attestations Medical Necessity Statement*: Patient needs to be hospitalized and monitor closely for her infraorbital cellulitis. Reevaluate in the morning Coding Level of Care Code Acute Code for Chg Fwd Diagnoses Periorbital cellulitis of left eye L03.213 Uncontrolled hypertension I10 Time Spent (min) 45 Comment Extended care 30 minutes [id number]
[2024-12-08] VITALS (7 sets, daily range): BP systolic 131–164; BP diastolic 69–82; PULSE 71–87; RESP 17–18; TEMP 36.4–36.8; O2SAT 93–96
[2024-12-08] MEDS: piperacillin-tazobactam 3.375 GM in sodium chloride 0.9% (plus) 50 ML IV ×2 (01:48→08:26)
[2024-12-08 05:28] LABS: Hematocrit 36.6 % (36-47); Hemoglobin 11.50 g/dL (11.27-16.99); Mean Corpuscular HGB Conc 31.4 g/dL (30-55); Mean Corpuscular Hemoglobin 27.4 pg (27-33); Mean Corpuscular Volume 87.1 fl (85-98); Nucleated Red Blood Cells % 0 %; Platelet Count 210 10^3/cmm (157-399); Red Blood Count 4.20 10^6/uL (3.85-5.65); White Blood Count 8.41 10^3/uL (3.29-11.43)
[2024-12-08 05:48] LABS: Alanine Aminotransferase 8 U/L (0-33); Albumin Level 3.3 g/dL (3.5-5.2); Alkaline Phosphatase 88 U/L (35-105); Anion Gap 13.1 (5-19); Aspartate Amino Transferase 10 U/L (0-32); Blood Urea Nitrogen 18 mg/dL (8-23); Calcium 9.1 mg/dL (8.5-10.5); Carbon Dioxide 27 mmol/L (22-29); Chloride 105 mmol/L (98-107); Creatinine Clr Calc Pharmacy 111.6178; Globulin 3.5 g/dL (1.3-4.6); Glucose 107 mg/dL (65-115); Osmolality Calculated 294 mOsm/kg (285-295); Potassium 4.1 mmol/L (3.5-5.1); Sodium 141 mmol/L (136-145); Total Protein 6.8 g/dL (6.6-8.7)
[2024-12-08] MEDS: lactobacillus 1 Tablet 1 TAB PO ×2 (08:27→16:56)
--- NOTE | 2024-12-08 10:10 | PC.CHAP ---
Pastoral Care Encounter/Spiritual Assessment Type of Contact [] Declined biodiesel division manager visit [] Patient/Family/Request visit [] Outpatient visit [] Follow-up visit [] Physician referral [] Code/Alert [] Routine visit [] Staff referral [] Actively dying [] Patient sleeping [] Family support [] [] Out of room [] Palliative care [] [x] Receiving care in room [] Pre-surgical visit [] Trauma [] Long length of stay [] ICU visit [] Other: Relational/Emotional Strength [] Patient feels connected with others/family/visitors/staff [] Distress [] Loneliness/isolation [] Abandonment Spirituality of Patient [] Person of Swathi [] Attends [employer] of their Swathi [] Believes in Prayer [] Reads Bible or Tenriism materials [] There are Spiritual issues to be addressed Juvenile Probation Officer Interventions [] Prayer [] Active listening [] Non-anxious presence [] Spiritual/emotional support [] Crisis/trauma care [] Spiritual counseling [] Bereavement support [] Provided bereavement packet [] Provided Bible/devotional materials [] Provided toy/stuffed animal, coloring book to patient or family member [] Provided Communion [] Anointing/[place] [] Salvation [] Completed spiritual assessment [] Other: Impact on Illness or Injury [] Angry [] Fearful [] Anxious [] Often cries [] Exhaustion [] Unable to work [] Unable to attend mosque [] Unable to walk/stand [] Unable to read [] Unable to drive [] Unable to eat/drink [] Unable to sleep [] Unable to be with family [] Patient intubated [] Other: Summary Time spent with patient
[2024-12-08] MEDS: vancomycin 1,750 MG/350 ML PIGGYBACK 175 MG IV (12:20)
--- NOTE | 2025-01-09 01:17 | P.DS_ITS ---
Discharge Providers Date of Admission: 12/07/24 00:59 Date of Discharge: December 08, 2024 Attending Provider at Admission: Beata Angelo MD Attending Provider at Discharge: Mesfin Franks MD Consults: None Diagnoses at Discharge Discharge Diagnosis 1. Periorbital cellulitis of left eye: Details from hospital stay: Patient with cellulitis of the left upper cheek below the eye and itching of the eye but no vision loss. This did not appear to be shingles or conjunctivitis. Itching due to inflammation around the eye this responded to antibiotics and steroids and patient did well and was discharged home 2. Uncontrolled hypertension: Details from hospital stay: Improved with treatment meds adjusted for discharge Reason for Visit Reason for Visit: spot on face is worsening Brief History: Bindu Dewey is a 59 year old female with a past medical history of hypertension, currently visiting this area from [place] who developed initially a small abscess with progressing cellulitis over the cheek for which she presented into the emergency room yesterday. The swelling is located on the left cheek below the lower eyelid. She was diagnosed with erysipelas was started on cefdinir and doxycycline. She presents back into the emergency room stating that she has had no clinical improvement and her daughter is concerned that the swelling has in fact increased as of this evening. She is complaining of pain just below the left eye. CT of the orbits performed was negative for any orbital cellulitis. Patient does not recall any obvious trauma to the site, however states that she may have had a potential spider bite while working on her porch. Hospital Course Hospital Course Patient had itching and pain in the eye for which she was using ice but that slowed healing. We applied heat and the indurated area on her left cheek dissipated. She was also given steroids in the form of Decadron. Cellulitis affecting left side of the face just below the left lower eyelid. CT of the orbits showing mild skin thickening and subcutaneous edema in the left infraorbital region compatible with cellulitis. There is no evidence of orbital cellulitis. Will start dexamethasone and heat to the left cheek. Continue with current antibiotics. Hold off on treating empirically for shingles as I do not see blisters or obvious shingles rash. The V1 ophthalmic nerve branch would need to be involved on the trigeminal nerve to affect the eye and that typically involves the tip of the nose. There is no rash crossing midline but also no rash on the tip of the nose. Patient was discharged home. Heading back to [place] to follow-up with her PCP Physical Exam Narrative: General well-developed well-nourished female morbidly obese she is alert oriented pleasant CV regular rate and rhythm Lungs clear to auscultation bilaterally Face she has swelling on the left face about an inch down from the eye with the pea shaped in size area of induration without fluctuance there is mild erythema. This is decreased from photos that the patient's daughter have from yesterday There is no rash on the tip of the nose. Pupils are equally round and reactive to light accommodation external ocular movements are intact I checked her vision at 2 feet reading the numbers on her hospital issue water bottle and she is able to read all the numbers with either eye individually. Neck is supple Discharge Data Studies Completed and Pending Completed Studies During Hospitalization Category Date Time Status CT head wo con* [id number] Stat Cat Scan 12/06/24 21:[address] orbit BI w con [id number] Stat Cat Scan 12/06/24 21:19 Completed Radiology Impressions Orbit CT 12/06/24 21:19 IMPRESSION: Mild skin thickening and subcutaneous edema in the left infraorbital region compatible with cellulitis. No evidence of orbital cellulitis. Head CT 12/06/24 21:47 IMPRESSION: 1. No acute intracranial pathology. 2. Trace fluid in the left anterior inferior mastoid air cells which are otherwise clear. Laboratory Results WBC 8.41 10^3/uL (3.29-11.43) 12/08/24 05:21 RBC 4.20 10^6/uL (3.85-5.65) 12/08/24 05:21 Hgb 11.50 g/dL (11.27-16.99) 12/08/24 05:21 Hct 36.6 % (36-47) 12/08/24 05:21 MCV 87.1 fl (85-98) 12/08/24 05:21 MCH 27.4 pg (27-33) 12/08/24 05:21 MCHC 31.4 g/dL (30-55) 12/08/24 05:21 RDW 13.4 % (12.1-15.1) 12/08/24 05:21 Plt Count 210 10^3/cmm (157-399) 12/08/24 05:21 MPV 10.7 fL (7.4-10.4) H 12/08/24 05:21 Neut % (Auto) 73.7 % 12/08/24 05:21 Lymph % (Auto) 19.1 % 12/08/24 05:21 [place] % (Auto) 6.3 % 12/08/24 05:21 Eos % (Auto) 0.1 % 12/08/24 05:21 Baso % (Auto) 0.4 % 12/08/24 05:21 Neut # (Auto) 6.20 10^3/uL (1.8-7.7) 12/08/24 05:21 Lymph # (Auto) 1.6 10^3/uL (0.8-4.8) 12/08/24 05:21 [place] # (Auto) 0.5 10^3/uL (0.2-0.9) 12/08/24 05:21 Eos # (Auto) 0.0 10^3/uL (0.0-0.8) 12/08/24 05:21 Baso # (Auto) 0.0 10^3/uL (0.0-0.1) 12/08/24 05:21 Nucleated RBC % (auto) 0 % 12/08/24 05:21 Nucleated RBCs # 0.0 /100WBC 12/08/24 05:21 ESR 27 mm/hr (0-15) H 12/06/24 21:20 Sodium 141 mmol/L (136-145) 12/08/24 05:21 Potassium 4.1 mmol/L (3.5-5.1) 12/08/24 05:21 Chloride 105 mmol/L (98-107) 12/08/24 05:21 Carbon Dioxide 27 mmol/L (22-29) 12/08/24 05:21 Anion Gap 13.1 (5-19) 12/08/24 05:21 BUN 18 mg/dL (8-23) 12/08/24 05:21 Creatinine 0.8 mg/dL (0.5-0.9) 12/08/24 05:21 GFR Calculation 72.9 mL/min (90-130) L 12/08/24 05:21 Glucose 107 mg/dL (65-115) 12/08/24 05:21 Estimat Average Glucose 105 12/06/24 21:20 Hemoglobin A1c 5.3 % (4.0-6.0) 12/06/24 21:20 Calculated Osmolality 294 mOsm/kg (285-295) 12/08/24 05:21 Lactic Acid 1.1 mmol/L (0.5-2.2) 12/06/24 21:20 Calcium 9.1 mg/dL (8.5-10.5) 12/08/24 05:21 Total Bilirubin 0.3 mg/dL (0.15-1.2) 12/08/24 05:21 AST 10 U/L (0-32) 12/08/24 05:21 ALT 8 U/L (0-33) 12/08/24 05:21 Alkaline Phosphatase 88 U/L (35-105) 12/08/24 05:21 C-Reactive Protein 8.9 mg/L (0.0-4.9) H 12/08/24 05:21 Total Protein 6.8 g/dL (6.6-8.7) 12/08/24 05:21 Albumin 3.3 g/dL (3.5-5.2) L 12/08/24 05:21 Globulin 3.5 g/dL (1.3-4.6) 12/08/24 05:21 Nasal MRSA (PCR) Not detected (Not Detecte) 12/07/24 03:33 Vitals Last Vital Signs Temp 97.9 F 12/08/24 20:11 Pulse 78 12/08/24 20:11 Resp 18 12/08/24 20:11 BP 164/82 12/08/24 20:11 Pulse Ox 95 12/08/24 20:11 O2 Del Method Room Air 12/08/24 16:00 Discharge Plan Discharge Patient Disposition: Home Condition: Stable Prescriptions: New Lactobacillus acidoph-L.bulgar 1 million cell Tablet 1 tab PO BID Qty: 60 0RF losartan 50 mg Tablet 50 mg PO DAILY Qty: 30 0RF diphenhydramine HCl [Banophen] 25 mg Capsule 25 mg PO Q4H PRN (Reason: Itching) Qty: 20 0RF dexamethasone 4 mg Tablet 4 mg PO BID Qty: 6 0RF amlodipine 10 mg Tablet 10 mg PO DAILY Qty: 30 0RF Continued acetaminophen 325 mg Tablet 650 mg PO QID PRN (Reason: Pain) omeprazole 40 mg capsule,delayed release(DR/EC) 40 mg PO BEDTIME tramadol 50 mg tablet 50 mg PO BID PRN (Reason: Pain) montelukast 10 mg tablet 10 mg PO DAILY ergocalciferol (vitamin D2) [Vitamin D2] 1,250 mcg (50,000 unit) capsule 1,250 mcg PO Q7D oxybutynin chloride 5 mg tablet 5 mg PO BEDTIME cyclobenzaprine 5 mg tablet 5 mg PO BEDTIME duloxetine 60 mg capsule,delayed release(DR/EC) 120 mg PO BEDTIME carvedilol 6.25 mg tablet 6.25 mg PO BID Qty: 30 0RF Discontinued amlodipine 5 mg tablet 5 mg PO DAILY Discharge Order = DC NOW: Discharge Order (Routine); Ordered 12/08/24 Ordered By: Mesfin Franks Discharge Diet: Cardiac Patient Instructions: Diphenhydramine (By mouth), Amlodipine (By mouth), Losartan (By mouth), Dexamethasone (By mouth), Probiotic (By mouth), Orbital Cellulitis (DC), Periorbital Cellulitis (ED), Opioid Safety, Pain Management, Patient Portal & Alison Instructions Activity Restrictions/Additional Instructions: Recommend healthy low-carb calorie restricted diet to 2000 santa daily Warm compresses to left cheek to promote blood flow and healing and antibiotic penetration Take antibiotics that you have at home as prescribed for the rest of the 10-day course Return if you have double vision worsened eye pain or fevers Return if cheek swelling worsens and pain to touch worsens Can apply triple antibiotic ointment to area on face and cover with bandaid so that glasses do not irritate area. Discharge Attestations Time Spent in Discharge Care*: greater than 30 min Quality Metrics Clinical Quality Measures [ No reported AMI, CVA or VTE this stay] Coding Level of Care Code Acute Code for g Fwd Diagnoses Periorbital cellulitis of left eye L03.213 Uncontrolled hypertension I10
== END 2024-12-08 20:00 | disposition home or self-care (01) | DRG 603 ==
LOC: ER 12-07 00:32 → MEDSURG 12-07 01:00
PROVIDERS: Admitting Provider Student in an Organized Health Care Education/Training Program; Emergency Provider Emergency Medicine; Visit Provider Internal Medicine
DX: L03.213 Periorbital cellulitis (principal); I10 Essential (primary) hypertension; Z79.891 Long term (current) use of opiate analgesic; A46 Erysipelas
CPT/HCPCS: 36415; 70450; 70481; 80053; 83036; 83605; 85025; 85651; 86140; 93005; 96365; 96367; 96372; 96375; 99285; J0360; J1650; J2060; J2270; J2405; J2543; J2919; J3372; J3373; J8540; J9999